=== PATIENT | female | born 1960 | race African-American/Black ===

== ENCOUNTER 2018-06-26 15:43 | Emergency (ER) | payer OTHER ==
--- NOTE | 2018-06-26 15:54 | PDOC ---
Rapid Medical Evaluation Time Seen by Provider: 06/26/18 15:51 Medical Evaluation: 06/26/18 15:51 HPI:Left sided abdominal pain and flan pain with radiation of symptoms PE:No gross deficits. ORDERS: Belly labs and UA Discharge Disposition - Diagnosis Abdominal pain - Referrals - Patient Instructions - Post Discharge Activity
[2018-06-26 15:56] VITALS: BP 146/80; PULSE 91; TEMP 98; BMI 33.3
--- NOTE | 2018-06-26 16:50 | PDOC ---
History of Present Illness - General Chief Complaint: Pain Stated Complaint: SENT BY URGENT CARE / ABD PAIN Time Seen by Provider: 06/26/18 15:51 History Source: Patient Exam Limitations: No Limitations - History of Present Illness Initial Comments: 06/26/18 17:06 58 y/o female with hx/o dm, ckd, htn c/o atrauamtic llq and left lower back pain for 2-3 days, waxing in severity, dull, w/o alleviating or excacerbating factors, partially positional. pt rates it at a 4 in the ED REVIEW OF SYSTEMS CONSTITUTIONAL: No fever, no chills, no fatigue EYES: No visual changes ENT: No ear pain, no sore throat CARDIOVASCULAR: No chest pain, no palpitations RESPIRATORY: No cough, no SOB GI: + abdominal pain, + nausea, no vomiting, no constipation, no diarrhea GENITOURINARY: No dysuria, no frequency, no hematuria MUSKULOSKELETAL: + backpain, no joint pain, no myalgias SKIN: No rash NEURO: No headache EXAMINATION CONSTITUTIONAL: Well-appearing; well-nourished; in no apparent distress HEAD: Normocephalic; atraumatic EYES: PERRL; EOM intact ENMT: External appears normal; normal oropharynx NECK: Supple; non-tender; no cervical lymphadenopathy CARD: Normal S1, S2; no murmurs, rubs, or gallops RESP: Normal chest excursion with respiration; breath sounds clear and equal bilaterally; no wheezes, rhonchi, or rales ABD: Soft, non-distended; + minimal left lower quadrant tender deep; no palpable organomegaly, no palpable hernias; no CVA tenderness bilaterally; EXT: Normal ROM in all four extremities; non-tender to palpation; distal pulses intact; + minimal left air spinal lower back tenderness to palpation with a negative straight leg raise bilaterally. SKIN: Warm, dry, no rash NEURO: No focal neurological deficiencies. Past History - Past Medical History Allergies/Adverse Reactions: Allergies Allergy/AdvReac Type Severity Reaction Status Date / Time No Known Allergies Allergy Verified 06/26/18 15:51 Home Medications: Ambulatory Orders Amlodipine Besylate 10 mg PO DAILY 06/26/18 Benazepril HCl 40 mg PO DAILY 06/26/18 Ferric Citrate [Auryxia] 210 mg PO DAILY 05/08/19 Glimepiride 4 mg PO DAILY 06/26/18 CVA: No COPD: No CHF: No DVT: No Dementia: No Diabetes: Yes (NIDM) HTN: Yes Hypercholesterolemia: Yes - Immunization History Immunization Up to Date: Yes - Suicide/Smoking/Psychosocial Hx Smoking History: Never smoked Information on smoking cessation initiated: No Hx Alcohol Use: No Drug/Substance Use Hx: No *Physical Exam - Vital Signs Last Vital Signs Temp Pulse Resp BP Pulse Ox 98.0 F 91 H 16 146/80 99 06/26/18 15:52 06/26/18 15:52 06/26/18 15:52 06/26/18 15:52 06/26/18 15:52 ED Treatment Course - LABORATORY CBC & Chemistry Diagram: 06/26/18 17:25 06/26/18 19:53 Medical Decision Making - Medical Decision Making 06/26/18 20:02 58-year-old female with history of hypertension diabetes presents with atraumatic left-sided abdominal and low back pain. We'll rule out diverticulitis with CT of abdomen and pelvis with by mouth contrast. We'll administer IV fluids and Tylenol. Will reassess. 06/26/18 22:33 Patient reassessed. Patient is resting comfortably and is currently symptom- free. Repeat abdominal exam reveals no focal tenderness, there is no guarding or rebound, patient tolerates by mouth solids and liquids in the ER. CBC reveals no evidence of significant leukocytosis. CMP reveals elevated BUN to creatinine ratio. CT of abdomen and pelvis shows no evidence of acute intra- abdominal pathology. There is no evidence of acute appendicitis/diverticulitis/ SBO. Is no evidence of hydronephrosis or hydroureter. At this time, I believe patient is safe for outpatient discharge with PMD follow-up. *DC/Admit/Observation/Transfer Diagnosis at time of Disposition: Abdominal pain Qualifiers: Abdominal location: unspecified location Qualified Code(s): R10.9 - Unspecified abdominal pain Low back pain Qualifiers: Chronicity: acute Back pain laterality: left Sciatica presence: without sciatica Qualified Code(s): M54.5 - Low back pain - Discharge Dispostion Disposition: HOME Condition at time of disposition: Stable - Referrals Referrals: Nelda Solis MD [Staff Physician] - - Patient Instructions Printed Discharge Instructions: DI for Abdominal Pain-Adult, DI for Low Back Pain - Post Discharge Activity
[2018-06-26] MEDS ORDERED: SODIUM CHLORIDE 1,000 ML IV STA (17:01)
[2018-06-26] MEDS ORDERED: ACETAMINOPHEN 1000 MG/100 ML VIAL (NON FORMULARY) IVPB ONE (17:01)
[2018-06-26] MEDS ORDERED: ACETAMINOPHEN INJECTION 100 ML IVPB ONE (17:09)
[2018-06-26 17:36] LABS: BASO % 0.3 % (0-2.0); EOS % 1.6 % (0-4.5); HEMATOCRIT 31.1 % (32.4-45.2); HEMOGLOBIN 9.6 GM/dL (10.7-15.3); LYMPH % 16.6 % (8-40); MCH 27.8 pg (25.7-33.7); MEAN CELL VOLUME 89.5 fl (80-96); MEAN PLT VOLUME 9.4 fl (7.5-11.1); MONO % 13.2 % (3.8-10.2); NEUT % 68.3 % (42.8-82.8); PLATELET COUNT 250 K/MM3 (134-434); RBC 3.47 M/mm3 (3.60-5.2); WHITE BLOOD COUNT 8.6 K/mm3 (4.0-10.0)
[2018-06-26 17:59] LABS: URINE APPEARANCE CLEAR; URINE BILIRUBIN NEGATIVE (NEGATIVE); URINE COLOR YELLOW; URINE GLUCOSE (UA) NEGATIVE (NEGATIVE); URINE KETONE NEGATIVE (NEGATIVE); URINE LEUK ESTERASE NEGATIVE (NEGATIVE); URINE NITRITE NEGATIVE (NEGATIVE); URINE PROTEIN NEGATIVE (NEGATIVE); URINE UROBILINOGEN 0.2 mg/dL (0.2-1.0)
[2018-06-26 20:33] LABS: ALBUMIN 3.8 g/dl (3.4-5.0); BILIRUBIN,TOTAL 0.4 mg/dL (0.2-1); CALCIUM 9.2 mg/dL (8.5-10.1); CREATININE 1.7 mg/dL (0.55-1.3); POTASSIUM 4.1 mmol/L (3.5-5.1); TOT PROT 7.6 g/dl (6.4-8.2)
--- NOTE | 2018-06-27 17:17 | EKG ---
Test Reason : Blood Pressure : / mmHG Vent. Rate : 091 BPM Atrial Rate : 091 BPM P-R Int : 158 ms QRS Dur : 074 ms QT Int : 346 ms P-R-T Axes : 054 018 031 degrees QTc Int : 425 ms NORMAL SINUS RHYTHM NORMAL ECG NO PREVIOUS ECGS AVAILABLE Confirmed by PEYTON FREEMAN MD ([id number]) on 06/27/2018 5:17:33 PM Referred By: Confirmed By:PEYTON FREEMAN MD
== END 2018-06-26 23:04 | disposition home or self-care (01) ==
LOC: JER 15:43
PROC: 3E033NZ Introduction of Analgesics, Hypnotics, Sedatives into Peripheral Vein, Percutaneous Approach (ICD-10-PCS; principal; 2018-06-26)
DX: M54.5 Low back pain (principal); R10.9 Unspecified abdominal pain
CPT/HCPCS: 36415; 74176-TC; 80053; 81003; 85025; 87086; 93005; 93010; 99283-25; J0131; J7030

== ENCOUNTER 2019-10-27 00:03 | Inpatient (IN) | payer OTHER ==
[2019-10-27] MEDS ORDERED: SODIUM CHLORIDE 0.9% 500 ML INFUS.BAG IV ONE (01:57)
[2019-10-27] MEDS ORDERED: ACETAMINOPHEN 500 MG TABLET (FP) PO ONE (01:57)
--- NOTE | 2019-10-27 02:01 | PDOC ---
Attending Attestation - Resident Resident Name: Iain Cote - ED Attending Attestation I have performed the following: I have examined & evaluated the patient, The case was reviewed & discussed with the resident, I agree w/resident's findings & plan - HPI HPI: 10/27/19 04:04 Pt comes with fever and cough and feeling crummy at home. States that she thinks she has a UTI and or pneumonia and that due to her infection, she has uncontroll ed blood sugars. She has no abd pain and no N/V/D or constipation or abd pain SHe has no flank pain. - Physicial Exam PE: 10/27/19 04:04 Agree with resident exam 10/27/19 06:38 Pt has normal heart and lungs. Fever in the ER on arrival; now defervesced. Pt is aleert and awake and states that she feels better Pt has abd and flank exam. Pt moving all extremities and she has no pitting [id number] - Medical Decision Making 10/27/19 04:04 Pt treated for community acquired pneumonia 10/27/19 04:05 Pt has anemia and renal insuff Heart Score/ECG Review - ECG Intrepretation Rhythm: Regular Rhythm - [place]: Normal - P and [place] Delta Wave(s) Present: No WPW: No - QRS Poor R Wave Progression: No Q Wave Present: No - ST and T Early Repolarization: No Non Specific ST-T Wave changes: No Flattened T Waves: No Prolonged Q-T Interval: No - ECG Impressions Normal ECG: Yes Non-specific ST Elevation: No Ischemic Changes: No Bradycardia: No Torsades susanna Pointes: No WPW: No Discharge - Discharge Information Problems reviewed: Yes Clinical Impression/Diagnosis: CHARLES (acute kidney injury) Sepsis Qualifiers: Sepsis type: sepsis due to unspecified organism Sepsis acute organ dysfunction status: without acute organ dysfunction Qualified Code(s): A41.9 - Sepsis, unspecified organism Pneumonia Qualifiers: Pneumonia type: due to unspecified organism Laterality: unspecified laterality Lung location: unspecified part of lung Qualified Code(s): J18.9 - Pneumonia, unspecified organism Anemia Qualifiers: Anemia type: unspecified type Qualified Code(s): D64.9 - Anemia, unspecified - Follow up/Referral - Patient Discharge Instructions - Post Discharge Activity
[2019-10-27] MEDS ORDERED: ACETAMINOPHEN 500 MG TABLET (FP) ONE (02:24)
[2019-10-27 02:45] LABS: BASO % 0.2 % (0-2.0); HEMATOCRIT 26.8 % (32.4-45.2); HEMOGLOBIN 8.7 GM/dL (10.7-15.3); LYMPH % 5.6 % (8-40); MCH 29.1 pg (25.7-33.7); MCHC 32.4 g/dl (32.0-36.0); MEAN CELL VOLUME 89.7 fl (80-96); MEAN PLT VOLUME 9.9 fl (7.5-11.1); MONO % 18.3 % (3.8-10.2); NEUT % 75.9 % (42.8-82.8); PLATELET COUNT 243 K/MM3 (134-434); RBC 2.98 M/mm3 (3.60-5.2); RDW 15.7 % (11.6-15.6); WHITE BLOOD COUNT 15.8 K/mm3 (4.0-10.0)
[2019-10-27 02:58] LABS: INR 1.23 (0.83-1.09); PROTHROMBIN TIME (PATIENT) 14.5 SEC (9.7-13.0)
[2019-10-27 03:01] LABS: ACTIVATED PTT 31.5 SECONDS (25.2-36.5)
[2019-10-27 03:09] LABS: ALBUMIN 3.6 g/dl (3.4-5.0); ALK PHOS 79 U/L (45-117); ANION GAP 10 MMOL/L (8-16); BILIRUBIN,TOTAL 1.1 mg/dL (0.2-1); BLOOD UREA NITROGEN 40.7 mg/dL (7-18); CALCIUM 8.6 mg/dL (8.5-10.1); CHLORIDE 100 mmol/L (98-107); CO2 23 mmol/L (21-32); CREATININE 2.5 mg/dL (0.55-1.3); GLUCOSE,RANDOM 209 mg/dL (74-106); POTASSIUM 4.6 mmol/L (3.5-5.1); SGOT/AST 29 U/L (15-37); SGPT/ALT 28 U/L (13-61); SODIUM 133 mmol/L (136-145); TOT PROT 8.2 g/dl (6.4-8.2)
[2019-10-27] MEDS ORDERED: CEFTRIAXONE 1,000 MG in DEXTROSE 5%-WATER - 50 ML IVPB ONE (03:41)
[2019-10-27] MEDS ORDERED: AZITHROMYCIN IVPB 500 MG in DEXTROSE 5%-WATER - 250 ML IVPB ONE (03:42)
--- NOTE | 2019-10-27 03:59 | PDOC ---
History of Present Illness - General Chief Complaint: Blood Sugar Problem Stated Complaint: TEMPERATURE,HIGH BLOOD SUGAR Time Seen by Provider: 10/27/19 01:43 - History of Present Illness Initial Comments: 10/27/19 03:48 59yo F with PMH DM, CKD, HTN, anemia presents with fever for one day. States she has felt febrile and is congested. Also reports pain in right wrist for 2 days. Denies trauma. States her blood sugar was in the 190s at home, which is high for her. ROS otherwise negative. PMH/PSH: as above Home Medications Medication Instructions Recorded Amlodipine Besylate 10 mg PO DAILY 06/26/18 Benazepril HCl 40 mg PO DAILY 06/26/18 Ferric Citrate [Auryxia] 210 mg PO DAILY 06/26/18 Glimepiride 4 mg PO DAILY 06/26/18 Allergies Allergy/AdvReac Type Severity Reaction Status Date / Time No Known Allergies Allergy Verified 10/27/19 00:32 PCP: [facility] GENERAL/CONSTITUTIONAL: fever. No weakness. HEAD, EYES, EARS, NOSE AND THROAT: No change in vision. No ear pain or discharge. No sore throat. CARDIOVASCULAR: No chest pain or shortness of breath RESPIRATORY: No cough, wheezing, or hemoptysis. GASTROINTESTINAL: No nausea, vomiting, diarrhea or constipation. GENITOURINARY: No dysuria, frequency, or change in urination. MUSCULOSKELETAL: right wrist pain No neck or back pain. SKIN: No rash NEUROLOGIC: No headache, vertigo, loss of consciousness, or change in strength/sensation. ENDOCRINE: No increased thirst. No abnormal weight change HEMATOLOGIC/LYMPHATIC: No anemia, easy bleeding, or history of blood clots. ALLERGIC/IMMUNOLOGIC: No hives or skin allergy. PE GENERAL: Awake, alert, and fully oriented, in no acute distress HEAD: No signs of trauma, normocephalic, atraumatic EYES: PERRLA, EOMI, sclera anicteric, conjunctiva clear ENT: Auricles normal inspection, hearing grossly normal, nares patent, oropharynx clear without exudates. Moist mucosa NECK: Normal ROM, supple, no lymphadenopathy, JVD, or masses LUNGS: No distress, speaks full sentences, clear to auscultation bilaterally HEART: Regular rate and rhythm, normal S1 and S2, no murmurs, rubs or gallops, peripheral pulses normal and equal bilaterally. ABDOMEN: Soft, nontender, normoactive bowel sounds. No guarding, no rebound. No masses EXTREMITIES : Normal inspection, Normal range of motion. 1+ b/l pitting LE edema. No clubbing or cyanosis. right wrist minimally swollen and tender. no erythema or fluctuance. full active and passive ROM. Sensation and strength intact. NEUROLOGICAL: Cranial nerves II through XII grossly intact. Normal speech, normal gait, no focal sensorimotor deficits SKIN: Warm, Dry, normal turgor, no rashes or lesions noted Vital Signs - 24 hr 10/27/19 10/27/19 00:30 00:45 Temperature 101.4 F H 100.6 F H Pulse Rate 100 H Pulse Rate [ 102 H Radial] Respiratory 18 20 Rate Blood Pressure 136/64 Blood Pressure 146/70 [Left Arm] O2 Sat by Pulse 100 99 Oximetry (%) MDM: 59yo F with PMH DM, CKD, HTN, anemia presents with fever and congestion for one day. Also reports right wrist pain. Vitals notable for fever and tachycardia -- SIRS. Will do septic workup. Low suspicion for septic arthritis in right wrist. Will get plain films to r/o fracture. -EKG, CXR, R wrist xray, septic labs -tylenol, 1000ml fluids 10/27/19 03:59 EKG: pending CXR: possible right consolidation (my read) Labs: white count without shift, anemia worse from baseline, Cr worse from baseline UA: pos nitrites, 2+ leukocyte esterase, large WBC and bacteria. Was high in the past and does not express UTI symptoms, so could be asymptomatic bacturia. x-ray wrist pending Will treat for presumptive community aquired pneumonia with ceftriaxone and azithromycin Admit for pneumonia, CHARLES, acute on chronic anemia. 10/27/19 04:59 Signed out to admitting team. Past History - Medical History Allergies/Adverse Reactions: Allergies Allergy/AdvReac Type Severity Reaction Status Date / Time No Known Allergies Allergy Verified 10/27/19 00:32 Home Medications: Ambulatory Orders Amlodipine Besylate 10 mg PO DAILY 06/26/18 Benazepril HCl 40 mg PO DAILY 06/26/18 Ferric Citrate [Auryxia] 210 mg PO DAILY 06/26/18 Glimepiride 4 mg PO DAILY 06/26/18 CVA: No COPD: No CHF: No DVT: No Dementia: No Diabetes: Yes (NIDM) HTN: Yes Hypercholesterolemia: Yes - Reproductive History Is Patient Now?: No - Immunization History Immunization Up to Date: Yes - Psycho-Social/Smoking History Smoking History: Never smoked Information on smoking cessation initiated: No - Substance Abuse Hx (Audit-C & DAST Scrn) How often the patient has a drink containing alcohol: Never Score: In Men: 4 or > Positive; In Women: 3 or > Positive: 0 Screen Result (Pos requires Nsg. Audit-10AR): Negative In the last yr the pt used illegal drug/Rx for NonMed reason: No Score: Yes response is considered Positive: 0 Screen Result (Positive result requires Nsg. DAST-10): Negative *Physical Exam - Vital Signs Last Vital Signs Temp Pulse Resp BP Pulse Ox 100.6 F H 102 H 20 146/70 99 10/27/19 00:45 10/27/19 00:45 10/27/19 00:45 10/27/19 00:45 10/27/19 00:45 ED Treatment Course - LABORATORY CBC & Chemistry Diagram: 10/27/19 02:10 10/27/19 02:10 - ADDITIONAL ORDERS Additional order review: Laboratory Results 10/27/19 10/27/19 10/27/19 02:10 02:10 02:10 PT with INR 14.50 H INR 1.23 H PTT (Actin FS) 31.5 Sodium 133 L Potassium 4.6 Chloride 100 Carbon Dioxide 23 Anion Gap 10 BUN 40.7 H Creatinine 2.5 H Est GFR (CKD-EPI)AfAm 23.26 Est GFR (CKD-EPI)NonAf 20.07 POC Glucometer Random Glucose 209 H Lactic Acid 0.8 Calcium 8.6 Total Bilirubin 1.1 H AST 29 ALT 28 Alkaline Phosphatase 79 Troponin I < 0.02 Total Protein 8.2 Albumin 3.6 10/27/19 00:32 PT with INR INR PTT (Actin FS) Sodium Potassium Chloride Carbon Dioxide Anion Gap BUN Creatinine Est GFR (CKD-EPI)AfAm Est GFR (CKD-EPI)NonAf POC Glucometer 205 Random Glucose Lactic Acid Calcium Total Bilirubin AST ALT Alkaline Phosphatase Troponin I Total Protein Albumin 10/27/19 10/27/19 02:10 00:32 RBC 2.98 L MCV 89.7 MCHC 32.4 RDW 15.7 H MPV 9.9 Neutrophils % 75.9 Lymphocytes % 5.6 L D Monocytes % 18.3 H Eosinophils % 0.0 D Basophils % 0.2 POC Glucometer 205 - RADIOLOGY Radiology Studies Ordered: Category Date Time Status CHEST X-RAY PORTABLE* [RAD] Stat Radiology 10/27/19 01:55 Taken WRIST W/HAND-RIGHT* [RAD] Stat Radiology 10/27/19 03:46 Ordered WRIST W/HAND-RIGHT* [RAD] Stat Radiology 10/27/19 03:46 Stop Req - Medications Given in the ED: ED Medications Discontinued Medications Generic Name Dose Route Start Last Admin Trade Name Freq PRN Reason Stop Dose Admin Acetaminophen 1,000 mg 10/27/19 01:57 10/27/19 02:30 Tylenol - PO 10/27/19 01:58 1,000 mg ONCE ONE Administration Sodium Chloride 1,000 ml 10/27/19 01:57 10/27/19 02:41 Normal Saline - IV 10/27/19 01:58 1,000 ml ONCE ONE Administration Discharge - Discharge Information Problems reviewed: Yes Clinical Impression/Diagnosis: CHARLES (acute kidney injury) Sepsis Qualifiers: Sepsis type: sepsis due to unspecified organism Sepsis acute organ dysfunction status: without acute organ dysfunction Qualified Code(s): A41.9 - Sepsis, unspecified organism Pneumonia Qualifiers: Pneumonia type: due to unspecified organism Laterality: unspecified laterality Lung location: unspecified part of lung Qualified Code(s): J18.9 - Pneumonia, unspecified organism Anemia Qualifiers: Anemia type: unspecified type Qualified Code(s): D64.9 - Anemia, unspecified - Admission Yes - Follow up/Referral - Patient Discharge Instructions - Post Discharge Activity
[2019-10-27] MEDS ORDERED: CEFTRIAXONE 1 GM/50 ML BAG ONE (04:22)
[2019-10-27] MEDS ORDERED: AZITHROMYCIN IVPB 500 MG/250 ML BAG IVPB ONE (04:22)
[2019-10-27 04:24] LABS: EPI CELLS >36 /uL (0-25.1); HYALINE CASTS 4 /uL (0-3.1); URINE APPEARANCE CLOUDY; URINE BACTERIA >9,000 /uL (0-1359); URINE BILIRUBIN NEGATIVE (NEGATIVE); URINE COLOR YELLOW; URINE GLUCOSE (UA) NEGATIVE (NEGATIVE); URINE KETONE NEGATIVE (NEGATIVE); URINE LEUK ESTERASE 2+ (NEGATIVE); URINE NITRITE POSITIVE (NEGATIVE); URINE PROTEIN 1+ (NEGATIVE); URINE RBC 15 /uL (0-23.9); URINE WBC 481 /uL (0-25.8)
--- NOTE | 2019-10-27 04:46 | PN ---
Teaching Attending Note Name of Resident: Natalee Gutierrez ATTENDING PHYSICIAN STATEMENT I saw and evaluated the patient. I reviewed the resident's note and discussed the case with the resident. I agree with the resident's findings and plan as documented. SUBJECTIVE: 59yoF with history of HTN, T2DM, CKD, and chronic anemia who presents with 2 days of malaise and 1 day of fever. Patient notes mild cough without significant sputum production, also has malodorous urine but denies dysuria or frequency. No nausea, vomiting, diarrhea, melena, hematochezia, lightheadedness, syncope, chest pain, palpitations. Patient was febrile to 101.4F in the ED, tachycardic to 102. Labs notable for WBC 15.8, Hgb 8.7, creatinine 2.5 from baseline around 1.9. Urinalysis with significant amoutn of epithelial cells but also +leuk esterases, nitrites, WBC. CXR equivocal, possible LLL infiltrate. Patient received ceftriaxone and azithromycin and admitted for further management. OBJECTIVE: Vital Signs - 24 hr 10/27/19 10/27/19 10/27/19 00:30 00:45 05:17 Temperature 101.4 F H 100.6 F H 98.3 F Pulse Rate 100 H Pulse Rate [ 102 H 93 H Radial] Respiratory 18 20 18 Rate Blood Pressure 136/64 Blood Pressure 146/70 133/58 L [Left Arm] O2 Sat by Pulse 100 99 97 Oximetry (%) EXAM Gen: awake, alert, NAD HEENT: NC/AT CV: RRR, no MRG Resp: Diminished right base; otherwise clear Abd: Soft, NT, ND. No CVA tenderness Ext: no edema Neuro: CN II-XII grossly intact Laboratory Results - last 24 hr 10/27/19 10/27/19 10/27/19 00:32 02:10 02:10 WBC 15.8 H RBC 2.98 L Hgb 8.7 L Hct 26.8 L D MCV 89.7 MCH 29.1 MCHC 32.4 RDW 15.7 H Plt Count 243 MPV 9.9 Absolute Neuts (auto) 12.0 H Neutrophils % 75.9 Lymphocytes % 5.6 L D Monocytes % 18.3 H Eosinophils % 0.0 D Basophils % 0.2 Nucleated RBC % 0 PT with INR 14.50 H INR 1.23 H PTT (Actin FS) 31.5 Sodium Potassium Chloride Carbon Dioxide Anion Gap BUN Creatinine Est GFR (CKD-EPI)AfAm Est GFR (CKD-EPI)NonAf POC Glucometer 205 Random Glucose Lactic Acid Calcium Total Bilirubin AST ALT Alkaline Phosphatase Troponin I Total Protein Albumin Urine Color Urine Appearance Urine pH Ur Specific [place] Urine Protein Urine Glucose (UA) Urine Ketones Urine Blood Urine Nitrite Urine Bilirubin Urine Urobilinogen Ur Leukocyte Esterase Urine WBC (Auto) Urine RBC (Auto) Urine Casts (Auto) U Epithel Cells (Auto) Urine Bacteria (Auto) 10/27/19 10/27/19 10/27/19 02:10 02:10 04:00 WBC RBC Hgb Hct MCV MCH MCHC RDW Plt Count MPV Absolute Neuts (auto) Neutrophils % Lymphocytes % Monocytes % Eosinophils % Basophils % Nucleated RBC % PT with INR INR PTT (Actin FS) Sodium 133 L Potassium 4.6 Chloride 100 Carbon Dioxide 23 Anion Gap 10 BUN 40.7 H Creatinine 2.5 H Est GFR (CKD-EPI)AfAm 23.26 Est GFR (CKD-EPI)NonAf 20.07 POC Glucometer Random Glucose 209 H Lactic Acid 0.8 Calcium 8.6 Total Bilirubin 1.1 H AST 29 ALT 28 Alkaline Phosphatase 79 Troponin I < 0.02 Total Protein 8.2 Albumin 3.6 Urine Color Yellow Urine Appearance Cloudy Urine pH 5.0 Ur Specific [place] 1.013 Urine Protein 1+ H Urine Glucose (UA) Negative Urine Ketones Negative Urine Blood Negative Urine Nitrite Positive H Urine Bilirubin Negative Urine Urobilinogen 1.0 Ur Leukocyte Esterase 2+ H Urine WBC (Auto) 481 Urine RBC (Auto) 15 Urine Casts (Auto) 4 U Epithel Cells (Auto) >36 Urine Bacteria (Auto) >9,000 Imaging, EKG reviewed in chart ASSESSMENT AND PLAN: 59yoF with history of HTN, T2DM, CKD, and chronic anemia who presents with 2 days of malaise and 1 day of fever, foudn to have sepiss secondary to UTI vs pneumonia. Sepsis secondary to UTI vs pneumonia No clear focalizing symptoms UA appears grossly positive but may be contaminated given epithelial cells CXR hazy but no pulmonary symptoms - f/u final CXR read - rpt UA, culture - continue ceftriaxone, azithromycin - sputum culture - additional 1L NS bolus given patient still mildly tachycardic CHARLES on CKD Creatinine 2.5 from 1.9 - trend - aviod nephrotoxic meds Acute on chronic anemia Hgb 8.7, appears to have been around 9.5-10 in the past Normocytic Patient states she was on iron supplements but was told to stop a while ago - iron panel, B12, folate HTN: continue home meds DM: ISS DVT ppx: heparin subq
[2019-10-27] MEDS ORDERED: SODIUM CHLORIDE 1,000 ML IV ONE (06:42)
--- NOTE | 2019-10-27 06:53 | HP ---
CHIEF COMPLAINT: my daughter made me come in PCP: HISTORY OF PRESENT ILLNESS: 59yo F with PMHx of HTN, DM, CKD, anemia who presented with a home fever of 102F and fluctuating home glucose measurements. Patient explained that she ate a gyro about 2 days ago and has been feeling "funny" ever since. Last night she felt that she was feeling worse so her daughter measured her temperature at 102F which prompted the daughter to bring in the patient. She had some mild runny nose with clear drainage and was coughing up some phlegm. Patient also explained that her home glucose measurements have been fluctuating from the 50s to the 90s and up to the 200s. With the low glucose she would feel dizzy but she otherwise denied any associated symptoms including no headaches, SOB, palpitations, NVD, constipation, dysuria, polyuria. She did endorse noticing a strong odor of her urine. *patient was unsure of her meds: said she goes to [facility]. ER course was notable for: (1) temp 100.6F, P 102, WBC 15.8, Hgb 8.7, Na 133, BUN 40.7, Cr 2.5, and glucose 209 (2) UA was cloudy with 2+ leukocyte esterase and positive for nitrites (>36 epithelial cells and >9000 bacteria) (3) CXR showed mild bilateral blunting of the costophrenic angles - final read pending Recent Travel: none PAST MEDICAL HISTORY: as per HPI PAST SURGICAL HISTORY: tubal ligation Family History: mother: HTN and "pill-dependent" DM, kidney issues - she ended up on dialysis father: "insulin-dependent" DM - runs in the entire side of father's family Social History: Smoking: denied Alcohol: denied Drugs: denied 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 Home: lives at home with son and niece Allergies No Known Allergies Allergy (Verified 10/27/19 00:32) HOME MEDICATIONS: Home Medications Medication Instructions Recorded Amlodipine Besylate 10 mg PO DAILY 06/26/18 Benazepril HCl 40 mg PO DAILY 06/26/18 Ferric Citrate [Auryxia] 210 mg PO DAILY 06/26/18 Glimepiride 4 mg PO DAILY 06/26/18 REVIEW OF SYSTEMS as per HPI PHYSICAL EXAMINATION Vital Signs - 24 hr 10/27/19 10/27/19 10/27/19 00:30 00:45 05:17 Temperature 101.4 F H 100.6 F H 98.3 F Pulse Rate 100 H Pulse Rate [ 102 H 93 H Radial] Respiratory 18 20 18 Rate Blood Pressure 136/64 Blood Pressure 146/70 133/58 L [Left Arm] O2 Sat by Pulse 100 99 97 Oximetry (%) GENERAL: AAF appears younger than stated age when mask removed, awake and fully oriented, in no acute distress, lying in bed with daughter HEAD: Normal with no signs of trauma EYES: Pupils equal, round and reactive to light, extraocular movements intact LUNGS: mild generalized inspiratory crackles R>L side, expiratory wheezing on RUL HEART: Regular rate and rhythm, normal S1 and S2 without murmur ABDOMEN: Soft, nontender, protuberant, hypoactive bowel sounds, ~2cm scar at umbilicus EXTREMITIES: 2+ dorsalis pedis and radial pulses, warm, no peripheral edema. NEUROLOGICAL: Cranial nerves II-XII grossly intact. Normal speech with symetrical facial movements PSYCHIATRIC: Cooperative. Good eye contact. Appropriate mood and affect. Abnormal Lab Results 10/27/19 10/27/19 10/27/19 02:10 02:10 02:10 WBC 15.8 H RBC 2.98 L Hgb 8.7 L Hct 26.8 L D RDW 15.7 H Absolute Neuts (auto) 12.0 H Lymphocytes % 5.6 L D Monocytes % 18.3 H PT with INR 14.50 H INR 1.23 H Sodium 133 L BUN 40.7 H Creatinine 2.5 H Random Glucose 209 H Total Bilirubin 1.1 H Urine Protein Urine Nitrite Ur Leukocyte Esterase 10/27/19 04:00 WBC RBC Hgb Hct RDW Absolute Neuts (auto) Lymphocytes % Monocytes % PT with INR INR Sodium BUN Creatinine Random Glucose Total Bilirubin Urine Protein 1+ H Urine Nitrite Positive H Ur Leukocyte Esterase 2+ H ASSESSMENT/PLAN: 59yo F with PMHx of HTN, DM, CKD, anemia who presented with a home fever of 102F and fluctuating home glucose measurements. ED workup was remarkable for temp 100.6F, P 102, WBC 15.8, Hgb 8.7, Na 133, BUN 40.7, Cr 2.5, and glucose 209. UA was cloudy with 2+ leukocyte esterase and positive for nitrites (>36 epithelial cells and >9000 bacteria), and CXR showed mild bilateral blunting of the costophrenic angles. Patient was admitted for treatment of sepsis 2/2 due to UTI vs PNA. #Sepsis 2/2 to UTI vs PNA - will continue azithromycin and ceftriaxone - ordered sputum cultures - repeat UA ordered - another 1L NS bolus ordered #Anemia - ordered iron panel, B12, folate #DM - BGM ACHS ISS #FEN - no standing fluids - replete lytes PRN - sodium/diabetic diet #PPX - DVT: heparin #Dispo: medSurg Family Medical History Family History: As Documented Visit type - Emergency Visit Emergency Visit: Yes ED Registration Date: 10/27/19 Care time: The patient presented to the Emergency Department on the above date and was hospitalized for further evaluation of their emergent condition. - New Patient This patient is new to me today: Yes Date on this admission: 10/27/19 - Critical Care Critical Care patient: No ATTENDING PHYSICIAN STATEMENT I saw and evaluated the patient. I reviewed the resident's note and discussed the case with the resident. I agree with the resident's findings and plan as documented. SUBJECTIVE: OBJECTIVE: ASSESSMENT AND PLAN:
[2019-10-27] MEDS ORDERED: PIPERACILLIN/TAZOB 3.375 GM 3.375 GM in DEXTROSE 5%-WATER - 50 ML IVPB ONE (09:13)
--- NOTE | 2019-10-27 09:22 | PN ---
Physical Exam: SUBJECTIVE: Patient seen and examined at bedside no acute events overnight patient states that she is feeling ok; she is just feeling a little bit tired but she wants to go home; she does endorse foul smelling odor from her urine and has had frequent UTIs in the past OBJECTIVE: Vital Signs Period Temp Pulse Resp BP Sys/Chan Pulse Ox Last 24 Hr 98.3 F-101.4 F 93-102 18-20 133-151/58-76 90-100 GENERAL: The patient is awake, alert, and fully oriented, in no acute distress. EYES: PEERLA: EOMI; no scleral icterus. NECK: no JVD; no lymphadenopathy LUNGS: CTA B/L n rales, rhonchi or wheezing HEART: Regular rate and rhythm, S1, S2 without murmur, rub or gallop. ABDOMEN: Soft, NT ND +BS EXTREMITIES: 2+ pulses, warm, well-perfused, no edema. NEUROLOGICAL: Cranial nerves II through XII grossly intact. Normal speech, gait not observed. PSYCH: Normal mood, normal affect. SKIN: Warm, dry, normal turgor, no rashes or lesions noted Laboratory Results - last 24 hr 10/27/19 10/27/19 10/27/19 00:32 02:10 02:10 WBC 15.8 H RBC 2.98 L Hgb 8.7 L Hct 26.8 L D MCV 89.7 MCH 29.1 MCHC 32.4 RDW 15.7 H Plt Count 243 MPV 9.9 Absolute Neuts (auto) 12.0 H Neutrophils % 75.9 Lymphocytes % 5.6 L D Monocytes % 18.3 H Eosinophils % 0.0 D Basophils % 0.2 Nucleated RBC % 0 PT with INR 14.50 H INR 1.23 H PTT (Actin FS) 31.5 Sodium Potassium Chloride Carbon Dioxide Anion Gap BUN Creatinine Est GFR (CKD-EPI)AfAm Est GFR (CKD-EPI)NonAf POC Glucometer 205 Random Glucose Lactic Acid Calcium Total Bilirubin AST ALT Alkaline Phosphatase Troponin I Total Protein Albumin Urine Color Urine Appearance Urine pH Ur Specific [place] Urine Protein Urine Glucose (UA) Urine Ketones Urine Blood Urine Nitrite Urine Bilirubin Urine Urobilinogen Ur Leukocyte Esterase Urine WBC (Auto) Urine RBC (Auto) Urine Casts (Auto) U Epithel Cells (Auto) Urine Bacteria (Auto) 10/27/19 10/27/1920 02:10 02:10 04:00 WBC RBC Hgb Hct MCV MCH MCHC RDW Plt Count MPV Absolute Neuts (auto) Neutrophils % Lymphocytes % Monocytes % Eosinophils % Basophils % Nucleated RBC % PT with INR INR PTT (Actin FS) Sodium 133 L Potassium 4.6 Chloride 100 Carbon Dioxide 23 Anion Gap 10 BUN 40.7 H Creatinine 2.5 H Est GFR (CKD-EPI)AfAm 23.26 Est GFR (CKD-EPI)NonAf 20.07 POC Glucometer Random Glucose 209 H Lactic Acid 0.8 Calcium 8.6 Total Bilirubin 1.1 H AST 29 ALT 28 Alkaline Phosphatase 79 Troponin I < 0.02 Total Protein 8.2 Albumin 3.6 Urine Color Yellow Urine Appearance Cloudy Urine pH 5.0 Ur Specific [place] 1.013 Urine Protein 1+ H Urine Glucose (UA) Negative Urine Ketones Negative Urine Blood Negative Urine Nitrite Positive H Urine Bilirubin Negative Urine Urobilinogen 1.0 Ur Leukocyte Esterase 2+ H Urine WBC (Auto) 481 Urine RBC (Auto) 15 Urine Casts (Auto) 4 U Epithel Cells (Auto) >36 Urine Bacteria (Auto) >9,000 Active Medications Generic Name Dose Route Start Last Admin Trade Name Freq PRN Reason Stop Dose Admin Heparin Sodium (Porcine) 5,000 unit 10/27/19 08:30 Heparin - SQ TID [facility] Azithromycin 250 mg/ Dextrose 250 mls @ 250 mls/hr 10/28/19 10:00 IVPB DAILY [facility] Ceftriaxone Sodium 1 gm/ 50 mls @ 100 mls/hr 10/28/19 10:00 Dextrose IVPB DAILY [facility] Piperacillin Sod/Tazobactam 50 mls @ 100 mls/hr 10/27/19 09:13 Sod 3.375 gm/ Dextrose IVPB 10/27/19 09:42 ONCE ONE Protocol Insulin Aspart 1 vial 10/27/19 07:00 Novolog Vial Sliding Scale - SQ ACHS [facility] Protocol ASSESSMENT/PLAN: 59yo F with PMHx of HTN, DM, CKD, anemia who presented with a home fever of 102F and fluctuating home glucose measurements. #Sepsis 2/2 UTI v PNA UA positive; CXR shows no signs of inflitrate and patient is not endorsing any pulmonary symptoms currently -will dc azithro -c/w ceftriaxone -f/u blood and urine CX -monitor hemodynamics -maintain MAP >65 -tylenol PRN for fever #Anemia - ordered iron panel, B12, folate -likely anemia of chronic disease 2/2 to CKD #CHARLES on CKD patients Cr on arrival was 2.5 (baseline around 1.8) -IVF -renal US -urine lytes -monitor fluid status -monitor electrolytes #DM - BGM ACHS ISS -holding home meds #HTN -will need to reconcile home meds tomorrow as pharmacy is closed today due to the holiday #FEN - no standing fluids - replete lytes PRN - sodium/diabetic diet #PPX - DVT: heparin #Dispo: medSurg Problem List - Problems (1) CHARLES (acute kidney injury) Code(s): N17.9 - ACUTE KIDNEY FAILURE, UNSPECIFIED (2) Anemia Code(s): D64.9 - ANEMIA, UNSPECIFIED Qualifiers: Anemia type: unspecified type Qualified Code(s): D64.9 - Anemia, unspecified (3) Sepsis Code(s): A41.9 - SEPSIS, UNSPECIFIED ORGANISM Qualifiers: Sepsis type: sepsis due to unspecified organism Sepsis acute organ dysfunction status: without acute organ dysfunction Qualified Code(s): A41.9 - Sepsis, unspecified organism Visit type - Emergency Visit Emergency Visit: Yes ED Registration Date: 10/27/19 Care time: The patient presented to the Emergency Department on the above date and was hospitalized for further evaluation of their emergent condition. - New Patient This patient is new to me today: Yes Date on this admission: 10/27/19 - Critical Care Critical Care patient: No ATTENDING PHYSICIAN STATEMENT I saw and evaluated the patient. I reviewed the resident's note and discussed the case with the resident. I agree with the resident's findings and plan as documented. SUBJECTIVE: OBJECTIVE: ASSESSMENT AND PLAN:
[2019-10-27] MEDS: INSULIN SLIDING SCALE (NOVOLOG) 1 VIAL SQ SCH ×4 (09:40→22:18)
[2019-10-27] MEDS ORDERED: HEPARIN NA (PORCINE) 5,000 UNITS/ML 1ML VIAL ONE ×3 (09:58→22:09)
[2019-10-27] MEDS: HEPARIN NA (PORCINE) 5,000 UNITS/ML 1ML VIAL SQ SCH ×3 (10:04→22:19)
[2019-10-27 12:28] LABS: BASO % 0.2 % (0-2.0); EOS % 0.1 % (0-4.5); HEMOGLOBIN 8.5 GM/dL (10.7-15.3); LYMPH % 2.9 % (8-40); MCHC 32.6 g/dl (32.0-36.0); MEAN PLT VOLUME 9.5 fl (7.5-11.1); MONO % 15.3 % (3.8-10.2); NEUT % 81.5 % (42.8-82.8); PLATELET COUNT 207 K/MM3 (134-434); RBC 2.92 M/mm3 (3.60-5.2); RDW 15.1 % (11.6-15.6); WHITE BLOOD COUNT 16.8 K/mm3 (4.0-10.0)
[2019-10-27 12:54] LABS: IRON SERUM 11 ug/dL (50-175); TOTAL IRON BINDING CAPACITY 232 ug/dL (250-450)
[2019-10-27 12:59] LABS: ALBUMIN 3.2 g/dl (3.4-5.0); BILIRUBIN,TOTAL 0.7 mg/dL (0.2-1); BLOOD UREA NITROGEN 40.2 mg/dL (7-18); CALCIUM 8.5 mg/dL (8.5-10.1); CREATININE 2.3 mg/dL (0.55-1.3); MAGNESIUM 1.5 mg/dL (1.8-2.4); PHOSPHOROUS 2.8 mg/dL (2.5-4.9); TOT PROT 7.5 g/dl (6.4-8.2)
[2019-10-27] MEDS ORDERED: SODIUM CHLORIDE 500 ML IV STA (13:21)
[2019-10-27] MEDS ORDERED: ACETAMINOPHEN 325 MG TABLET (FP) ONE (16:08)
[2019-10-27] MEDS ORDERED: amLODIPine BESYLATE 10 MG TABLET (FP) PO SCH (16:27)
[2019-10-27] MEDS: amLODIPine BESYLATE 10 MG TABLET (FP) PO SCH (18:07)
[2019-10-27] MEDS ORDERED: amLODIPine BESYLATE 5 MG TABLET (FP) ONE (18:10)
--- NOTE | 2019-10-27 21:23 | EKG ---
Test Reason : Blood Pressure : / mmHG Vent. Rate : 091 BPM Atrial Rate : 091 BPM P-R Int : 148 ms QRS Dur : 066 ms QT Int : 346 ms P-R-T Axes : 071 053 042 degrees QTc Int : 425 ms NORMAL SINUS RHYTHM NORMAL ECG WHEN COMPARED WITH ECG OF 26-JUN-2018 16:38, NO SIGNIFICANT CHANGE WAS FOUND Confirmed by ITZEL BISHOP MD ([id number]) on 10/27/2019 9:23:06 PM Referred By: Confirmed By:ITZEL BISHOP MD
[2019-10-27 22:02] LABS: EPI CELLS >36 /uL (0-25.1); HYALINE CASTS 6 /uL (0-3.1); URINE APPEARANCE CLOUDY; URINE BACTERIA 63 /uL (0-1359); URINE BILIRUBIN NEGATIVE (NEGATIVE); URINE COLOR YELLOW; URINE GLUCOSE (UA) NEGATIVE (NEGATIVE); URINE KETONE NEGATIVE (NEGATIVE); URINE LEUK ESTERASE TRACE (NEGATIVE); URINE NITRITE NEGATIVE (NEGATIVE); URINE PROTEIN 1+ (NEGATIVE); URINE WBC 59 /uL (0-25.8)
[2019-10-27] MEDS ORDERED: INSULIN SLIDING SCALE (NOVOLOG) 1 VIAL SQ ONE (22:15)
[2019-10-27 22:39] LABS: URINE RBC 20.5 /uL (0-23.9)
[2019-10-28] MEDS ORDERED: ENOXAPARIN NA (PORCINE) 80 MG/0.8 ML DISP.SYRIN SQ ONE ×2 (04:03→04:19)
[2019-10-28 07:23] LABS: BASO % 0.1 % (0-2.0); EOS % 0.2 % (0-4.5); HEMATOCRIT 25.4 % (32.4-45.2); HEMOGLOBIN 8.1 GM/dL (10.7-15.3); LYMPH % 7.1 % (8-40); MCH 28.5 pg (25.7-33.7); MCHC 32.1 g/dl (32.0-36.0); MEAN CELL VOLUME 88.9 fl (80-96); MEAN PLT VOLUME 9.5 fl (7.5-11.1); MONO % 19.3 % (3.8-10.2); NEUT % 73.3 % (42.8-82.8); PLATELET COUNT 225 K/MM3 (134-434); RBC 2.86 M/mm3 (3.60-5.2); RDW 15.3 % (11.6-15.6); WHITE BLOOD COUNT 13.7 K/mm3 (4.0-10.0)
[2019-10-28] MEDS ORDERED: ACETAMINOPHEN 325 MG TABLET (FP) ONE ×2 (07:41→16:12)
[2019-10-28] MEDS: ACETAMINOPHEN 325 MG TABLET (FP) PO PRN ×2 (07:43→16:13)
[2019-10-28 08:00] LABS: ALBUMIN 3.1 g/dl (3.4-5.0); BILIRUBIN,TOTAL 0.6 mg/dL (0.2-1); BLOOD UREA NITROGEN 40.7 mg/dL (7-18); CALCIUM 7.9 mg/dL (8.5-10.1); CREATININE 2.3 mg/dL (0.55-1.3); MAGNESIUM 1.7 mg/dL (1.8-2.4); PHOSPHOROUS 2.7 mg/dL (2.5-4.9); POTASSIUM 4.2 mmol/L (3.5-5.1); TOT PROT 7.3 g/dl (6.4-8.2)
[2019-10-28] MEDS: INSULIN SLIDING SCALE (NOVOLOG) 1 VIAL SQ SCH ×4 (08:00→22:46)
--- NOTE | 2019-10-28 08:05 | PN ---
Teaching Attending Note Name of Resident: Rafael Grady ATTENDING PHYSICIAN STATEMENT I saw and evaluated the patient. I reviewed the resident's note and discussed the case with the resident. I agree with the resident's findings and plan as documented. SUBJECTIVE: Patient is comfortable with NAD OBJECTIVE: Vital Signs Temperature 98.4 F 10/28/19 06:24 Pulse Rate 102 H 10/28/19 06:24 Respiratory Rate 19 10/28/19 06:24 Blood Pressure 141/71 10/28/19 06:24 O2 Sat by Pulse Oximetry (%) 97 10/28/19 06:24 PE: per resident's note CBCD WBC 13.7 K/mm3 (4.0-10.0) H 10/28/19 06:00 RBC 2.86 M/mm3 (3.60-5.2) L 10/28/19 06:00 Hgb 8.1 GM/dL (10.7-15.3) L 10/28/19 06:00 Hct 25.4 % (32.4-45.2) L 10/28/19 06:00 MCV 88.9 fl (80-96) 10/28/19 06:00 MCHC 32.1 g/dl (32.0-36.0) 10/28/19 06:00 RDW 15.3 % (11.6-15.6) 10/28/19 06:00 Plt Count 225 K/MM3 (134-434) 10/28/19 06:00 MPV 9.5 fl (7.5-11.1) 10/28/19 06:00 CMP Sodium 137 mmol/L (136-145) 10/28/19 06:00 Potassium 4.2 mmol/L (3.5-5.1) 10/28/19 06:00 Chloride 105 mmol/L (98-107) 10/28/19 06:00 Carbon Dioxide 24 mmol/L (21-32) 10/28/19 06:00 Anion Gap 7 MMOL/L (8-16) L 10/28/19 06:00 BUN 40.7 mg/dL (7-18) H 10/28/19 06:00 Creatinine 2.3 mg/dL (0.55-1.3) H 10/28/19 06:00 Random Glucose 137 mg/dL (74-106) H 10/28/19 06:00 Calcium 7.9 mg/dL (8.5-10.1) L 10/28/19 06:00 Total Bilirubin 0.6 mg/dL (0.2-1) 10/28/19 06:00 AST 24 U/L (15-37) 10/28/19 06:00 ALT 26 U/L (13-61) 10/28/19 06:00 Alkaline Phosphatase 75 U/L (45-117) 10/28/19 06:00 Total Protein 7.3 g/dl (6.4-8.2) 10/28/19 06:00 Albumin 3.1 g/dl (3.4-5.0) L 10/28/19 06:00 CARDIAC ENZYMES Troponin I < 0.02 ng/ml (0.00-0.05) 10/27/19 02:10 Current Medications Generic Name Dose Route Start Last Admin Trade Name Freq PRN Reason Stop Dose Admin Acetaminophen 650 mg 10/27/19 15:38 10/28/19 07:43 Tylenol - PO 650 mg Q6H PRN Administration Fever Or Pain Amlodipine Besylate 10 mg 10/27/19 17:00 10/27/19 18:07 Norvasc - PO 10 mg DAILY ROSETTA Administration Ceftriaxone Sodium 1 gm/ 50 mls @ 100 mls/hr 10/28/19 10:00 Dextrose IVPB DAILY ROSETTA Azithromycin 250 mg/ Dextrose 250 mls @ 250 mls/hr 10/28/19 10:00 IVPB DAILY [facility] Insulin Aspart 1 vial 10/27/19 07:00 10/27/19 22:18 Novolog Vial Sliding Scale - SQ 4 units ACHS ROSETTA Administration Protocol Home Medications Medication Instructions Recorded Amlodipine Besylate 10 mg PO DAILY 06/26/18 Benazepril HCl 40 mg PO DAILY 06/26/18 Ferric Citrate [Auryxia] 210 mg PO DAILY 06/26/18 Furosemide [Lasix] 40 mg PO DAILY 10/27/19 Glipizide 5 mg PO DAILY 10/27/19 CXR: large heart, elevated right hemidiaphragm, otherwise no acute pathology Xray of the wrist/hand right side: no acute pathology Renal US: chronic scarring of both kidneys, few renal cysts unchanged from prior. Microbiology 10/27/19 02:10 Blood - Peripheral Venous Blood Culture - Preliminary NO GROWTH OBTAINED AFTER 24 HOURS, INCUBATION TO CONTINUE FOR 4 DAYS. 10/27/19 02:10 Blood - Peripheral Venous Blood Culture - Preliminary NO GROWTH OBTAINED AFTER 24 HOURS, INCUBATION TO CONTINUE FOR 4 DAYS. Laboratory Tests 10/27/19 10/27/19 10/27/19 06:13 12:09 12:09 D-Dimer Magnesium 1.5 L Iron 11 L TIBC 232 L Ferritin LD Total C-Reactive Protein COVID-19 (RODRIGUE) Pending 10/27/19 10/27/19 12:09 21:05 D-Dimer 2609 H Magnesium Iron TIBC Ferritin 374.4 LD Total 287 H C-Reactive Protein 18.6 H COVID-19 (RODRIGUE) ASSESSMENT AND PLAN: This patient is a 59yof with Pmhx of HTN, DM, CKD, anemia who presented with shortness of breath, fever of 102F at home with fluctuating blood sugar at home. #Sepsis due to UTI/ PNA cannot r/o covid: on ceftriaxone/zithromax , covid is pending, CT is not read yet , will call radiology follow dAILY MARKERS for covid, will start the patient on steroid and Ac, will monitor hemoglobin #Anemia: possible due to her CKd , folic acid and B12 normal #CHARLES on CKD: patients Cr on arrival was 2.5 (baseline around 1.8), adjust meds according to creatinine clearance which is around 25 #T2DM: continue with BGMs ACHS ISS #HTN: continue Amlodipine home meds #Hypomag: replete #Covid is pending: high suspecious for covid , follow markers DVT Px: eliquis Dispo: medSurg
[2019-10-28] MEDS ORDERED: methylPREDNISolone NA SUCC 40 MG/1 ML VIAL IVPUSH SCH (10:00)
[2019-10-28] MEDS ORDERED: AZITHROMYCIN IVPB 250 MG in DEXTROSE 5%-WATER - 250 ML IVPB SCH (10:00)
[2019-10-28] MEDS ORDERED: amLODIPine BESYLATE 10 MG TABLET (FP) PO SCH (10:00)
[2019-10-28] MEDS ORDERED: CEFTRIAXONE 1 GM in DEXTROSE 5%-WATER - 50 ML IVPB SCH (10:00)
[2019-10-28] MEDS ORDERED: methylPREDNISolone NA SUCC 40 MG/1 ML VIAL ONE (10:32)
[2019-10-28] MEDS ORDERED: CEFTRIAXONE 1 GM/50 ML BAG ONE (10:32)
[2019-10-28] MEDS: amLODIPine BESYLATE 10 MG TABLET (FP) PO SCH (10:40)
[2019-10-28] MEDS: APIXABAN 2.5 MG TABLET PO SCH ×2 (10:40→22:45)
[2019-10-28] MEDS ORDERED: CHOLECALCIFEROL (VIT D3) 1,000 UNIT (25 MCG) TABLET PO SCH (11:00)
[2019-10-28] MEDS ORDERED: ASCORBIC ACID 500 MG TABLET (FP) ONE (11:09)
[2019-10-28] MEDS ORDERED: ZINC SULFATE 220 MG CAPSULE (FP) ONE (11:09)
[2019-10-28] MEDS: ZINC SULFATE 220 MG CAPSULE (FP) PO SCH ×2 (11:14→22:45)
[2019-10-28] MEDS: ASCORBIC ACID 250 MG TABLET (FP) PO SCH ×2 (11:14→22:46)
--- NOTE | 2019-10-28 11:45 | CON.PULM ---
Consult Consult Specialty:: PULMONARY Referred by:: Dr Coe Reason for Consultation:: pneumonia - History of Present Illness Chief Complaint: abnormal glucose levels History of Present Illness: 59yo female with h/o HTN, DM, CKD, anemia who was admitted after she noted to have fluctuating blood sugars at home. She reports a mostly nonproductive cough and wheezing. Fevers at home. No shortness of breath, nausea, vomiting, d iarrhea. Reports malodorous urine. She denies history of asthma/COPD. She is a nonsmoker. - History Source History Provided By: Patient, Medical Record Limitations to Obtaining History: No Limitations - Past Medical History Cardio/Vascular: Yes: HTN ...: No Endocrine: Yes: Diabetes Mellitus - Alcohol/Substance Use Hx Alcohol Use: No - Smoking History Smoking history: Never smoked Home Medications - Allergies Allergies/Adverse Reactions: Allergies Allergy/AdvReac Type Severity Reaction Status Date / Time No Known Allergies Allergy Verified 10/27/19 00:32 - Home Medications Home Medications: Ambulatory Orders Amlodipine Besylate 10 mg PO DAILY 06/26/18 Benazepril HCl 40 mg PO DAILY 06/26/18 Ferric Citrate [Auryxia] 210 mg PO DAILY 06/26/18 Furosemide [Lasix] 40 mg PO DAILY 10/27/19 Glipizide 5 mg PO DAILY 10/27/19 Review of Systems - Review of Systems Constitutional: reports: Fever, Weakness Eyes: denies: Recent Change in Vision HENT: denies: Nasal Congestion, Throat Pain Neck: denies: Stiffness, Tenderness Cardiovascular: denies: Chest Pain, Shortness of Breath Respiratory: reports: Cough, Wheezing. denies: SOB Gastrointestinal: denies: Abdominal Pain, Nausea, Vomiting Genitourinary: denies: Dysuria Neurological: denies: Dizziness, Headache Endocrine: denies: Unexplained Weight Loss Physical Exam Vital Sings: Vital Signs Temperature 98.1 F 10/28/19 10:45 Pulse Rate 92 H 10/28/19 10:45 Respiratory Rate 20 10/28/19 10:45 Blood Pressure 126/58 L 10/28/19 10:45 O2 Sat by Pulse Oximetry (%) 95 10/28/19 10:45 Constitutional: Yes: Calm Eyes: Yes: Conjunctiva Clear, EOM Intact HENT: Yes: Atraumatic, Normocephalic Neck: Yes: Supple, Trachea Midline Cardiovascular: Yes: Regular Rate and Rhythm Respiratory: Yes: Rales (right base), Wheezes ...Clubbing: No Gastrointestinal: Yes: Normal Bowel Sounds, Soft. No: Tenderness Edema: No Neurological: Yes: Alert, Oriented Labs: CBC, BMP 10/28/19 06:00 10/28/19 06:00 Imaging - Results Cat Scan: Report Reviewed, Image Reviewed (RLL infiltrate) Assessment/Plan RLL Pneumonia UTI HTN DM Acute on CKD - IV antibiotics - f/u cultures - IVF - monitor urine output, creatinine - O2 to keep SpO2 >90% - inhaled bronchodilators - can defer systemic steroids, anticoagulation - DVT prophylaxis Thank you for this consult Don Mcmullen MD
--- NOTE | 2019-10-28 13:19 | PN ---
Physical Exam: SUBJECTIVE: Patient seen and examined this morning in the ED. Ptn was laying comfortably, in no acute distress, denied any CP, SoB or painful urination. Denied any sick contacts or recent travel. OBJECTIVE: Vital Signs Period Temp Pulse Resp BP Sys/Chan Pulse Ox Last 24 Hr 98.1 F-100.3 F 92-109 18-20 110-164/58-73 94-97 GENERAL: The patient is awake, alert, and fully oriented, in no acute distress. HEAD: Normal with no signs of trauma. EYES: PERRL, extraocular movements intact, sclera anicteric, conjunctiva clear. No ptosis. ENT: Ears normal, nares patent, oropharynx clear without exudates, moist mucous membranes. NECK: Trachea midline, full range of motion, supple. LUNGS: Breath sounds equal, clear to auscultation bilaterally, no wheezes, no crackles, no accessory muscle use. HEART: Regular rate and rhythm, S1, S2 without murmur, rub or gallop. ABDOMEN: Soft, nontender, nondistended, normoactive bowel sounds EXTREMITIES: 2+ pulses, warm, well-perfused, no edema. NEUROLOGICAL: Normal speech, gait not observed. PSYCH: Normal mood, normal affect. SKIN: Warm, dry, normal turgor, no rashes or lesions noted Laboratory Results - last 24 hr CBC, BMP 10/28/19 06:00 10/28/19 06:00 Active Medications Active Medications Generic Name Dose Route Start Last Admin Trade Name Freq PRN Reason Stop Dose Admin Acetaminophen 650 mg 10/27/19 15:38 10/28/19 07:43 Tylenol - PO 650 mg Q6H PRN Administration Fever Or Pain Albuterol/Ipratropium 1 amp 10/28/19 14:00 10/28/19 14:17 Duoneb - NEB 1 amp RTID ROSETTA Administration Amlodipine Besylate 10 mg 10/27/19 17:00 10/28/19 10:40 Norvasc - PO 10 mg DAILY ROSETTA Administration Apixaban 2.5 mg 10/28/19 10:00 Eliquis - PO BID ROSETTA Apixaban 2.5 mg 10/28/19 10:00 10/28/19 10:40 Eliquis - PO 10/28/19 22:01 2.5 mg BID ROSETTA Administration Ascorbic Acid 250 mg 10/28/19 11:00 10/28/19 11:14 Vitamin C - PO 250 mg BID ROSETTA Administration Cholecalciferol 1,000 unit 10/28/19 11:00 10/28/19 12:47 Vitamin D3 - PO 1,000 unit DAILY ROSETTA Administration Piperacillin Sod/Tazobactam 50 mls @ 100 mls/hr 10/28/19 18:00 Sod 2.25 gm/ Dextrose IVPB Q8H-IV ROSETTA Protocol Insulin Aspart 1 vial 10/27/19 07:00 10/28/19 12:00 Novolog Vial Sliding Scale - SQ 4 units ACHS ROSETTA Administration Protocol Zinc Sulfate 220 mg 10/28/19 10:45 10/28/19 11:14 Orazinc - PO 220 mg BID ROSETTA Administration ASSESSMENT/PLAN: 59yo F with PMHx of HTN, DM, CKD, Anemia likely 2/2 CKD presented from home following home thermometer reading of 102F and fluctuating home glucose measurements. Denied any CP, SoB, difficulty urinating, sick contacts or recent travel. Covid Rule Out -CT Chest: Extensive bilateral lower lobe consolidation, right greater than left, concerning for acute pneu monia. Covid-19 pneumonitis cannot be excluded -Not currently exhibiting pulmonary symptoms -Per ID: Start Zosyn -Vit C, D, Zinc -FU: D-Dimer, Ferritin, Transferin, LDH -Covid NEGATIVE Sepsis 2/2 UTI v PNA -Tmax 101.4: Now resolved -WBC: 13.7 -UA positive -CT: See above -Per ID: Start Zosyn -FU blood and urine Cx -Tylenol PRN for fever Anemia -Total Iron: Low; TIBC: Low; B12/Folate WNL. -Likely anemia of chronic disease 2/2 to CKD CHARLES on CKD -Patients Cr on arrival was 2.5 (baseline around 1.7 (06/2019 admission) -Renal US: Chronic scarring w/o evidence of hydronephrosis -Monitor fluid status -Monitor electrolytes DM - BGM ACHS ISS - Holding home meds HTN -Continue Amlodipine 10mg -Hold Lasix and ACEi 2/2 CHARLES FEN - No standing fluids - Monitor BMP - Sodium/diabetic diet PPX - DVT: Eliquis Dispo: Continue following on medical floors Visit type - Emergency Visit Emergency Visit: Yes ED Registration Date: 10/27/19 Care time: The patient presented to the Emergency Department on the above date and was hospitalized for further evaluation of their emergent condition. - New Patient This patient is new to me today: Yes Date on this admission: 10/28/19 - Critical Care Critical Care patient: No - Discharge Referral Referred to [facility] Med P.C[facility] No ATTENDING PHYSICIAN STATEMENT I saw and evaluated the patient. I reviewed the resident's note and discussed the case with the resident. I agree with the resident's findings and plan as documented. SUBJECTIVE: OBJECTIVE: ASSESSMENT AND PLAN:
[2019-10-28] MEDS ORDERED: ALBUTEROL SO4 2.5/IPRATROPIUM 0.5 INH SOL 3 ML VIAL.NEB. NEB ONE (14:16)
[2019-10-28] MEDS: ALBUTEROL SO4 2.5/IPRATROPIUM 0.5 INH SOL 3 ML VIAL.NEB. NEB SCH ×2 (14:17→21:19)
--- NOTE | 2019-10-28 15:15 | CON.ID ---
Consult Consult Specialty:: infectous diseases Referred by:: hospitalist Reason for Consultation:: fever,weakness,abn blood sugars - History of Present Illness Chief Complaint: fever,weakness History of Present Illness: 59yo F with PMHx of HTN, DM, CKD, anemia who presented with a home fever of 102F and fluctuating home glucose measurements. Patient explained that she ate a gyro about 2 days ago and has been feeling "funny" ever since. Last night she felt that she was feeling worse so her daughter measured her temperature at 102F which prompted the daughter to bring in the patient. She had some mild runny nose with clear drainage and was coughing up some phlegm. Patient also explained that her home glucose measurements have been fluctuating from the 50s to the 90s and up to the 200s. With the low glucose she would feel dizzy but she otherwise denied any associated symptoms including no headaches, SOB, palpitations, NVD, constipation, dysuria, polyuria. She did endorse noticing a strong odor of her urine. currently patient still feels weak but better than yesterday - History Source History Provided By: Patient Limitations to Obtaining History: No Limitations - Past Medical History Cardio/Vascular: Yes: HTN ...: No Endocrine: Yes: Diabetes Mellitus - Alcohol/Substance Use Hx Alcohol Use: No - Smoking History Smoking history: Never smoked Home Medications - Allergies Allergies/Adverse Reactions: Allergies Allergy/AdvReac Type Severity Reaction Status Date / Time No Known Allergies Allergy Verified 10/27/19 00:32 - Home Medications Home Medications: Ambulatory Orders Amlodipine Besylate 10 mg PO DAILY 06/26/18 Benazepril HCl 40 mg PO DAILY 06/26/18 Ferric Citrate [Auryxia] 210 mg PO DAILY 06/26/18 Furosemide [Lasix] 40 mg PO DAILY 10/27/19 Glipizide 5 mg PO DAILY 10/27/19 Review of Systems - Review of Systems Constitutional: reports: Fever, Weakness Eyes: reports: No Symptoms HENT: reports: No Symptoms Neck: reports: No Symptoms Cardiovascular: reports: No Symptoms Respiratory: reports: Cough, SOB Gastrointestinal: reports: No Symptoms Musculoskeletal: reports: No Symptoms Integumentary: reports: No Symptoms Neurological: reports: No Symptoms Endocrine: reports: No Symptoms Hematology/Lymphatic: reports: No Symptoms Psychiatric: reports: No Symptoms Physical Exam Vital Signs: Vital Signs Temperature 98.1 F 10/28/19 10:45 Pulse Rate 92 H 10/28/19 10:45 Respiratory Rate 20 10/28/19 10:45 Blood Pressure 126/58 L 10/28/19 10:45 O2 Sat by Pulse Oximetry (%) 95 10/28/19 11:48 Constitutional: Yes: Calm, Mild Distress, Obese Eyes: Yes: Conjunctiva Clear HENT: Yes: Atraumatic, Normocephalic Neck: Yes: Supple, Trachea Midline Cardiovascular: Yes: Regular Rate and Rhythm Respiratory: Yes: On Nasal O2, Poor Air Entry, Other Gastrointestinal: Yes: Normal Bowel Sounds, Soft Musculoskeletal: Yes: WNL Extremities: Yes: WNL Neurological: Yes: Alert, Oriented Psychiatric: Yes: Alert, Oriented Labs: CBC, BMP 10/28/19 06:00 10/28/19 06:00 Imaging - Results Chest X-ray: Report Reviewed, Image Reviewed Cat Scan: Report Reviewed, Image Reviewed Ultrasound: Report Reviewed, Image Reviewed Assessment/Plan this patient with multiple issues coming wth fever and sepsis i think both her urine and lungs contributed to her becomign sick i am going to change abx to zosyn also she has suffered i think ac kidney injury continue current mgmt hydration rest as per the team monitor blood sugars
[2019-10-28] MEDS ORDERED: PIPERACILLIN/TAZOB 2.25 GM 2.25 GM/50 ML BAG IVPB ONE (18:52)
[2019-10-28] MEDS ORDERED: INSULIN (NOVOLOG) ASPART 100 UNITS/ML 10ML VIAL ONE (22:30)
[2019-10-28] MEDS ORDERED: PIPERACILLIN/TAZOBACTAM 2.25 GM VIAL IVPB ONE (22:36)
[2019-10-28] MEDS ORDERED: DEXTROSE 5%-WATER - 50 ML IVPB ONE (22:36)
[2019-10-28] MEDS: PIPERACILLIN/TAZOB 2.25 GM 2.25 GM in DEXTROSE 5%-WATER - 50 ML IVPB SCH (22:45)
[2019-10-29] MEDS ORDERED: PIPERACILLIN/TAZOBACTAM 2.25 GM VIAL IVPB ONE ×2 (00:52→10:23)
[2019-10-29] MEDS ORDERED: DEXTROSE 5%-WATER - 50 ML IVPB ONE ×2 (00:52→10:23)
[2019-10-29] MEDS: PIPERACILLIN/TAZOB 2.25 GM 2.25 GM in DEXTROSE 5%-WATER - 50 ML IVPB SCH ×2 (02:14→10:26)
[2019-10-29 05:04] VITALS: BMI 34.2
[2019-10-29] MEDS: INSULIN SLIDING SCALE (NOVOLOG) 1 VIAL SQ SCH ×4 (06:32→21:15)
[2019-10-29] MEDS ORDERED: PT OWN MED DRAWER 7, Y5N ONE (06:36)
[2019-10-29] MEDS: ALBUTEROL SO4 2.5/IPRATROPIUM 0.5 INH SOL 3 ML VIAL.NEB. NEB SCH ×3 (07:42→20:28)
--- NOTE | 2019-10-29 07:47 | PN ---
Progress Note, Physician History of Present Illness: PULMONARY ALERT,FEELING BETTER ,SOB IMPROVING,LESS COUGH - Current Medication List Current Medications: Active Medications Acetaminophen (Tylenol -) 650 mg PO Q6H PRN PRN Reason: Fever Or Pain Last Admin: 10/28/19 16:13 Dose: 650 mg Documented by: Albuterol/Ipratropium (Duoneb -) 1 amp NEB RTID [facility] Last Admin: 10/29/19 07:42 Dose: 1 amp Documented by: Amlodipine Besylate (Norvasc -) 10 mg PO DAILY [facility] Last Admin: 10/28/19 10:40 Dose: 10 mg Documented by: Apixaban (Eliquis -) 2.5 mg PO BID [facility] Piperacillin Sod/Tazobactam (Sod 2.25 gm/ Dextrose) 50 mls @ 100 mls/hr IVPB Q8H-IV [facility]; Protocol Last Admin: 10/29/19 02:14 Dose: 100 mls/hr Documented by: Insulin Aspart (Novolog Vial Sliding Scale -) 1 vial SQ ACHS [facility]; Protocol Last Admin: 10/29/19 06:32 Dose: 8 units Documented by: - Objective Vital Signs: Vital Signs Temperature 98.1 F 10/29/19 01:00 Pulse Rate 89 10/29/19 01:00 Respiratory Rate 20 10/29/19 01:00 Blood Pressure 132/64 10/29/19 01:00 O2 Sat by Pulse Oximetry (%) 98 10/29/19 01:00 Constitutional: Yes: Well Nourished, Calm Eyes: Yes: WNL HENT: Yes: WNL Neck: Yes: WNL Cardiovascular: Yes: Regular Rate and Rhythm, S1, S2 Respiratory: Yes: Rales (crackless r base) Gastrointestinal: Yes: Normal Bowel Sounds, Soft Extremities: Yes: WNL Edema: No Labs: Laboratory Tests 10/29/19 10/29/19 07:31 07:31 WBC 15.9 H Hgb 7.8 L Hct 24.6 L BUN 56.8 H Creatinine 2.7 H Problem List - Problems (1) CHARLES (acute kidney injury) Code(s): N17.9 - ACUTE KIDNEY FAILURE, UNSPECIFIED (2) Pneumonia Code(s): J18.9 - PNEUMONIA, UNSPECIFIED ORGANISM Qualifiers: Pneumonia type: due to unspecified organism Laterality: unspecified laterality Lung location: unspecified part of lung Qualified Code(s): J18.9 - Pneumonia, unspecified organism Assessment/Plan Assessment/Plan RLL Pneumonia UTI HTN DM Acute on CKD worsening - IV antibiotics - IVF - monitor urine output, creatinine - O2 to keep SpO2 >90% - inhaled bronchodilators - DVT prophylaxis DR PAPPAS
[2019-10-29 08:41] LABS: BASO % 0.1 % (0-2.0); HEMATOCRIT 24.6 % (32.4-45.2); HEMOGLOBIN 7.8 GM/dL (10.7-15.3); LYMPH % 3.2 % (8-40); MCH 28.3 pg (25.7-33.7); MCHC 31.8 g/dl (32.0-36.0); MEAN CELL VOLUME 88.9 fl (80-96); MEAN PLT VOLUME 9.5 fl (7.5-11.1); MONO % 10.2 % (3.8-10.2); NEUT % 86.5 % (42.8-82.8); PLATELET COUNT 255 K/MM3 (134-434); RBC 2.77 M/mm3 (3.60-5.2); RDW 15.5 % (11.6-15.6); WHITE BLOOD COUNT 15.9 K/mm3 (4.0-10.0)
[2019-10-29 09:09] LABS: BILIRUBIN,TOTAL 0.4 mg/dL (0.2-1); BLOOD UREA NITROGEN 56.8 mg/dL (7-18); CALCIUM 8.7 mg/dL (8.5-10.1); CREATININE 2.7 mg/dL (0.55-1.3); POTASSIUM 4.2 mmol/L (3.5-5.1); TOT PROT 7.2 g/dl (6.4-8.2)
[2019-10-29 10:18] LABS: ANISOCYTOSIS 1+; MACROCYTOSIS 0; PLATELET ESTIMATE NORMAL
[2019-10-29] MEDS: amLODIPine BESYLATE 10 MG TABLET (FP) PO SCH (10:26)
[2019-10-29] MEDS: APIXABAN 2.5 MG TABLET PO SCH ×4 (10:26→21:15)
[2019-10-29] MEDS ORDERED: INSULIN (NOVOLOG) ASPART 100 UNITS/ML 10ML VIAL ONE (11:12)
--- NOTE | 2019-10-29 13:01 | PN ---
Progress Note, Physician History of Present Illness: stable better - Current Medication List Current Medications: Active Medications Acetaminophen (Tylenol -) 650 mg PO Q6H PRN PRN Reason: Fever Or Pain Last Admin: 10/28/19 16:13 Dose: 650 mg Documented by: Albuterol/Ipratropium (Duoneb -) 1 amp NEB RTID [facility] Last Admin: 10/29/19 07:42 Dose: 1 amp Documented by: Amlodipine Besylate (Norvasc -) 10 mg PO DAILY [facility] Last Admin: 10/29/19 10:26 Dose: 10 mg Documented by: Apixaban (Eliquis -) 2.5 mg PO BID [facility] Last Admin: 10/29/19 10:26 Dose: 2.5 mg Documented by: Insulin Aspart (Novolog Vial Sliding Scale -) 1 vial SQ [facility]; Protocol Last Admin: 10/29/19 11:13 Dose: 8 units Documented by: Insulin Detemir (Levemir Vial) 12 units SQ [facility] - Objective Vital Signs: Vital Signs Temperature 98.1 F 10/29/19 10:00 Pulse Rate 96 H 10/29/19 10:00 Respiratory Rate 18 10/29/19 10:00 Blood Pressure 118/56 L 10/29/19 10:00 O2 Sat by Pulse Oximetry (%) 96 10/29/19 10:00 Constitutional: Yes: No Distress, Calm Cardiovascular: Yes: S1, S2 Respiratory: Yes: Regular, On Nasal O2 Gastrointestinal: Yes: Normal Bowel Sounds, Soft Musculoskeletal: Yes: WNL Extremities: Yes: WNL Neurological: Yes: Alert, Oriented Psychiatric: Yes: Alert, Oriented Labs: CBC, BMP 10/29/19 07:31 10/29/19 07:31 INR, PTT INR 1.23 (0.83-1.09) H 10/27/19 02:10 Assessment/Plan Problem List - Problems (1) CHARLES (acute kidney injury) Code(s): N17.9 - ACUTE KIDNEY FAILURE, UNSPECIFIED (2) Pneumonia Code(s): J18.9 - PNEUMONIA, UNSPECIFIED ORGANISM Qualifiers: Pneumonia type: due to unspecified organism Laterality: unspecified laterality Lung location: unspecified part of lung Qualified Code(s): J18.9 - Pneumonia, unspecified organism Assessment/Plan Assessment/Plan RLL Pneumonia UTI HTN DM Acute on CKD worsening plan will switch from zosyn to meropenam rest as per the team
--- NOTE | 2019-10-29 13:44 | PN ---
Physical Exam: SUBJECTIVE: Patient seen and examined this morning, in no acute distress, talking in full sentences. Observed clearing mucous OBJECTIVE: Vital Signs Period Temp Pulse Resp BP Sys/Chan Pulse Ox Last 24 Hr 97.9 F-100.3 F 88-99 18-20 118-134/49-90 92-98 GENERAL: The patient is awake, alert, and fully oriented, in no acute distress. HEAD: Normal with no signs of trauma. EYES: PERRL, extraocular movements intact, sclera anicteric, conjunctiva clear. No ptosis. ENT: Ears normal, nares patent, oropharynx clear without exudates, moist mucous membranes. NECK: Trachea midline, full range of motion, supple. LUNGS: Crackles heard in RLL base HEART: Regular rate and rhythm, S1, S2 without murmur, rub or gallop. ABDOMEN: Soft, nontender, nondistended, normoactive bowel sounds EXTREMITIES: 2+ pulses, warm, well-perfused, no edema. NEUROLOGICAL: Normal speech, gait not observed. PSYCH: Normal mood, normal affect. SKIN: Warm, dry, normal turgor, no rashes or lesions noted Laboratory Results - last 24 hr CBC, BMP 10/29/19 07:31 10/29/19 07:31 Active Medications Generic Name Dose Route Start Last Admin Trade Name Freq PRN Reason Stop Dose Admin Acetaminophen 650 mg 10/27/19 15:38 10/28/19 16:13 Tylenol - PO 650 mg Q6H PRN Administration Fever Or Pain Albuterol/Ipratropium 1 amp 10/28/19 14:00 10/29/19 07:42 Duoneb - NEB 1 amp RTID [facility] Administration Amlodipine Besylate 10 mg 10/27/19 17:00 10/29/19 10:26 Norvasc - PO 10 mg DAILY [facility] Administration Apixaban 2.5 mg 10/28/19 10:00 10/29/19 10:26 Eliquis - PO 2.5 mg BID [facility] Administration Meropenem 1 gm/ Dextrose 100 mls @ 0 mls/hr 10/29/19 13:00 IVPB Q12H [facility] As Directed Insulin Aspart 1 vial 10/29/19 09:51 10/29/19 11:13 Novolog Vial Sliding Scale - SQ 8 units ACHS [facility] Administration Protocol Insulin Detemir 12 units 10/29/19 22:00 Levemir Vial SQ HS [facility] ASSESSMENT/PLAN: 59yo F with PMHx of HTN, DM, CKD, Anemia likely 2/2 CKD presented from home following home thermometer reading of 102F and fluctuating home glucose measurements. Denied any CP, SoB, difficulty urinating, sick contacts or recent travel. Covid Rule Out -CT Chest: Extensive bilateral lower lobe consolidation, right greater than left, concerning for acute pneumonia. Covid-19 pneumonitis cannot be excluded -Not currently exhibiting pulmonary symptoms -Per ID: Switch to Meropenem -FU: D-Dimer, Ferritin, Transferin, LDH -DD: 2600 --> 2300 -Ferritin: 300 -->600 -LDH: Stable -Duonebs TID -Covid NEGATIVE --> Repeat COVID Test Sepsis 2/2 UTI v PNA -Tmax 101.4: Now resolved -WBC: 13.7 -UA positive -CT: See above -Per ID: Switch to Meropenem -FU blood and urine Cx -Legionella: Negative -Strep: Negative -UCx: ESBL EColi -Tylenol PRN for fever Anemia -Total Iron: Low; TIBC: Low; B12/Folate WNL. -Likely anemia of chronic disease 2/2 to CKD CHARLES on CKD -Patients Cr on arrival was 2.5 (baseline around 1.7 (06/2019 admission) -Renal US: Chronic scarring w/o evidence of hydronephrosis -Monitor fluid status -Monitor electrolytes DM - BGM ACHS ISS - ISS used past 24 hours (22 units) --> Start Levamir 12 units HTN -Continue Amlodipine 10mg -Hold Lasix and ACEi 2/2 CHARLES FEN - No standing fluids - Monitor BMP - Sodium/diabetic diet PPX - DVT: Eliquis 2.5 Dispo: Continue following on medical floors Visit type - Emergency Visit Emergency Visit: No - New Patient This patient is new to me today: No - Critical Care Critical Care patient: No - Discharge Referral Referred to [facility] Med P.C.: No ATTENDING PHYSICIAN STATEMENT I saw and evaluated the patient. I reviewed the resident's note and discussed the case with the resident. I agree with the resident's findings and plan as documented. SUBJECTIVE: OBJECTIVE: ASSESSMENT AND PLAN:
[2019-10-29] MEDS ORDERED: MEROPENEM 1 GM VIAL (RESTRICTED TO ID) IVPB ONE (16:10)
[2019-10-29] MEDS ORDERED: DEXTROSE 5%-WATER 100 ML IVPB ONE (16:11)
[2019-10-29] MEDS: MEROPENEM 1 GM in DEXTROSE 5%-WATER 100 ML IVPB SCH (16:41)
--- NOTE | 2019-10-29 18:25 | PN ---
Teaching Attending Note Name of Resident: Rafael Grady ATTENDING PHYSICIAN STATEMENT I saw and evaluated the patient. I reviewed the resident's note and discussed the case with the resident. I agree with the resident's findings and plan as documented. SUBJECTIVE: Patient is feeling better with NAD. OBJECTIVE: Vital Signs Temperature 98.2 F 10/29/19 15:00 Pulse Rate 89 10/29/19 15:00 Respiratory Rate 18 10/29/19 15:00 Blood Pressure 111/64 10/29/19 15:00 O2 Sat by Pulse Oximetry (%) 98 10/29/19 15:00 PE:per resident's note CBCD WBC 15.9 K/mm3 (4.0-10.0) H 10/29/19 07:31 RBC 2.77 M/mm3 (3.60-5.2) L 10/29/19 07:31 Hgb 7.8 GM/dL (10.7-15.3) L 10/29/19 07:31 Hct 24.6 % (32.4-45.2) L 10/29/19 07:31 MCV 88.9 fl (80-96) 10/29/19 07:31 MCHC 31.8 g/dl (32.0-36.0) L 10/29/19 07:31 RDW 15.5 % (11.6-15.6) 10/29/19 07:31 Plt Count 255 K/MM3 (134-434) 10/29/19 07:31 MPV 9.5 fl (7.5-11.1) 10/29/19 07:31 CMP Sodium 133 mmol/L (136-145) L 10/29/19 07:31 Potassium 4.2 mmol/L (3.5-5.1) 10/29/19 07:31 Chloride 101 mmol/L (98-107) 10/29/19 07:31 Carbon Dioxide 24 mmol/L (21-32) 10/29/19 07:31 Anion Gap 9 MMOL/L (8-16) 10/29/19 07:31 BUN 56.8 mg/dL (7-18) H 10/29/19 07:31 Creatinine 2.7 mg/dL (0.55-1.3) H 10/29/19 07:31 Random Glucose 327 mg/dL (74-106) H 10/29/19 07:31 Calcium 8.7 mg/dL (8.5-10.1) 10/29/19 07:31 Total Bilirubin 0.4 mg/dL (0.2-1) 10/29/19 07:31 AST 23 U/L (15-37) 10/29/19 07:31 ALT 27 U/L (13-61) 10/29/19 07:31 Alkaline Phosphatase 72 U/L (45-117) 10/29/19 07:31 Total Protein 7.2 g/dl (6.4-8.2) 10/29/19 07:31 Albumin 3.0 g/dl (3.4-5.0) L 10/29/19 07:31 CARDIAC ENZYMES Troponin I < 0.02 ng/ml (0.00-0.05) 10/27/19 02:10 Current Medications Generic Name Dose Route Start Last Admin Trade Name Freq PRN Reason Stop Dose Admin Acetaminophen 650 mg 10/27/19 15:38 10/28/19 16:13 Tylenol - PO 650 mg Q6H PRN Administration Fever Or Pain Albuterol/Ipratropium 1 amp 10/28/19 14:00 10/29/19 13:55 Duoneb - NEB 1 amp RTID [facility] Administration Amlodipine Besylate 10 mg 10/27/19 17:00 10/29/19 10:26 Norvasc - PO 10 mg DAILY [facility] Administration Apixaban 2.5 mg 10/28/19 10:00 10/29/19 10:26 Eliquis - PO 2.5 mg BID [facility] Administration Meropenem 1 gm/ Dextrose 100 mls @ 0 mls/hr 10/29/19 13:00 10/29/19 16:41 IVPB 100 mls/hr Q12H [facility] Administration As Directed Insulin Aspart 1 vial 10/29/19 09:51 10/29/19 17:00 Novolog Vial Sliding Scale - SQ 10 units ACHS [facility] Administration Protocol Insulin Detemir 12 units 10/29/19 22:00 Levemir Vial SQ HS [facility] Home Medications Medication Instructions Recorded Amlodipine Besylate 10 mg PO DAILY 06/26/18 Benazepril HCl 40 mg PO DAILY 06/26/18 Ferric Citrate [Auryxia] 210 mg PO DAILY 06/26/18 Furosemide [Lasix] 40 mg PO DAILY 10/27/19 Glipizide 5 mg PO DAILY 10/27/19 Microbiology 10/27/19 04:00 Urine - Urine Clean Catch Urine Culture - Final Escherichia Coli Esbl Education Spec 10/27/19 02:10 Blood - Peripheral Venous Blood Culture - Preliminary NO GROWTH OBTAINED AFTER 48 HOURS, INCUBATION TO CONTINUE FOR 3 DAYS. 10/27/19 02:10 Blood - Peripheral Venous Blood Culture - Preliminary NO GROWTH OBTAINED AFTER 48 HOURS, INCUBATION TO CONTINUE FOR 3 DAYS. 10/27/19 20:00 Urine For Antigen Detection Legionella Antigen - Final 10/27/19 20:00 Urine For Antigen Detection Streptococcus pneumoniae Antigen (M - Final ASSESSMENT AND PLAN: This patient is a 59yof with Pmhx of HTN, DM, CKD, anemia who presented with shortness of breath, fever of 102F at home with fluctuating blood sugar at home. 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 covid 19 cannot be excluded, continue to monitor dAILY MARKERS for covid, will continue Ac, will monitor hemoglobin #Anemia: possible due to her CKd , folic acid and B12 normal #CHARLES on CKD: patients Cr on arrival was 2.5 (baseline around 1.8), adjust meds according to creatinine clearance which is around 25 #T2DM: continue with BGMs ACHS ISS, will start on levemir 12 units in am , will continue to monitor #HTN: continue Amlodipine home meds #Hypomag: replete #Covid is negative but is high suspecious for covid , follow markers DVT Px: eliquis Dispo: medSurg
[2019-10-29] MEDS ORDERED: INSULIN (LEVEMIR) 100 UNITS/ML UNITS SQ SCH (22:00)
[2019-10-30] MEDS ORDERED: DEXTROSE 5%-WATER 100 ML IVPB ONE ×2 (01:04→12:04)
[2019-10-30] MEDS ORDERED: MEROPENEM 1 GM VIAL (RESTRICTED TO ID) IVPB ONE ×2 (01:04→12:04)
[2019-10-30] MEDS: MEROPENEM 1 GM in DEXTROSE 5%-WATER 100 ML IVPB SCH ×2 (01:19→12:11)
[2019-10-30] MEDS: INSULIN SLIDING SCALE (NOVOLOG) 1 VIAL SQ SCH ×4 (06:29→21:23)
[2019-10-30] MEDS ORDERED: glipiZIDE-XL 5 MG TAB.ER.24 PO SCH (07:00)
[2019-10-30] MEDS: ALBUTEROL SO4 2.5/IPRATROPIUM 0.5 INH SOL 3 ML VIAL.NEB. NEB SCH ×3 (07:50→20:14)
[2019-10-30 08:26] LABS: BASO % 0.3 % (0-2.0); EOS % 1.1 % (0-4.5); HEMATOCRIT 23.6 % (32.4-45.2); HEMOGLOBIN 7.8 GM/dL (10.7-15.3); LYMPH % 7.2 % (8-40); MCH 28.9 pg (25.7-33.7); MEAN CELL VOLUME 87.6 fl (80-96); MEAN PLT VOLUME 9.2 fl (7.5-11.1); MONO % 15.8 % (3.8-10.2); NEUT % 75.6 % (42.8-82.8); PLATELET COUNT 274 K/MM3 (134-434); RBC 2.69 M/mm3 (3.60-5.2); RDW 15.1 % (11.6-15.6); WHITE BLOOD COUNT 10.4 K/mm3 (4.0-10.0)
[2019-10-30 08:45] LABS: ALBUMIN 2.9 g/dl (3.4-5.0); BILIRUBIN,TOTAL 0.5 mg/dL (0.2-1); BLOOD UREA NITROGEN 60.6 mg/dL (7-18); CALCIUM 8.6 mg/dL (8.5-10.1); CREATININE 2.6 mg/dL (0.55-1.3); TOT PROT 6.9 g/dl (6.4-8.2)
--- NOTE | 2019-10-30 09:17 | PN ---
Progress Note, Physician History of Present Illness: stable no new issues - Current Medication List Current Medications: Active Medications Acetaminophen (Tylenol -) 650 mg PO Q6H PRN PRN Reason: Fever Or Pain Last Admin: 10/28/19 16:13 Dose: 650 mg Documented by: Albuterol/Ipratropium (Duoneb -) 1 amp NEB RTID [facility] Last Admin: 10/30/19 07:50 Dose: 1 amp Documented by: Amlodipine Besylate (Norvasc -) 10 mg PO DAILY [facility] Last Admin: 10/29/19 10:26 Dose: 10 mg Documented by: Apixaban (Eliquis -) 2.5 mg PO BID [facility] Last Admin: 10/29/19 21:15 Dose: 2.5 mg Documented by: Meropenem 1 gm/ Dextrose 100 mls @ 0 mls/hr IVPB Q12H [facility] Last Admin: 10/30/19 01:19 Dose: 100 mls/hr Documented by: Insulin Aspart (Novolog Vial Sliding Scale -) 1 vial SQ [facility]; Protocol Last Admin: 10/30/19 06:29 Dose: Not Given Documented by: Insulin Detemir (Levemir Vial) 12 units SQ HS [facility] Last Admin: 10/29/19 21:15 Dose: 12 units Documented by: - Objective Vital Signs: Vital Signs Temperature 98.7 F 10/30/19 06:00 Pulse Rate 87 10/30/19 06:00 Respiratory Rate 18 10/30/19 06:00 Blood Pressure 134/66 10/30/19 06:00 O2 Sat by Pulse Oximetry (%) 97 10/30/19 06:00 Constitutional: Yes: No Distress, Calm Cardiovascular: Yes: S1, S2 Respiratory: Yes: Regular, CTA Bilaterally Gastrointestinal: Yes: Normal Bowel Sounds, Soft Musculoskeletal: Yes: WNL Extremities: Yes: WNL Neurological: Yes: Alert, Oriented Psychiatric: Yes: Alert, Oriented Labs: CBC, BMP 10/30/19 07:57 10/30/19 07:57 INR, PTT INR 1.23 (0.83-1.09) H 10/27/19 02:10 Assessment/Plan Problem List - Problems (1) CHARLES (acute kidney injury) Code(s): N17.9 - ACUTE KIDNEY FAILURE, UNSPECIFIED (2) Pneumonia Code(s): J18.9 - PNEUMONIA, UNSPECIFIED ORGANISM Qualifiers: Pneumonia type: due to unspecified organism Laterality: unspecified laterality Lung location: unspecified part of lung Qualified Code(s): J18.9 - Pneumonia, unspecified organism Assessment/Plan Assessment/Plan RLL Pneumonia UTI HTN DM Acute on CKD worsening plan meropenam rest as per the team
[2019-10-30 10:20] LABS: ANISOCYTOSIS 1+; MACROCYTOSIS 0; PLATELET ESTIMATE NORMAL
--- NOTE | 2019-10-30 11:01 | PN ---
Progress Note (short form) - Note Progress Note: PULMONARY Feels overall improved. No fevers recorded. Vital Signs Period Temp Pulse Resp BP Sys/Chan Pulse Ox Last 24 Hr 98.2 F-99.1 F 87-99 18-20 111-136/53-75 93-98 Gen: NAD at rest Heart: RRR Lung: right base rales Abd: soft, nontender Ext: no edema CBC, BMP 10/30/19 07:57 10/30/19 07:57 Active Medications Acetaminophen (Tylenol -) 650 mg PO Q6H PRN PRN Reason: Fever Or Pain Last Admin: 10/28/19 16:13 Dose: 650 mg Documented by: Albuterol/Ipratropium (Duoneb -) 1 amp NEB RTID [facility] Last Admin: 10/30/19 07:50 Dose: 1 amp Documented by: Amlodipine Besylate (Norvasc -) 10 mg PO DAILY [facility] Last Admin: 10/29/19 10:26 Dose: 10 mg Documented by: Apixaban (Eliquis -) 2.5 mg PO BID [facility] Last Admin: 10/29/19 21:15 Dose: 2.5 mg Documented by: Meropenem 1 gm/ Dextrose 100 mls @ 0 mls/hr IVPB Q12H [facility] Last Admin: 10/30/19 01:19 Dose: 100 mls/hr Documented by: Insulin Aspart (Novolog Vial Sliding Scale -) 1 vial SQ [facility]; Protocol Last Admin: 10/30/19 06:29 Dose: Not Given Documented by: Insulin Detemir (Levemir Vial) 12 units SQ HS [facility] Last Admin: 10/29/19 21:15 Dose: 12 units Documented by: A/P RLL Pneumonia UTI HTN DM Acute on CKD - continue antibiotics - IVF - monitor urine output, creatinine - O2 to keep SpO2 >90% - inhaled bronchodilators - can d/c anticoagulation, low suspicion for COVID19 - DVT prophylaxis
[2019-10-30] MEDS: APIXABAN 2.5 MG TABLET PO SCH ×2 (12:11→21:25)
[2019-10-30] MEDS: amLODIPine BESYLATE 10 MG TABLET (FP) PO SCH (12:11)
--- NOTE | 2019-10-30 15:27 | PN ---
Physical Exam: SUBJECTIVE: Patient seen and examined this morning, while eating. No acute distress, no difficulty breathing, no chest pain. patient endorses sadness at being put on isolation again 2/2 growing ESBL. OBJECTIVE: Vital Signs Period Temp Pulse Resp BP Sys/Chan Pulse Ox Last 24 Hr 98.3 F-99.1 F 87-100 18-20 124-136/53-75 90-97 GENERAL: The patient is awake, alert, and fully oriented, in no acute distress. HEAD: Normal with no signs of trauma. EYES: PERRL, extraocular movements intact, sclera anicteric, conjunctiva clear. No ptosis. ENT: Ears normal, nares patent, oropharynx clear without exudates, moist mucous membranes. NECK: Trachea midline, full range of motion, supple. LUNGS: CTABL HEART: Regular rate and rhythm, S1, S2 without murmur, rub or gallop. ABDOMEN: Soft, nontender, nondistended, normoactive bowel sounds EXTREMITIES: 2+ pulses, warm, well-perfused, no edema. NEUROLOGICAL: Normal speech, gait not observed. PSYCH: Normal mood, normal affect. SKIN: Warm, dry, normal turgor, no rashes or lesions noted Laboratory Results - last 24 hr CBC, BMP 10/30/19 07:57 10/30/19 07:57 Active Medications Generic Name Dose Route Start Last Admin Trade Name Freq PRN Reason Stop Dose Admin Acetaminophen 650 mg 10/27/19 15:38 10/28/19 16:13 Tylenol - PO 650 mg Q6H PRN Administration Fever Or Pain Albuterol/Ipratropium 1 amp 10/28/19 14:00 10/30/19 14:19 Duoneb - NEB 1 amp RTID [facility] Administration Amlodipine Besylate 10 mg 10/27/19 17:00 10/30/19 12:11 Norvasc - PO 10 mg DAILY [facility] Administration Apixaban 2.5 mg 10/28/19 10:00 10/30/19 12:11 Eliquis - PO 2.5 mg BID [facility] Administration Meropenem 1 gm/ Dextrose 100 mls @ 0 mls/hr 10/29/19 13:00 10/30/19 12:11 IVPB 100 mls/hr Q12H [facility] Administration As Directed Insulin Aspart 1 vial 10/29/19 09:51 10/30/19 12:39 Novolog Vial Sliding Scale - SQ 4 units ACHS [facility] Administration Protocol Insulin Detemir 12 units 10/29/19 22:00 10/29/19 21:15 Levemir Vial SQ 12 units HS [facility] Administration ASSESSMENT/PLAN: 59yo F with PMHx of HTN, DM, CKD, Anemia likely 2/2 CKD presented from home following home thermometer reading of 102F and fluctuating home glucose measurements. Denied any CP, SoB, difficulty urinating, sick contacts or recent travel. Covid Rule Out: LOW LIKELYHOOD OF COVID -CT Chest: Extensive bilateral lower lobe consolidation, right greater than left, concerning for acute pneumonia. Covid-19 pneumonitis cannot be excluded -Per Pulm: Low likelyhood of covid, can dc AC -Per ID: Switch to Meropenem -FU: D-Dimer, Ferritin, Transferin, LDH -DD: 2600 --> 2300 -->5600 -Ferritin: 300 -->600 -->522 -LDH: Stable -Duonebs TID -Covid NEGATIVE --> Repeat COVID Test Sepsis 2/2 UTI v PNA -Tmax 101.4: Now resolved -WBC: 13.7 -UA positive -CT: See above -Per ID: Switch to Meropenem -FU blood and urine Cx -Legionella: Negative -Strep: Negative -UCx: ESBL EColi -Sputum Cx: Negative -Tylenol PRN for fever Anemia -Total Iron: Low; TIBC: Low; B12/Folate WNL. -Likely anemia of chronic disease 2/2 to CKD CHARLES on CKD -Patients Cr on arrival was 2.5 (baseline around 1.7 (06/2019 admission) -Renal US: Chronic scarring w/o evidence of hydronephrosis -Monitor fluid status -Monitor electrolytes DM - BGM ACHS ISS - Continue Levamir 12 units HTN -Continue Amlodipine 10mg -Hold Lasix and ACEi 2/2 CHARLES FEN - No standing fluids - Monitor BMP - Sodium/diabetic diet PPX - DVT: Eliquis 2.5 Dispo: Continue following on medical floors Visit type - Emergency Visit Emergency Visit: No - New Patient This patient is new to me today: No - Critical Care Critical Care patient: No - Discharge Referral Referred to [facility] Med P.C.: No ATTENDING PHYSICIAN STATEMENT I saw and evaluated the patient. I reviewed the resident's note and discussed the case with the resident. I agree with the resident's findings and plan as documented. SUBJECTIVE: OBJECTIVE: ASSESSMENT AND PLAN:
--- NOTE | 2019-10-30 17:03 | PN ---
Teaching Attending Note Name of Resident: Rafael Grady ATTENDING PHYSICIAN STATEMENT I saw and evaluated the patient. I reviewed the resident's note and discussed the case with the resident. I agree with the resident's findings and plan as documented. SUBJECTIVE: Patient is feeling better with NAD OBJECTIVE: Vital Signs Temperature 98.6 F 10/30/19 15:26 Pulse Rate 101 H 10/30/19 15:26 Respiratory Rate 20 10/30/19 15:26 Blood Pressure 134/74 10/30/19 15:26 O2 Sat by Pulse Oximetry (%) 99 10/30/19 15:26 PE:per resident's note CBCD WBC 10.4 K/mm3 (4.0-10.0) H 10/30/19 07:57 RBC 2.69 M/mm3 (3.60-5.2) L 10/30/19 07:57 Hgb 7.8 GM/dL (10.7-15.3) L 10/30/19 07:57 Hct 23.6 % (32.4-45.2) L 10/30/19 07:57 MCV 87.6 fl (80-96) 10/30/19 07:57 MCHC 33.0 g/dl (32.0-36.0) 10/30/19 07:57 RDW 15.1 % (11.6-15.6) 10/30/19 07:57 Plt Count 274 K/MM3 (134-434) 10/30/19 07:57 MPV 9.2 fl (7.5-11.1) 10/30/19 07:57 CMP Sodium 138 mmol/L (136-145) 10/30/19 07:57 Potassium 4.0 mmol/L (3.5-5.1) 10/30/19 07:57 Chloride 105 mmol/L (98-107) 10/30/19 07:57 Carbon Dioxide 25 mmol/L (21-32) 10/30/19 07:57 Anion Gap 8 MMOL/L (8-16) 10/30/19 07:57 BUN 60.6 mg/dL (7-18) H 10/30/19 07:57 Creatinine 2.6 mg/dL (0.55-1.3) H 10/30/19 07:57 Random Glucose 89 mg/dL (74-106) 10/30/19 07:57 Calcium 8.6 mg/dL (8.5-10.1) 10/30/19 07:57 Total Bilirubin 0.5 mg/dL (0.2-1) 10/30/19 07:57 AST 23 U/L (15-37) 10/30/19 07:57 ALT 28 U/L (13-61) 10/30/19 07:57 Alkaline Phosphatase 64 U/L (45-117) 10/30/19 07:57 Total Protein 6.9 g/dl (6.4-8.2) 10/30/19 07:57 Albumin 2.9 g/dl (3.4-5.0) L 10/30/19 07:57 CARDIAC ENZYMES Troponin I < 0.02 ng/ml (0.00-0.05) 10/27/19 02:10 Current Medications Generic Name Dose Route Start Last Admin Trade Name Freq PRN Reason Stop Dose Admin Acetaminophen 650 mg 10/27/19 15:38 10/28/19 16:13 Tylenol - PO 650 mg Q6H PRN Administration Fever Or Pain Albuterol/Ipratropium 1 amp 10/28/19 14:00 10/30/19 14:19 Duoneb - NEB 1 amp RTID ROSETTA Administration Amlodipine Besylate 10 mg 10/27/19 17:00 10/30/19 12:11 Norvasc - PO 10 mg DAILY ROS[facility] Administration Apixaban 2.5 mg 10/28/19 10:00 10/30/19 12:11 Eliquis - PO 2.5 mg BID ROSETTA Administration Meropenem 1 gm/ Dextrose 100 mls @ 0 mls/hr 10/29/19 13:00 10/30/19 12:11 IVPB 100 mls/hr Q12H ROSETTA Administration As Directed Insulin Aspart 1 vial 10/29/19 09:51 10/30/19 12:39 Novolog Vial Sliding Scale - SQ 4 units ACHS ROSETTA Administration Protocol Insulin Detemir 12 units 10/29/19 22:00 10/29/19 21:15 Levemir Vial SQ 12 units HS ROSETTA Administration Microbiology 10/28/19 12:40 Sputum - Expectorated Gram Stain - Final 10/28/19 12:40 Sputum - Expectorated Sputum Culture - Preliminary NORMAL RESPIRATORY SHANE 10/27/19 02:10 Blood - Peripheral Venous Blood Culture - Preliminary NO GROWTH OBTAINED AFTER 72 HOURS, INCUBATION TO CONTINUE FOR 2 DAYS. 10/27/19 02:10 Blood - Peripheral Venous Blood Culture - Preliminary NO GROWTH OBTAINED AFTER 72 HOURS, INCUBATION TO CONTINUE FOR 2 DAYS. 10/27/19 04:00 Urine - Urine Clean Catch Urine Culture - Final Escherichia Coli Esbl Viscosity Inspector 10/27/19 20:00 Urine For Antigen Detection Legionella Antigen - Final 10/27/19 20:00 Urine For Antigen Detection Streptococcus pneumoniae Antigen (M - Final ASSESSMENT AND PLAN: This patient is a 59yof with Pmhx of HTN, DM, CKD, anemia who presented with shortness of breath, fever of 102F at home with fluctuating blood sugar at home. 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 covid 19 cannot be excluded, continue to monitor dAILY MARKERS for covid, will continue Ac, will monitor hemoglobin #Anemia: possible due to her CKd , folic acid and B12 normal #CHARLES on CKD: patients Cr on arrival was 2.5 (baseline around 1.8), adjust meds according to creatinine clearance which is around 25 #T2DM: continue with BGMs ACHS ISS, levemir 8units bid , will continue to monitor #HTN: continue Amlodipine home meds #Hypomag: replete #Covid is negative but is high suspecious for covid , continue to follow markers DVT Px: eliquis Dispo: medSurg
[2019-10-30] MEDS ORDERED: INSULIN (LEVEMIR) 100 UNITS/ML UNITS SQ SCH (17:05)
[2019-10-30] MEDS: INSULIN (LEVEMIR) 100 UNITS/ML UNITS SQ SCH (21:24)
[2019-10-31] MEDS ORDERED: MEROPENEM 1 GM VIAL (RESTRICTED TO ID) IVPB ONE ×3 (02:16→23:43)
[2019-10-31] MEDS ORDERED: DEXTROSE 5%-WATER 100 ML IVPB ONE ×3 (02:16→23:43)
[2019-10-31] MEDS: MEROPENEM 1 GM in DEXTROSE 5%-WATER 100 ML IVPB SCH ×2 (02:20→17:08)
[2019-10-31] MEDS: INSULIN (LEVEMIR) 100 UNITS/ML UNITS SQ SCH ×2 (05:59→22:16)
[2019-10-31] MEDS: INSULIN SLIDING SCALE (NOVOLOG) 1 VIAL SQ SCH ×4 (06:19→22:18)
[2019-10-31] MEDS: ALBUTEROL SO4 2.5/IPRATROPIUM 0.5 INH SOL 3 ML VIAL.NEB. NEB SCH ×3 (08:05→20:40)
[2019-10-31 08:15] LABS: BASO % 0.5 % (0-2.0); EOS % 2.2 % (0-4.5); HEMATOCRIT 22.3 % (32.4-45.2); HEMOGLOBIN 7.4 GM/dL (10.7-15.3); LYMPH % 13.7 % (8-40); MCH 29.3 pg (25.7-33.7); MCHC 33.1 g/dl (32.0-36.0); MEAN CELL VOLUME 88.6 fl (80-96); MEAN PLT VOLUME 9.3 fl (7.5-11.1); MONO % 18.9 % (3.8-10.2); NEUT % 64.7 % (42.8-82.8); PLATELET COUNT 279 K/MM3 (134-434); RBC 2.52 M/mm3 (3.60-5.2); RDW 15.6 % (11.6-15.6); WHITE BLOOD COUNT 8.2 K/mm3 (4.0-10.0)
[2019-10-31 08:28] LABS: ALBUMIN 2.8 g/dl (3.4-5.0); BILIRUBIN,TOTAL 0.5 mg/dL (0.2-1); BLOOD UREA NITROGEN 63.9 mg/dL (7-18); CALCIUM 8.6 mg/dL (8.5-10.1); CREATININE 2.6 mg/dL (0.55-1.3); POTASSIUM 4.5 mmol/L (3.5-5.1); TOT PROT 6.5 g/dl (6.4-8.2)
[2019-10-31 10:25] LABS: ANISOCYTOSIS 2+; MACROCYTOSIS 0; PLATELET ESTIMATE NORMAL
[2019-10-31] MEDS: amLODIPine BESYLATE 10 MG TABLET (FP) PO SCH (11:38)
[2019-10-31] MEDS: APIXABAN 2.5 MG TABLET PO SCH ×2 (11:39→22:12)
--- NOTE | 2019-10-31 11:58 | PN ---
Progress Note, Physician History of Present Illness: patient stable no new issues - Current Medication List Current Medications: Active Medications Acetaminophen (Tylenol -) 650 mg PO Q6H PRN PRN Reason: Fever Or Pain Last Admin: 10/28/19 16:13 Dose: 650 mg Documented by: Albuterol/Ipratropium (Duoneb -) 1 amp NEB RTID [facility] Last Admin: 10/31/19 08:05 Dose: 1 amp Documented by: Amlodipine Besylate (Norvasc -) 10 mg PO DAILY [facility] Last Admin: 10/31/19 11:38 Dose: 10 mg Documented by: Apixaban (Eliquis -) 2.5 mg PO BID [facility] Last Admin: 10/31/19 11:39 Dose: 2.5 mg Documented by: Meropenem 1 gm/ Dextrose 100 mls @ 0 mls/hr IVPB Q12H [facility] Last Admin: 10/31/19 02:20 Dose: 100 mls/hr Documented by: Insulin Aspart (Novolog Vial Sliding Scale -) 1 vial SQ ACHS [facility]; Protocol Last Admin: 10/31/19 11:39 Dose: 2 units Documented by: Insulin Detemir (Levemir Vial) 8 units SQ BID@0700,2200 [facility] Last Admin: 10/31/19 05:59 Dose: 8 units Documented by: - Objective Vital Signs: Vital Signs Temperature 98.7 F 10/31/19 11:43 Pulse Rate 97 H 10/31/19 11:43 Respiratory Rate 20 10/31/19 11:43 Blood Pressure 133/65 10/31/19 11:43 O2 Sat by Pulse Oximetry (%) 98 10/31/19 11:43 Constitutional: Yes: No Distress, Calm Cardiovascular: Yes: S1, S2 Respiratory: Yes: Regular, CTA Bilaterally Gastrointestinal: Yes: Normal Bowel Sounds, Soft Musculoskeletal: Yes: WNL Extremities: Yes: WNL Neurological: Yes: Alert, Oriented Psychiatric: Yes: Alert, Oriented Labs: CBC, BMP 10/31/19 06:40 10/31/19 06:40 INR, PTT INR 1.23 (0.83-1.09) H 10/27/19 02:10 Assessment/Plan Problem List - Problems (1) CHARLES (acute kidney injury) Code(s): N17.9 - ACUTE KIDNEY FAILURE, UNSPECIFIED (2) Pneumonia Code(s): J18.9 - PNEUMONIA, UNSPECIFIED ORGANISM Qualifiers: Pneumonia type: due to unspecified organism Laterality: unspecified laterality Lung location: unspecified part of lung Qualified Code(s): J18.9 - Pneumonia, unspecified organism Assessment/Plan Assessment/Plan RLL Pneumonia UTI HTN DM Acute on CKD worsening plan patient can get a picc line can be changed to ertapenam once a day on discharge
--- NOTE | 2019-10-31 12:06 | PN ---
Progress Note (short form) - Note Progress Note: PULMONARY Feels overall improved. No fevers recorded. VSS/AFEBRILE Gen: NAD at rest Heart: RRR Lung: right base rales Abd: soft, nontender Ext: no edema LABS/MEDS/NOTES/IMAGES REVIEWED A/P RLL Pneumonia UTI HTN DM Acute on CKD - continue antibiotics - IVF - monitor urine output, creatinine - O2 to keep SpO2 >90% - inhaled bronchodilators - can d/c anticoagulation, low suspicion for COVID19 - DVT prophylaxis Woody REARDON MD
--- NOTE | 2019-10-31 14:14 | PN ---
Physical Exam: SUBJECTIVE: Patient seen and examined OBJECTIVE: Vital Signs Period Temp Pulse Resp BP Sys/Chan Pulse Ox Last 24 Hr 98.3 F-98.8 F 90-101 20-20 121-134/54-74 98-100 GENERAL: The patient is awake, alert, and fully oriented, in no acute distress. HEAD: Normal with no signs of trauma. EYES: PERRL, extraocular movements intact, sclera anicteric, conjunctiva clear. No ptosis. ENT: Ears normal, nares patent, oropharynx clear without exudates, moist mucous membranes. NECK: Trachea midline, full range of motion, supple. LUNGS: CTABL HEART: Regular rate and rhythm, S1, S2 without murmur, rub or gallop. ABDOMEN: Soft, nontender, nondistended, normoactive bowel sounds EXTREMITIES: 2+ pulses, warm, well-perfused, no edema. NEUROLOGICAL: Normal speech, gait not observed. PSYCH: Normal mood, normal affect. SKIN: Warm, dry, normal turgor, no rashes or lesions noted Laboratory Results - last 24 hr CBC, BMP 10/31/19 06:40 10/31/19 06:40 Active Medications Generic Name Dose Route Start Last Admin Trade Name Freq PRN Reason Stop Dose Admin Acetaminophen 650 mg 10/27/19 15:38 10/28/19 16:13 Tylenol - PO 650 mg Q6H PRN Administration Fever Or Pain Albuterol/Ipratropium 1 amp 10/28/19 14:00 10/31/19 08:05 Duoneb - NEB 1 amp RTID ROSETTA Administration Amlodipine Besylate 10 mg 10/27/19 17:00 10/31/19 11:38 Norvasc - PO 10 mg DAILY [facility] Administration Apixaban 2.5 mg 10/28/19 10:00 10/31/19 11:39 Eliquis - PO 2.5 mg BID ROSETTA Administration Meropenem 1 gm/ Dextrose 100 mls @ 0 mls/hr 10/29/19 13:00 10/31/19 02:20 IVPB 100 mls/hr Q12H ROSETTA Administration As Directed Insulin Aspart 1 vial 10/29/19 09:51 10/31/19 11:39 Novolog Vial Sliding Scale - SQ 2 units ACHS [facility]ET[facility] Administration Protocol Insulin Detemir 8 units 10/30/19 22:00 10/31/19 05:59 Levemir Vial SQ 8 units BID@0700,2200 [facility] Administration ASSESSMENT/PLAN: 59yo F with PMHx of HTN, DM, CKD, Anemia likely 2/2 CKD presented from home following home thermometer reading of 102F and fluctuating home glucose measurements. Denied any CP, SoB, difficulty urinating, sick contacts or recent travel. Sepsis 2/2 UTI v PNA -Tmax 101.4: Now resolved; Currently Afebrile -WBC: 13.7 -->8.2 -Per ID: Switch to Meropenem -Blood and urine Cx -Legionella: Negative -Strep: Negative -UCx: ESBL EColi -Sputum Cx: Negative -Tylenol PRN for fever -PICC Line: Planned for 10/31/2019 per ID recs w/ Ertapenem. Hypoxia on Exertion -Pre and Post per Respiratory: Desatted to 85 -Respiratory recommends home oxygen -Will repeat pre/post tomorrow Covid Rule Out: LOW LIKELYHOOD OF COVID -CT Chest: Extensive bilateral lower lobe consolidation, right greater than left, concerning for acute pneumonia. Covid-19 pneumonitis cannot be excluded -Per Pulm: Low likelyhood of covid, can dc AC -Per ID: Switch to Meropenem -FU: D-Dimer, Ferritin, Transferin, LDH -DD: 2600 --> 2300 -->5600 -Ferritin: 300 -->600 -->522 -LDH: Stable -Duonebs TID -Covid NEGATIVE --> Repeat COVID Test Denied by patient. Anemia -Total Iron: Low; TIBC: Low; B12/Folate WNL. -Likely anemia of chronic disease 2/2 to CKD -Started Ferous Sulfate 325 BID, will monitor Hbg -Started Colace 2/2 Iron effects. CHARLES on CKD -Patients Cr on arrival was 2.5 (baseline around 1.7 (06/2019 admission) -Renal US: Chronic scarring w/o evidence of hydronephrosis -Monitor fluid status -Monitor electrolytes DM - BGM ACHS ISS - Insulin Detemir 8 & 8 morning and night. HTN -Continue Amlodipine 10mg -Hold Lasix and ACEi 2/2 CHARLES FEN - No standing fluids - Monitor BMP - Sodium/diabetic diet PPX - DVT: Eliquis 2.5 Dispo: Continue following on medical floors Visit type - Emergency Visit Emergency Visit: No - New Patient This patient is new to me today: No - Critical Care Critical Care patient: No - Discharge Referral Referred to [facility] Med P.C.: No ATTENDING PHYSICIAN STATEMENT I saw and evaluated the patient. I reviewed the resident's note and discussed the case with the resident. I agree with the resident's findings and plan as documented. SUBJECTIVE: OBJECTIVE: ASSESSMENT AND PLAN:
--- NOTE | 2019-10-31 17:10 | PN ---
Teaching Attending Note Name of Resident: Rafael Grady ATTENDING PHYSICIAN STATEMENT I saw and evaluated the patient. I reviewed the resident's note and discussed the case with the resident. I agree with the resident's findings and plan as documented. SUBJECTIVE: Patient is comfortable with NAD OBJECTIVE: Vital Signs Temperature 98.7 F 10/31/19 15:20 Pulse Rate 108 H 10/31/19 15:20 Respiratory Rate 20 10/31/19 15:20 Blood Pressure 137/73 10/31/19 15:20 O2 Sat by Pulse Oximetry (%) 97 10/31/19 15:20 PE:per resident's note CBCD WBC 8.2 K/mm3 (4.0-10.0) 10/31/19 06:40 RBC 2.52 M/mm3 (3.60-5.2) L 10/31/19 06:40 Hgb 7.4 GM/dL (10.7-15.3) L 10/31/19 06:40 Hct 22.3 % (32.4-45.2) L 10/31/19 06:40 MCV 88.6 fl (80-96) 10/31/19 06:40 MCHC 33.1 g/dl (32.0-36.0) 10/31/19 06:40 RDW 15.6 % (11.6-15.6) 10/31/19 06:40 Plt Count 279 K/MM3 (134-434) 10/31/19 06:40 MPV 9.3 fl (7.5-11.1) 10/31/19 06:40 CMP Sodium 137 mmol/L (136-145) 10/31/19 06:40 Potassium 4.5 mmol/L (3.5-5.1) 10/31/19 06:40 Chloride 103 mmol/L (98-107) 10/31/19 06:40 Carbon Dioxide 24 mmol/L (21-32) 10/31/19 06:40 Anion Gap 11 MMOL/L (8-16) 10/31/19 06:40 BUN 63.9 mg/dL (7-18) H 10/31/19 06:40 Creatinine 2.6 mg/dL (0.55-1.3) H 10/31/19 06:40 Random Glucose 86 mg/dL (74-106) 10/31/19 06:40 Calcium 8.6 mg/dL (8.5-10.1) 10/31/19 06:40 Total Bilirubin 0.5 mg/dL (0.2-1) 10/31/19 06:40 AST 21 U/L (15-37) 10/31/19 06:40 ALT 26 U/L (13-61) 10/31/19 06:40 Alkaline Phosphatase 60 U/L (45-117) 10/31/19 06:40 Total Protein 6.5 g/dl (6.4-8.2) 10/31/19 06:40 Albumin 2.8 g/dl (3.4-5.0) L 10/31/19 06:40 CARDIAC ENZYMES Troponin I < 0.02 ng/ml (0.00-0.05) 10/27/19 02:10 Current Medications Generic Name Dose Route Start Last Admin Trade Name Freq PRN Reason Stop Dose Admin Acetaminophen 650 mg 10/27/19 15:38 10/28/19 16:13 Tylenol - PO 650 mg Q6H PRN Administration Fever Or Pain Albuterol/Ipratropium 1 amp 10/28/19 14:00 10/31/19 13:53 Duoneb - NEB 1 amp RTID ROSETTA Administration Amlodipine Besylate 10 mg 10/27/19 17:00 10/31/19 11:38 Norvasc - PO 10 mg DAILY [facility] Administration Apixaban 2.5 mg 10/28/19 10:00 10/31/19 11:39 Eliquis - PO 2.5 mg BID ROSETTA Administration Docusate Sodium 100 mg 10/31/19 22:00 Colace - PO BID ROSETTA Ferrous Sulfate 325 mg 10/31/19 17:30 Feosol - PO BIDWM ROSETTA Meropenem 1 gm/ Dextrose 100 mls @ 0 mls/hr 10/29/19 13:00 10/31/19 02:20 IVPB 100 mls/hr Q12H ROSETTA Administration As Directed Insulin Aspart 1 vial 10/29/19 09:51 10/31/19 11:39 Novolog Vial Sliding Scale - SQ 2 units ACHS ROSETTA Administration Protocol Insulin Detemir 8 units 10/30/19 22:00 10/31/19 05:59 Levemir Vial SQ 8 units BID@0700,2200 [facility] Administration Home Medications Medication Instructions Recorded Amlodipine Besylate 10 mg PO DAILY 06/26/18 Ferric Citrate [Auryxia] 210 mg PO DAILY 06/26/18 Glipizide 5 mg PO DAILY 10/27/19 Ertapenem Sodium [Ertapenem] 1 gm IVPB DAILY 11 Days #11 vial 10/31/19 Microbiology 10/28/19 12:40 Sputum - Expectorated Gram Stain - Final 10/28/19 12:40 Sputum - Expectorated Sputum Culture - Final NORMAL RESPIRATORY SHANE 10/27/19 02:10 Blood - Peripheral Venous Blood Culture - Preliminary NO GROWTH OBTAINED AFTER 96 HOURS, INCUBATION TO CONTINUE FOR 1 DAYS. 10/27/19 02:10 Blood - Peripheral Venous Blood Culture - Preliminary NO GROWTH OBTAINED AFTER 96 HOURS, INCUBATION TO CONTINUE FOR 1 DAYS. 10/27/19 04:00 Urine - Urine Clean Catch Urine Culture - Final Escherichia Coli Esbl Ultrasound Tech 10/27/19 20:00 Urine For Antigen Detection Legionella Antigen - Final 10/27/19 20:00 Urine For Antigen Detection Streptococcus pneumoniae Antigen (M - Final ASSESSMENT AND PLAN: This patient is a 59yof with Pmhx of HTN, DM, CKD, anemia who presented with shortness of breath, fever of 102F at home with fluctuating blood sugar at home. #Sepsis due to UTI growing E.coli ESBL media producer sensitive to everything continue Meropenem, Picc line with ertapenem as per Dr Baig for 14 days total #PNA cannot r/o covid: even though covid id negative , continue Meropenem , ertapenem on dc as per ID , covid is negative, CT is read; extensive BL Lower lobe consolidation, R>L, concerning for acute pneumonia. covid 19 cannot be exc luded, continue to monitor dAILY MARKERS for covid, will continue Ac, will monitor hemoglobin #Anemia: possible due to her CKd , folic acid and B12 normal #CHARLES on CKD: patients Cr on arrival was 2.5 (baseline around 1.8), adjust meds according to creatinine clearance which is around 25 #T2DM: continue with BGMs ACHS ISS, levemir 8units bid , will continue to monitor #HTN: continue Amlodipine home meds #Hypomag: replete #Covid is negative but is high suspecious for covid , continue to follow markers DVT Px: eliquis Dispo: medSurg
[2019-10-31] MEDS ORDERED: FERROUS SO4 325 MG TABLET (FP) PO SCH ×2 (17:15→17:30)
[2019-10-31] MEDS: FERROUS SO4 325 MG TABLET (FP) PO SCH (18:34)
[2019-10-31] MEDS ORDERED: SENNOSIDES 8.6MG TABLET (FP) PO SCH (22:00)
[2019-10-31] MEDS ORDERED: INSULIN (LEVEMIR) 100 UNITS/ML UNITS SQ ONE (22:05)
[2019-10-31] MEDS ORDERED: INSULIN (NOVOLOG) ASPART 100 UNITS/ML 10ML VIAL ONE (22:05)
[2019-10-31] MEDS: DOCUSATE SODIUM 100 MG CAPSULE (FP) PO SCH (22:12)
[2019-11-01] MEDS: MEROPENEM 1 GM in DEXTROSE 5%-WATER 100 ML IVPB SCH ×2 (00:37→15:06)
[2019-11-01] MEDS: INSULIN (LEVEMIR) 100 UNITS/ML UNITS SQ SCH ×2 (06:19→21:38)
[2019-11-01] MEDS: INSULIN SLIDING SCALE (NOVOLOG) 1 VIAL SQ SCH ×5 (06:24→21:38)
[2019-11-01] MEDS: ALBUTEROL SO4 2.5/IPRATROPIUM 0.5 INH SOL 3 ML VIAL.NEB. NEB SCH ×3 (07:54→20:15)
[2019-11-01] MEDS: amLODIPine BESYLATE 10 MG TABLET (FP) PO SCH (09:08)
[2019-11-01] MEDS: DOCUSATE SODIUM 100 MG CAPSULE (FP) PO SCH ×2 (09:08→21:38)
[2019-11-01] MEDS: FERROUS SO4 325 MG TABLET (FP) PO SCH ×2 (09:08→17:57)
[2019-11-01] MEDS: APIXABAN 2.5 MG TABLET PO SCH ×2 (09:08→21:38)
--- NOTE | 2019-11-01 09:13 | PN ---
Progress Note, Physician Chief Complaint: Remained afebrile hemodynamically stable History of Present Illness: 59yof with Pmhx of HTN, DM, CKD, anemia who presented with shortness of breath, fever of 102F at home with fluctuating blood sugar at home. She was gram- negative sepsis secondary to UTI improved with IV antibiotic. - Current Medication List Current Medications: Active Medications Acetaminophen (Tylenol -) 650 mg PO Q6H PRN PRN Reason: Fever Or Pain Last Admin: 10/28/19 16:13 Dose: 650 mg Documented by: Albuterol/Ipratropium (Duoneb -) 1 amp NEB RTID [facility] Last Admin: 11/01/19 07:54 Dose: 1 amp Documented by: Amlodipine Besylate (Norvasc -) 10 mg PO DAILY [facility] Last Admin: 10/31/19 11:38 Dose: 10 mg Documented by: Apixaban (Eliquis -) 2.5 mg PO BID [facility] Last Admin: 10/31/19 22:12 Dose: 2.5 mg Documented by: Docusate Sodium (Colace -) 100 mg PO BID [facility] Last Admin: 10/31/19 22:12 Dose: 100 mg Documented by: Ferrous Sulfate (Feosol -) 325 mg PO BIDWM [facility] Last Admin: 10/31/19 18:34 Dose: 325 mg Documented by: Meropenem 1 gm/ Dextrose 100 mls @ 0 mls/hr IVPB Q12H [facility] Last Admin: 11/01/19 00:37 Dose: 100 mls/hr Documented by: Insulin Aspart (Novolog Vial Sliding Scale -) 1 vial SQ ACHS [facility]; Protocol Last Admin: 11/01/19 06:24 Dose: 2 units Documented by: Insulin Detemir (Levemir Vial) 8 units SQ BID@0700,2200 [facility] Last Admin: 11/01/19 06:19 Dose: 8 units Documented by: - Objective Vital Signs: Vital Signs Temperature 98.8 F 11/01/19 05:47 Pulse Rate 89 11/01/19 05:47 Respiratory Rate 20 11/01/19 05:47 Blood Pressure 137/65 11/01/19 05:47 O2 Sat by Pulse Oximetry (%) 96 11/01/19 05:47 General: Middle-aged woman, comfortable, not in distress HEENT mucous membranes moist, no anemia, no jaundice, PERRLA, no nystagmus Neck: No JVD, supple, no bruit, thyroid palpably normal, normal carotid pulsations. Chest: Nontender, bilateral basal rales. CVS: S1-S2 regular no murmur/gallop/rub Abdomen: Nondistended, soft, bowel sounds present. Extremities: No edema., No Calf tenderness, pulses present FITTINGS FINISHER: AO X3 , no gross motor sensory deficit Labs: CBC, BMP 10/31/19 06:40 10/31/19 06:40 INR, PTT INR 1.23 (0.83-1.09) H 10/27/19 02:10 Problem List - Problems (1) Sepsis secondary to UTI Assessment/Plan: Patient present with fever, CHARLES on CKD urine culture grew ESBL E. coli on meropenem day fifth follow-up ID recommendation Problems reviewed: Yes Code(s): A41.9 - SEPSIS, UNSPECIFIED ORGANISM; N39.0 - URINARY TRACT INFECTION, SITE NOT SPECIFIED (2) CHARLES (acute kidney injury) Assessment/Plan: Renal function stable continue current management follow-up BMP Problems reviewed: Yes Code(s): N17.9 - ACUTE KIDNEY FAILURE, UNSPECIFIED (3) Hypertension Assessment/Plan: Well-controlled continue current medication Problems reviewed: Yes Code(s): I10 - ESSENTIAL (PRIMARY) HYPERTENSION (4) Type 2 diabetes mellitus Assessment/Plan: Fingersticks are well controlled resume home medication on discharge Problems reviewed: Yes Code(s): E11.9 - TYPE 2 DIABETES MELLITUS WITHOUT COMPLICATIONS (5) CKD (chronic kidney disease) stage 4, GFR 15-29 ml/min Assessment/Plan: Renal functions are Problems reviewed: Yes Code(s): N18.4 - CHRONIC KIDNEY DISEASE, STAGE 4 (SEVERE) (6) Anemia in chronic kidney disease Assessment/Plan: H&h are stable Problems reviewed: Yes Code(s): N18.9 - CHRONIC KIDNEY DISEASE, UNSPECIFIED; D63.1 - ANEMIA IN CHRONIC KIDNEY DISEASE
[2019-11-01 09:24] LABS: BASO % 0.4 % (0-2.0); HEMATOCRIT 23.2 % (32.4-45.2); HEMOGLOBIN 7.6 GM/dL (10.7-15.3); LYMPH % 11.2 % (8-40); MCH 29.1 pg (25.7-33.7); MCHC 32.8 g/dl (32.0-36.0); MONO % 17.2 % (3.8-10.2); NEUT % 69.2 % (42.8-82.8); PLATELET COUNT 312 K/MM3 (134-434); RBC 2.61 M/mm3 (3.60-5.2); RDW 15.3 % (11.6-15.6); WHITE BLOOD COUNT 8.8 K/mm3 (4.0-10.0)
[2019-11-01 10:18] LABS: POTASSIUM 4.7 mmol/L (3.5-5.1)
[2019-11-01 10:25] LABS: BLOOD UREA NITROGEN 70.2 mg/dL (7-18); CREATININE 2.1 mg/dL (0.55-1.3)
[2019-11-01 11:18] LABS: ANISOCYTOSIS 0; MACROCYTOSIS 0; PLATELET ESTIMATE NORMAL
[2019-11-01] MEDS ORDERED: PT OWN MED DRAWER 7, Y5N ONE (13:39)
--- NOTE | 2019-11-01 14:20 | PN ---
Progress Note, Physician History of Present Illness: Pt is alert, doing well. Afebrile, without any distress on RA currently. No specific complaints. - Current Medication List Current Medications: Active Medications Acetaminophen (Tylenol -) 650 mg PO Q6H PRN PRN Reason: Fever Or Pain Last Admin: 10/28/19 16:13 Dose: 650 mg Documented by: Albuterol/Ipratropium (Duoneb -) 1 amp NEB RTID [facility] Last Admin: 11/01/19 07:54 Dose: 1 amp Documented by: Amlodipine Besylate (Norvasc -) 10 mg PO DAILY [facility] Last Admin: 11/01/19 09:08 Dose: 10 mg Documented by: Apixaban (Eliquis -) 2.5 mg PO BID [facility] Last Admin: 11/01/19 09:08 Dose: 2.5 mg Documented by: Docusate Sodium (Colace -) 100 mg PO BID [facility] Last Admin: 11/01/19 09:08 Dose: 100 mg Documented by: Ferrous Sulfate (Feosol -) 325 mg PO BIDWM [facility] Last Admin: 11/01/19 09:08 Dose: 325 mg Documented by: Meropenem 1 gm/ Dextrose 100 mls @ 0 mls/hr IVPB Q12H [facility] Last Admin: 11/01/19 00:37 Dose: 100 mls/hr Documented by: Insulin Aspart (Novolog Vial Sliding Scale -) 1 vial SQ ACHS [facility]; Protocol Last Admin: 11/01/19 12:04 Dose: 2 units Documented by: Insulin Detemir (Levemir Vial) 8 units SQ BID@0700,2200 [facility] Last Admin: 11/01/19 06:19 Dose: 8 units Documented by: - Objective Vital Signs: Vital Signs Temperature 98.8 F 11/01/19 05:47 Pulse Rate 100 H 11/01/19 09:51 Respiratory Rate 22 H 11/01/19 09:51 Blood Pressure 160/80 11/01/19 09:51 O2 Sat by Pulse Oximetry (%) 97 11/01/19 09:51 Constitutional: Yes: No Distress, Calm Neck: Yes: Supple Cardiovascular: Yes: Regular Rate and Rhythm Respiratory: Yes: Regular Gastrointestinal: Yes: Normal Bowel Sounds, Soft, Abdomen, Obese Genitourinary: Yes: WNL Extremities: Yes: WNL Integumentary: Yes: WNL Neurological: Yes: Alert, Oriented Labs: CBC, BMP 11/01/19 08:02 11/01/19 08:02 INR, PTT INR 1.23 (0.83-1.09) H 10/27/19 02:10 Microbiology 10/27/19 02:10 Blood - Peripheral Venous Blood Culture - Final NO GROWTH AFTER 5 DAYS INCUBATION 10/27/19 02:10 Blood - Peripheral Venous Blood Culture - Final NO GROWTH AFTER 5 DAYS INCUBATION 10/28/19 12:40 Sputum - Expectorated Gram Stain - Final 10/28/19 12:40 Sputum - Expectorated Sputum Culture - Final NORMAL RESPIRATORY SHANE 10/27/19 04:00 Urine - Urine Clean Catch Urine Culture - Final Escherichia Coli Esbl Taper Operator 10/27/19 20:00 Urine For Antigen Detection Legionella Antigen - Final 10/27/19 20:00 Urine For Antigen Detection Streptococcus pneumoniae Antigen (M - Final - ....Imaging Cat Scan: Report Reviewed Problem List - Problems (1) Anemia in chronic kidney disease Code(s): N18.9 - CHRONIC KIDNEY DISEASE, UNSPECIFIED; D63.1 - ANEMIA IN CHRONIC KIDNEY DISEASE (2) CKD (chronic kidney disease) stage 4, GFR 15-29 ml/min Code(s): N18.4 - CHRONIC KIDNEY DISEASE, STAGE 4 (SEVERE) (3) Hypertension Code(s): I10 - ESSENTIAL (PRIMARY) HYPERTENSION (4) Sepsis secondary to UTI Code(s): A41.9 - SEPSIS, UNSPECIFIED ORGANISM; N39.0 - URINARY TRACT INFECTION, SITE NOT SPECIFIED (5) Type 2 diabetes mellitus Code(s): E11.9 - TYPE 2 DIABETES MELLITUS WITHOUT COMPLICATIONS (6) CHARLES (acute kidney injury) Code(s): N17.9 - ACUTE KIDNEY FAILURE, UNSPECIFIED (7) Pneumonia Code(s): J18.9 - PNEUMONIA, UNSPECIFIED ORGANISM Qualifiers: Pneumonia type: due to unspecified organism Laterality: unspecified laterality Lung location: unspecified part of lung Qualified Code(s): J18.9 - Pneumonia, unspecified organism Assessment/Plan RLL PNA UTI - ESBL+ CHARLES on CKD DM HTN -- doing well, wbc now normal, afebrile -- continue Meropenem, may switch to Ertapenem on d/c and complete total of 14 days of antibiotic -- continue monitor -- renal function improving
--- NOTE | 2019-11-01 14:39 | PN ---
Progress Note (short form) - Note Progress Note: Feels overall improved. No fevers recorded. No acute events overnight. Intake & Output 10/29/19 10/30/19 10/31/19 11/01/19 23:59 23:59 23:59 23:59 Intake Total 500 1020 1030 400 Balance 500 1020 1030 400 Weight 218 lb 9 oz 221 lb 1.6 oz 221 lb 2 oz 223 lb 3.2 oz Last Vital Signs Temp Pulse Resp BP Pulse Ox 98.8 F 100 H 22 H 160/80 97 11/01/19 05:47 11/01/19 09:51 11/01/19 09:51 11/01/19 09:51 11/01/19 09:51 Active Medications Acetaminophen (Tylenol -) 650 mg PO Q6H PRN PRN Reason: Fever Or Pain Last Admin: 10/28/19 16:13 Dose: 650 mg Documented by: Albuterol/Ipratropium (Duoneb -) 1 amp NEB RTID [facility] Last Admin: 11/01/19 07:54 Dose: 1 amp Documented by: Amlodipine Besylate (Norvasc -) 10 mg PO DAILY [facility] Last Admin: 11/01/19 09:08 Dose: 10 mg Documented by: Apixaban (Eliquis -) 2.5 mg PO BID [facility] Last Admin: 11/01/19 09:08 Dose: 2.5 mg Documented by: Docusate Sodium (Colace -) 100 mg PO BID [facility] Last Admin: 11/01/19 09:08 Dose: 100 mg Documented by: Ferrous Sulfate (Feosol -) 325 mg PO BIDWM [facility] Last Admin: 11/01/19 09:08 Dose: 325 mg Documented by: Meropenem 1 gm/ Dextrose 100 mls @ 0 mls/hr IVPB Q12H [facility] Last Admin: 11/01/19 00:37 Dose: 100 mls/hr Documented by: Insulin Aspart (Novolog Vial Sliding Scale -) 1 vial SQ ACHS [facility]; Protocol Last Admin: 11/01/19 12:04 Dose: 2 units Documented by: Insulin Detemir (Levemir Vial) 8 units SQ BID@0700,2200 [facility] Last Admin: 11/01/19 06:19 Dose: 8 units Documented by: Gen: NAD at rest Heart: RRR Lung: right base rhonchi Abd: soft, nontender Ext: no edema Laboratory Results - last 24 hr 10/31/19 10/31/19 11/01/19 17:03 22:11 06:22 WBC RBC Hgb Hct MCV MCH MCHC RDW Plt Count MPV Absolute Neuts (auto) Neutrophils % Neutrophils % (Manual) Band Neutrophils % Lymphocytes % Lymphocytes % (Manual) Monocytes % Monocytes % (Manual) Eosinophils % Eosinophils % (Manual) Basophils % Basophils % (Manual) Myelocytes % (Man) Promyelocytes % (Man) Blast Cells % (Manual) Nucleated RBC % Metamyelocytes Hypochromia Platelet Estimate Polychromasia Anisocytosis Microcytosis Macrocytosis Sodium Potassium Chloride Carbon Dioxide Anion Gap BUN Creatinine Est GFR (CKD-EPI)AfAm Est GFR (CKD-EPI)NonAf POC Glucometer 149 83 125 Random Glucose Calcium 11/01/19 11/01/19 11/01/19 08:02 08:02 11:50 WBC 8.8 RBC 2.61 L Hgb 7.6 L Hct 23.2 L MCV 89.0 MCH 29.1 MCHC 32.8 RDW 15.3 Plt Count 312 MPV 9.0 Absolute Neuts (auto) 6.1 Neutrophils % 69.2 Neutrophils % (Manual) 69.1 Band Neutrophils % 0.9 Lymphocytes % 11.2 Lymphocytes % (Manual) 12.7 Monocytes % 17.2 H Monocytes % (Manual) 15 H Eosinophils % 2.0 Eosinophils % (Manual) 2.7 Basophils % 0.4 Basophils % (Manual) 0.0 Myelocytes % (Man) 0 Promyelocytes % (Man) 0 Blast Cells % (Manual) 0 Nucleated RBC % 0 Metamyelocytes 0 Hypochromia 0 Platelet Estimate Normal Polychromasia 0 Anisocytosis 0 Microcytosis 0 Macrocytosis 0 Sodium 138 Potassium 4.7 Chloride 106 Carbon Dioxide 27 Anion Gap 5 L BUN 70.2 H Creatinine 2.1 H Est GFR (CKD-EPI)AfAm 28.72 Est GFR (CKD-EPI)NonAf 24.78 POC Glucometer 112 Random Glucose 112 H Calcium 9.0 A/P RLL Pneumonia UTI HTN DM Acute on CKD - ABX Per ID - inhaled bronchodilators - DVT prophylaxis Dr Gambino
[2019-11-02] MEDS ORDERED: MEROPENEM 1 GM VIAL (RESTRICTED TO ID) IVPB ONE ×2 (01:42→13:53)
[2019-11-02] MEDS ORDERED: DEXTROSE 5%-WATER 100 ML IVPB ONE ×2 (01:43→13:53)
[2019-11-02] MEDS: MEROPENEM 1 GM in DEXTROSE 5%-WATER 100 ML IVPB SCH ×2 (01:51→14:22)
[2019-11-02] MEDS: INSULIN (LEVEMIR) 100 UNITS/ML UNITS SQ SCH ×2 (06:38→21:38)
[2019-11-02] MEDS: INSULIN SLIDING SCALE (NOVOLOG) 1 VIAL SQ SCH ×4 (06:39→21:38)
[2019-11-02] MEDS: ALBUTEROL SO4 2.5/IPRATROPIUM 0.5 INH SOL 3 ML VIAL.NEB. NEB SCH (08:05)
--- NOTE | 2019-11-02 09:04 | PN ---
Teaching Attending Note Name of Resident: Patti Bansal ATTENDING PHYSICIAN STATEMENT I saw and evaluated the patient. I reviewed the resident's note and discussed the case with the resident. I agree with the resident's findings and plan as documented. SUBJECTIVE: OBJECTIVE: Vital Signs Temperature 98.3 F 11/02/19 06:00 Pulse Rate 95 H 11/02/19 06:00 Respiratory Rate 18 11/02/19 06:00 Blood Pressure 143/65 11/02/19 06:00 O2 Sat by Pulse Oximetry (%) 93 L 11/02/19 06:00 General: Middle-aged woman, comfortable, not in distress HEENT mucous membranes moist, no anemia, no jaundice, PERRLA, no nystagmus Neck: No JVD, supple, no bruit, thyroid palpably normal, normal carotid pulsations. Chest: Nontender, bilateral basal rales. CVS: S1-S2 regular no murmur/gallop/rub Abdomen: Nondistended, soft, bowel sounds present. Extremities: No edema., No Calf tenderness, pulses present DIRECTOR OF ROOMS: AO X3 , no gross motor sensory deficit CBC, BMP 11/01/19 08:02 11/01/19 08:02 - Current Medication List Current Medications: Active Medications Acetaminophen (Tylenol -) 650 mg PO Q6H PRN PRN Reason: Fever Or Pain Last Admin: 10/28/19 16:13 Dose: 650 mg Documented by: Albuterol/Ipratropium (Duoneb -) 1 amp NEB RTID [facility] Last Admin: 11/01/19 07:54 Dose: 1 amp Documented by: Amlodipine Besylate (Norvasc -) 10 mg PO DAILY [facility] Last Admin: 10/31/19 11:38 Dose: 10 mg Documented by: Apixaban (Eliquis -) 2.5 mg PO BID [facility] Last Admin: 10/31/19 22:12 Dose: 2.5 mg Documented by: Docusate Sodium (Colace -) 100 mg PO BID [facility] Last Admin: 10/31/19 22:12 Dose: 100 mg Documented by: Ferrous Sulfate (Feosol -) 325 mg PO BIDWM [facility] Last Admin: 10/31/19 18:34 Dose: 325 mg Documented by: Meropenem 1 gm/ Dextrose 100 mls @ 0 mls/hr IVPB Q12H [facility] Last Admin: 11/01/19 00:37 Dose: 100 mls/hr Documented by: Insulin Aspart (Novolog Vial Sliding Scale -) 1 vial SQ ACHS [facility]; Protocol Last Admin: 11/01/19 06:24 Dose: 2 units Documented by: Insulin Detemir (Levemir Vial) 8 units SQ BID@0700,2200 [facility] Last Admin: 11/01/19 06:19 Dose: 8 units Documented by: COVID-19 PCR: Negative Code 19 antibody: Negative ASSESSMENT AND PLAN:59yof with Pmhx of HTN, DM, CKD, anemia who presented with shortness of breath, fever of 102F at home with fluctuating blood sugar at home. She was gram-negative sepsis secondary to UTI improved with IV antibiotic. Impression: CT chest shows infiltrate COVID-19 PCR and cold 19 antibodies are negative continue observation UTI with sepsis: The recommended duration of antibiotic for total 2 weeks completed 7day PICC line placement for home IV antibiotic Hypoxia on exertion: Reevaluate to decide: Home need for oxygen therapy Uncontrolled diabetes mellitus: Follow-up hemoglobin A1c Case discussed with the team and resident Problem List - Problems (1) Sepsis secondary to UTI Assessment/Plan: Patient present with fever, CHARLES on CKD urine culture grew ESBL E. coli on meropenem day fifth follow-up ID recommendation Code(s): A41.9 - SEPSIS, UNSPECIFIED ORGANISM; N39.0 - URINARY TRACT INFECTION, SITE NOT SPECIFIED (2) CHARLES (acute kidney injury) Assessment/Plan: Renal function stable continue current management follow-up BMP Code(s): N17.9 - ACUTE KIDNEY FAILURE, UNSPECIFIED (3) Hypertension Assessment/Plan: Well-controlled continue current medication Code(s): I10 - ESSENTIAL (PRIMARY) HYPERTENSION (4) Type 2 diabetes mellitus Assessment/Plan: Fingersticks are well controlled resume home medication on discharge Code(s): E11.9 - TYPE 2 DIABETES MELLITUS WITHOUT COMPLICATIONS (5) CKD (chronic kidney disease) stage 4, GFR 15-29 ml/min Assessment/Plan: Renal functions are improved to baseline follow-up as an outpatient Code(s): N18.4 - CHRONIC KIDNEY DISEASE, STAGE 4 (SEVERE) (6) Anemia in chronic kidney disease Assessment/Plan: H&h are stable Code(s): N18.9 - CHRONIC KIDNEY DISEASE, UNSPECIFIED; D63.1 - ANEMIA IN CHRONIC KIDNEY DISEASE
[2019-11-02] MEDS: APIXABAN 2.5 MG TABLET PO SCH ×2 (10:45→21:38)
[2019-11-02] MEDS: DOCUSATE SODIUM 100 MG CAPSULE (FP) PO SCH ×2 (10:45→21:38)
[2019-11-02] MEDS: FERROUS SO4 325 MG TABLET (FP) PO SCH ×2 (10:45→17:55)
[2019-11-02] MEDS: amLODIPine BESYLATE 10 MG TABLET (FP) PO SCH (10:45)
--- NOTE | 2019-11-02 12:44 | PN ---
Physical Exam: SUBJECTIVE: Patient seen and examined. No acute overnight events OBJECTIVE: Vital Signs Period Temp Pulse Resp BP Sys/Chan Pulse Ox Last 24 Hr 97.9 F-99.4 F 93-103 18-20 121-149/55-76 93-96 GENERAL: The patient is awake, alert, and fully oriented, in no acute distress. LUNGS: decr breath sounds @ b/l bases HEART: Regular rate and rhythm, S1, S2 without murmur, rub or gallop. ABDOMEN: Soft, nontender, nondistended, + bowel sounds EXTREMITIES: 2+ pulses, warm, well-perfused, no edema. SKIN: no rashes or lesions noted Laboratory Results - last 24 hr 11/01/19 11/01/19 11/02/19 17:56 21:29 06:37 POC Glucometer 173 138 123 11/02/19 12:16 POC Glucometer 221 Active Medications Generic Name Dose Route Start Last Admin Trade Name Freq PRN Reason Stop Dose Admin Acetaminophen 650 mg 10/27/19 15:38 10/28/19 16:13 Tylenol - PO 650 mg Q6H PRN Administration Fever Or Pain Albuterol/Ipratropium 1 amp 10/28/19 14:00 11/02/19 08:05 Duoneb - NEB 1 amp RTID [facility] Administration Amlodipine Besylate 10 mg 10/27/19 17:00 11/02/19 10:45 Norvasc - PO 10 mg DAILY [facility] Administration Apixaban 2.5 mg 10/28/19 10:00 11/02/19 10:45 Eliquis - PO 2.5 mg BID [facility] Administration Docusate Sodium 100 mg 10/31/19 22:00 11/02/19 10:45 Colace - PO 100 mg BID [facility] Administration Ferrous Sulfate 325 mg 10/31/19 17:30 11/02/19 10:45 Feosol - PO 325 mg BIDWM [facility] Administration Meropenem 1 gm/ Dextrose 100 mls @ 0 mls/hr 10/29/19 13:00 11/02/19 01:51 IVPB 200 mls/hr Q12H [facility] Administration As Directed Insulin Aspart 1 vial 10/29/19 09:51 11/02/19 12:17 Novolog Vial Sliding Scale - SQ 6 units ACHS [facility] Administration Protocol Insulin Detemir 8 units 10/30/19 22:00 11/02/19 06:38 Levemir Vial SQ 8 units BID@0700,2200 [facility] Administration ASSESSMENT/PLAN: 59 y.o. F PMH HTN, DM, CKD, Anemia likely 2/2 CKD presented from home for 102F home fever and fluctuating home glucose measurements. #Sepsis 2/2 ESBL UTI -continue abx; now on meropenem (today day #6 total abx, #5 bear) -will need 2 weeks IV infusions, may switch to ertapenem on d/c for a total of 14 days abx -plan for tunneled catheter -social work planning for outpatient infusions #Hypoxia 2/2 RLL PNA -CT chest with GGO indicative of COVID-19 pneuonitis, however COVID-19 PCR negative -will obtain SARS-CoV-2 ab's -patient currently off supplemental O2 but still requiring with ambulation -repeat pre & post, assess off O2 for now -continue inhaled bronchodilators -s/p rocephin/zosyn, now on meropenem -c/w therapeutic AC; eliquis 2.5mg BID -trend inflamm markers; D-dimer now downtrending #Normocytic Anemia -Likely anemia of chronic disease 2/2 to CKD -c/w Ferous Sulfate 325 BID -monitor h&h, transfusion threshold <7 -bowel regimen #CHARLES on CKD -resolving -trend renal labs -Renal US: Chronic scarring w/o evidence of hydronephrosis #DM -BGM, ISS ACHS -Insulin Detemir 8U BID -holding home glipizide #HTN -Continue Amlodipine 10mg daily -Hold Lasix and ACEi 2/2 CHARLES #FEN -No standing fluids -Monitor BMP -Sodium/diabetic diet #PPX -on eliquis Dispo: Continue following on medsurg Visit type - Emergency Visit Emergency Visit: No - New Patient This patient is new to me today: No - Critical Care Critical Care patient: No ATTENDING PHYSICIAN STATEMENT I saw and evaluated the patient. I reviewed the resident's note and discussed the case with the resident. I agree with the resident's findings and plan as documented. SUBJECTIVE: OBJECTIVE: ASSESSMENT AND PLAN:
--- NOTE | 2019-11-02 13:15 | PN ---
Progress Note (short form) - Note Progress Note: Feels overall improved. No fevers recorded. No acute events overnight. Intake & Output 10/30/19 10/31/19 11/01/19 11/02/19 23:59 23:59 23:59 23:59 Intake Total 1020 1030 800 350 Balance 1020 1030 800 350 Weight 221 lb 1.6 oz 221 lb 2 oz 223 lb 3.2 oz 223 lb 8 oz Last Vital Signs Temp Pulse Resp BP Pulse Ox 98.3 F 102 H 20 135/62 93 L 11/02/19 10:49 11/02/19 10:49 11/02/19 10:49 11/02/19 10:49 11/02/19 10:49 Active Medications Acetaminophen (Tylenol -) 650 mg PO Q6H PRN PRN Reason: Fever Or Pain Last Admin: 10/28/19 16:13 Dose: 650 mg Documented by: Albuterol/Ipratropium (Duoneb -) 1 amp NEB RTID [facility] Last Admin: 11/02/19 08:05 Dose: 1 amp Documented by: Amlodipine Besylate (Norvasc -) 10 mg PO DAILY [facility] Last Admin: 11/02/19 10:45 Dose: 10 mg Documented by: Apixaban (Eliquis -) 2.5 mg PO BID [facility] Last Admin: 11/02/19 10:45 Dose: 2.5 mg Documented by: Docusate Sodium (Colace -) 100 mg PO BID [facility] Last Admin: 11/02/19 10:45 Dose: 100 mg Documented by: Ferrous Sulfate (Feosol -) 325 mg PO BIDWM [facility] Last Admin: 11/02/19 10:45 Dose: 325 mg Documented by: Meropenem 1 gm/ Dextrose 100 mls @ 0 mls/hr IVPB Q12H [facility] Last Admin: 11/02/19 01:51 Dose: 200 mls/hr Documented by: Insulin Aspart (Novolog Vial Sliding Scale -) 1 vial SQ ACHS [facility]; Protocol Last Admin: 11/02/19 12:17 Dose: 6 units Documented by: Insulin Detemir (Levemir Vial) 8 units SQ BID@0700,2200 [facility] Last Admin: 11/02/19 06:38 Dose: 8 units Documented by: Gen: NAD at rest Heart: RRR Lung: basilar rhonchi Abd: soft, nontender Ext: no edema Laboratory Results - last 24 hr 11/01/19 11/01/19 11/02/19 17:56 21:29 06:37 POC Glucometer 173 138 123 11/02/19 12:16 POC Glucometer 221 A/P RLL Pneumonia UTI HTN DM Acute on CKD - Check COVID19 Antibodies - ABX Per ID - inhaled bronchodilators - DVT prophylaxis Dr Gambino
--- NOTE | 2019-11-02 14:31 | PN ---
Progress Note, Physician History of Present Illness: Pt alert, feeling better. No distress noted on RA. - Current Medication List Current Medications: Active Medications Acetaminophen (Tylenol -) 650 mg PO Q6H PRN PRN Reason: Fever Or Pain Last Admin: 10/28/19 16:13 Dose: 650 mg Documented by: Amlodipine Besylate (Norvasc -) 10 mg PO DAILY [facility] Last Admin: 11/02/19 10:45 Dose: 10 mg Documented by: Apixaban (Eliquis -) 2.5 mg PO BID [facility] Last Admin: 11/02/19 10:45 Dose: 2.5 mg Documented by: Docusate Sodium (Colace -) 100 mg PO BID [facility] Last Admin: 11/02/19 10:45 Dose: 100 mg Documented by: Ferrous Sulfate (Feosol -) 325 mg PO BIDWM [facility] Last Admin: 11/02/19 10:45 Dose: 325 mg Documented by: Meropenem 1 gm/ Dextrose 100 mls @ 0 mls/hr IVPB Q12H [facility] Last Admin: 11/02/19 14:22 Dose: 100 mls/hr Documented by: Insulin Aspart (Novolog Vial Sliding Scale -) 1 vial SQ ACHS [facility]; Protocol Last Admin: 11/02/19 12:17 Dose: 6 units Documented by: Insulin Detemir (Levemir Vial) 8 units SQ BID@0700,2200 [facility] Last Admin: 11/02/19 06:38 Dose: 8 units Documented by: - Objective Vital Signs: Vital Signs Temperature 98.3 F 11/02/19 10:49 Pulse Rate 102 H 11/02/19 10:49 Respiratory Rate 11/02/19 10:49 Blood Pressure 135/62 11/02/19 10:49 O2 Sat by Pulse Oximetry (%) 93 L 11/02/19 10:49 Constitutional: Yes: No Distress, Calm Cardiovascular: Yes: Regular Rate and Rhythm Respiratory: Yes: Regular Gastrointestinal: Yes: Normal Bowel Sounds, Soft, Abdomen, Obese Genitourinary: Yes: WNL Extremities: Yes: WNL Integumentary: Yes: WNL Neurological: Yes: Alert, Oriented Labs: CBC, BMP 11/01/19 08:02 11/01/19 08:02 INR, PTT INR 1.23 (0.83-1.09) H 10/27/19 02:10 Problem List - Problems (1) Anemia in chronic kidney disease Code(s): N18.9 - CHRONIC KIDNEY DISEASE, UNSPECIFIED; D63.1 - ANEMIA IN CHRONIC KIDNEY DISEASE (2) CKD (chronic kidney disease) stage 4, GFR 15-29 ml/min Code(s): N18.4 - CHRONIC KIDNEY DISEASE, STAGE 4 (SEVERE) (3) Hypertension Code(s): I10 - ESSENTIAL (PRIMARY) HYPERTENSION (4) Sepsis secondary to UTI Code(s): A41.9 - SEPSIS, UNSPECIFIED ORGANISM; N39.0 - URINARY TRACT INFECTION, SITE NOT SPECIFIED (5) Type 2 diabetes mellitus Code(s): E11.9 - TYPE 2 DIABETES MELLITUS WITHOUT COMPLICATIONS (6) CHARLES (acute kidney injury) Code(s): N17.9 - ACUTE KIDNEY FAILURE, UNSPECIFIED (7) Pneumonia Code(s): J18.9 - PNEUMONIA, UNSPECIFIED ORGANISM Qualifiers: Pneumonia type: due to unspecified organism Laterality: unspecified laterality Lung location: unspecified part of lung Qualified Code(s): J18.9 - Pneumonia, unspecified organism Assessment/Plan RLL PNA UTI - ESBL+ CHARLES on CKD DM HTN -- continues to do well -- continue Meropenem, may switch to Ertapenem on d/c and complete total of 14 days of antibiotic -- continue monitor
[2019-11-02] MEDS: POLYETHYLENE GLYCOL 3350 119 GM BTL PO SCH (17:55)
[2019-11-03] MEDS: MEROPENEM 1 GM in DEXTROSE 5%-WATER 100 ML IVPB SCH ×2 (01:57→13:04)
[2019-11-03] MEDS ORDERED: MEROPENEM 1 GM VIAL (RESTRICTED TO ID) IVPB ONE ×2 (02:13→12:47)
[2019-11-03] MEDS ORDERED: DEXTROSE 5%-WATER 100 ML IVPB ONE ×2 (02:14→12:47)
[2019-11-03] MEDS: INSULIN (LEVEMIR) 100 UNITS/ML UNITS SQ SCH (06:46)
[2019-11-03] MEDS: INSULIN SLIDING SCALE (NOVOLOG) 1 VIAL SQ SCH ×2 (06:47→13:02)
[2019-11-03] MEDS ORDERED: PT OWN MED DRAWER 7, Y5N ONE (06:59)
[2019-11-03 08:30] LABS: HEMATOCRIT 25.5 % (32.4-45.2); HEMOGLOBIN 8.2 GM/dL (10.7-15.3); MCH 28.5 pg (25.7-33.7); MCHC 32.3 g/dl (32.0-36.0); MEAN CELL VOLUME 88.4 fl (80-96); MEAN PLT VOLUME 8.2 fl (7.5-11.1); PLATELET COUNT 445 K/MM3 (134-434); RBC 2.89 M/mm3 (3.60-5.2); RDW 15.7 % (11.6-15.6); WHITE BLOOD COUNT 9.3 K/mm3 (4.0-10.0)
[2019-11-03 08:55] LABS: CALCIUM 9.4 mg/dL (8.5-10.1); CREATININE 1.7 mg/dL (0.55-1.3); POTASSIUM 5.1 mmol/L (3.5-5.1)
[2019-11-03 09:02] LABS: BLOOD UREA NITROGEN 43.3 mg/dL (7-18)
[2019-11-03] MEDS: FERROUS SO4 325 MG TABLET (FP) PO SCH (10:32)
[2019-11-03] MEDS: DOCUSATE SODIUM 100 MG CAPSULE (FP) PO SCH (10:32)
[2019-11-03] MEDS: amLODIPine BESYLATE 10 MG TABLET (FP) PO SCH (10:32)
[2019-11-03] MEDS: POLYETHYLENE GLYCOL 3350 119 GM BTL PO SCH (13:00)
[2019-11-03] MEDS: APIXABAN 2.5 MG TABLET PO SCH (13:02)
--- NOTE | 2019-11-03 13:03 | PN ---
Progress Note, Physician History of Present Illness: stable no new issues - Current Medication List Current Medications: Active Medications Acetaminophen (Tylenol -) 650 mg PO Q6H PRN PRN Reason: Fever Or Pain Last Admin: 10/28/19 16:13 Dose: 650 mg Documented by: Amlodipine Besylate (Norvasc -) 10 mg PO DAILY [facility] Last Admin: 11/03/19 10:32 Dose: 10 mg Documented by: Apixaban (Eliquis -) 2.5 mg PO BID [facility] Last Admin: 11/02/19 21:38 Dose: 2.5 mg Documented by: Docusate Sodium (Colace -) 100 mg PO BID [facility] Last Admin: 11/03/19 10:32 Dose: 100 mg Documented by: Ferrous Sulfate (Feosol -) 325 mg PO BIDWM [facility] Last Admin: 11/03/19 10:32 Dose: 325 mg Documented by: Meropenem 1 gm/ Dextrose 100 mls @ 0 mls/hr IVPB Q12H [facility] Last Admin: 11/03/19 01:57 Dose: 200 mls/hr Documented by: Insulin Aspart (Novolog Vial Sliding Scale -) 1 vial SQ ACHS [facility]; Protocol Last Admin: 11/03/19 06:47 Dose: 2 units Documented by: Insulin Detemir (Levemir Vial) 8 units SQ BID@0700,2200 [facility] Last Admin: 11/03/19 06:46 Dose: 8 units Documented by: Polyethylene Glycol (Miralax (For Daily Use) -) 17 gm PO DAILY [facility] Last Admin: 11/02/19 17:55 Dose: 17 grams Documented by: - Objective Vital Signs: Vital Signs Temperature 98.2 F 11/03/19 06:50 Pulse Rate 92 H 11/03/19 06:50 Respiratory Rate 16 11/03/19 06:50 Blood Pressure 143/81 11/03/19 06:50 O2 Sat by Pulse Oximetry (%) 99 11/03/19 06:50 Constitutional: Yes: No Distress, Calm Cardiovascular: Yes: S1, S2 Respiratory: Yes: Regular, CTA Bilaterally Gastrointestinal: Yes: Normal Bowel Sounds, Soft Musculoskeletal: Yes: WNL Extremities: Yes: WNL Neurological: Yes: Alert, Oriented Psychiatric: Yes: Alert, Oriented Labs: CBC, BMP 11/03/19 07:24 11/03/19 07:24 INR, PTT INR 1.23 (0.83-1.09) H 10/27/19 02:10 Assessment/Plan Problem List - Problems (1) CHARLES (acute kidney injury) Code(s): N17.9 - ACUTE KIDNEY FAILURE, UNSPECIFIED (2) Pneumonia Code(s): J18.9 - PNEUMONIA, UNSPECIFIED ORGANISM Qualifiers: Pneumonia type: due to unspecified organism Laterality: unspecified laterality Lung location: unspecified part of lung Qualified Code(s): J18.9 - Pneumonia, unspecified organism Assessment/Plan Assessment/Plan RLL Pneumonia UTI HTN DM Acute on CKD worsening plan ertapneam to complete the course rest as per the team
--- NOTE | 2019-11-03 13:46 | PN ---
Progress Note (short form) - Note Progress Note: Feels overall improved. No fevers recorded. No acute events overnight. Intake & Output 10/31/19 11/01/19 11/02/19 11/03/19 23:59 23:59 23:59 23:59 Intake Total 1030 800 350 300 Balance 1030 800 350 300 Weight 221 lb 2 oz 223 lb 3.2 oz 223 lb 8 oz 221 lb Last Vital Signs Temp Pulse Resp BP Pulse Ox 98.2 F 92 H 16 143/81 99 11/03/19 06:50 11/03/19 06:50 11/03/19 06:50 11/03/19 06:50 11/03/19 06:50 Active Medications Acetaminophen (Tylenol -) 650 mg PO Q6H PRN PRN Reason: Fever Or Pain Last Admin: 10/28/19 16:13 Dose: 650 mg Documented by: Amlodipine Besylate (Norvasc -) 10 mg PO DAILY [facility] Last Admin: 11/03/19 10:32 Dose: 10 mg Documented by: Apixaban (Eliquis -) 2.5 mg PO BID [facility] Last Admin: 11/03/19 13:02 Dose: 2.5 mg Documented by: Docusate Sodium (Colace -) 100 mg PO BID [facility] Last Admin: 11/03/19 10:32 Dose: 100 mg Documented by: Ferrous Sulfate (Feosol -) 325 mg PO BIDWM [facility] Last Admin: 11/03/19 10:32 Dose: 325 mg Documented by: Meropenem 1 gm/ Dextrose 100 mls @ 0 mls/hr IVPB Q12H [facility] Last Admin: 11/03/19 13:04 Dose: 200 mls/hr Documented by: Insulin Aspart (Novolog Vial Sliding Scale -) 1 vial SQ ACHS [facility]; Protocol Last Admin: 11/03/19 13:02 Dose: 2 units Documented by: Insulin Detemir (Levemir Vial) 8 units SQ BID@0700,2200 [facility] Last Admin: 11/03/19 06:46 Dose: 8 units Documented by: Polyethylene Glycol (Miralax (For Daily Use) -) 17 gm PO DAILY [facility] Last Admin: 11/03/19 13:00 Dose: Not Given Documented by: Gen: NAD at rest Heart: RRR Lung: basilar rhonchi Abd: soft, nontender Ext: no edema Laboratory Results - last 24 hr 11/02/19 11/02/19 11/02/19 08:02 17:48 21:37 WBC RBC Hgb Hct MCV MCH MCHC RDW Plt Count MPV D-Dimer Sodium Potassium Chloride Carbon Dioxide Anion Gap BUN Creatinine Est GFR (CKD-EPI)AfAm Est GFR (CKD-EPI)NonAf POC Glucometer 90 139 Random Glucose Calcium Ferritin LD Total SARS-CoV-2 Ab Interp Non-reactive 11/03/19 11/03/19 11/03/19 06:45 07:24 07:24 WBC RBC Hgb Hct MCV MCH MCHC RDW Plt Count MPV D-Dimer 2245 H Sodium 139 Potassium 5.1 Chloride 107 Carbon Dioxide 27 Anion Gap 5 L BUN 43.3 H Creatinine 1.7 H Est GFR (CKD-EPI)AfAm 37.07 Est GFR (CKD-EPI)NonAf 31.99 POC Glucometer 105 Random Glucose 91 Calcium 9.4 Ferritin LD Total 295 H SARS-CoV-2 Ab Interp 11/03/19 11/03/19 11/03/19 07:24 07:24 12:57 WBC 9.3 RBC 2.89 L Hgb 8.2 L Hct 25.5 L MCV 88.4 MCH 28.5 MCHC 32.3 RDW 15.7 H Plt Count 445 H D MPV 8.2 D-Dimer Sodium Potassium Chloride Carbon Dioxide Anion Gap BUN Creatinine Est GFR (CKD-EPI)AfAm Est GFR (CKD-EPI)NonAf POC Glucometer 114 Random Glucose Calcium Ferritin 320.2 LD Total SARS-CoV-2 Ab Interp A/P RLL Pneumonia UTI HTN DM Acute on CKD - Check COVID19 Antibodies - ABX Per ID - inhaled bronchodilators - DVT prophylaxis Dr Gambion
[2019-11-03 15:30] VITALS: BP 141/78; PULSE 104; TEMP 98.5
--- NOTE | 2019-11-03 15:50 | DS ---
Physical Exam: SUBJECTIVE: Patient seen and examined today, in no acute distress, endorsing no complaints. OBJECTIVE: Vital Signs Period Temp Pulse Resp BP Sys/Chan Pulse Ox Last 24 Hr 98.2 F-98.8 F 92-104 16-18 141-147/73-81 92-100 PHYSICAL EXAM GENERAL: The patient is awake, alert, and fully oriented, in no acute distress. HEAD: Normal with no signs of trauma. EYES: PERRL, extraocular movements intact, sclera anicteric, conjunctiva clear. No ptosis. ENT: Ears normal, nares patent, oropharynx clear without exudates, moist mucous membranes. NECK: Trachea midline, full range of motion, supple. LUNGS: CTABL HEART: Regular rate and rhythm, S1, S2 without murmur, rub or gallop. ABDOMEN: Soft, nontender, nondistended, normoactive bowel sounds EXTREMITIES: 2+ pulses, warm, well-perfused, no edema. NEUROLOGICAL: Normal speech, gait not observed. PSYCH: Normal mood, normal affect. SKIN: Warm, dry, normal turgor, no rashes or lesions noted LABS Laboratory Results - last 24 hr 11/02/19 11/02/19 11/03/19 17:48 21:37 06:45 WBC RBC Hgb Hct MCV MCH MCHC RDW Plt Count MPV D-Dimer Sodium Potassium Chloride Carbon Dioxide Anion Gap BUN Creatinine Est GFR (CKD-EPI)AfAm Est GFR (CKD-EPI)NonAf POC Glucometer 90 139 105 Random Glucose Calcium Ferritin LD Total 11/03/19 11/03/19 11/03/19 07:24 07:24 07:24 WBC RBC Hgb Hct MCV MCH MCHC RDW Plt Count MPV D-Dimer 2245 H Sodium 139 Potassium 5.1 Chloride 107 Carbon Dioxide 27 Anion Gap 5 L BUN 43.3 H Creatinine 1.7 H Est GFR (CKD-EPI)AfAm 37.07 Est GFR (CKD-EPI)NonAf 31.99 POC Glucometer Random Glucose 91 Calcium 9.4 Ferritin 320.2 LD Total 295 H 11/03/19 11/03/19 07:24 12:57 WBC 9.3 RBC 2.89 L Hgb 8.2 L Hct 25.5 L MCV 88.4 MCH 28.5 MCHC 32.3 RDW 15.7 H Plt Count 445 H D MPV 8.2 D-Dimer Sodium Potassium Chloride Carbon Dioxide Anion Gap BUN Creatinine Est GFR (CKD-EPI)AfAm Est GFR (CKD-EPI)NonAf POC Glucometer 114 Random Glucose Calcium Ferritin LD Total HOSPITAL COURSE: Date of Admission:10/27/19 CT Chest: Extensive bilateral lower lobe consolidation, right greater than left, concerning for acute pneu monia. Covid-19 pneumonitis cannot be excluded. CXR: Elevated right hemidiaphragm with large heart, normal aorta, prominent lupis and some minimal status of the central vascular markings. Soft tissues are intact. There are degenerative changes. Renal US: Chronic scarring. No evidence of hydronephrosis EKG: NSR Date of Discharge: 11/03/19 59yo F with PMHx of HTN, DM, CKD, anemia who presented with a home fever of 102F and fluctuating home glucose measurements. Night prior to admission had Tmax of 102F which prompted the daughter to bring in the patient. She had some mild runny nose with clear drainage and was coughing up some phlegm. Patient also explained that her home glucose measurements have been fluctuating from the 50s to the 90s and up to the 200s. Denied headaches, SOB, palpitations, NVD, constipation, dysuria, polyuria. The ED course was notable for: (1) temp 100.6F, P 102, WBC 15.8, Hgb 8.7, Na 133, BUN 40.7, Cr 2.5, and glucose 209 (2) UA was cloudy with 2+ leukocyte esterase and positive for nitrites (>36 epithelial cells and >9000 bacteria) During the ptn's stay her UCx grew ESBL Ecoli, and she was started on Meropenem. Following the placement of a tunneled catheter for outpatient medication, she was started on Ertapenem for a total of 2 weeks, with 8 days remaining on treatment. Ptn tested negative for Covid. At the time of discharge, she was medically stable Minutes to complete discharge: 36 Discharge Summary Problems reviewed: Yes Reason For Visit: ACUTE KIDNEY INJURT,ANEMIA,SEPSIS,PNEUMONIA Condition: Stable - Instructions Diet, Activity, Other Instructions: Your visit: You were admitted to the hospital for a urinary tract infection and lung infection as well as management of your fever. You were found to have a resistant bacteria growing in your urine. You were treated with antibiotics with improvement of your symptoms. You are being discharged with a Tunneled Catheter line, which will allow you to continue taking your medication at home. Of note, imaging during your stay showed: CAT Scan: Evidence of lung infection which we referred you to a yard switch operator for Kidney Ultrasound: Chronic kidney damage, which we have referred you to a kidney doctor for. Medications changes: -Please continue to take Ertapenem once a day for two weeks total (8 more days). You will be required to come to the Hospital every day for Outpatient Infusions. You will stop needing these infusions on 11/11/2019. After, return for removal of your Tunneled Catheter line. 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 -Continue to take all other home medications as prescribed. Follow up: - Please follow-up with Dr. Baig (Infectious Disease) in 1 week for management of your infections - Please follow-up with Dr. Mcmullen (Pulmonology) in 1 week for management of your lung infection - Please follow-up with Dr. Hart (Nephrology) in 1 week for management of your Kidney disease - Please follow-up with Dr. Madison (Endocrinology) in 2 weeks for management of your diabetic regiment - Visit with your Primary Care Provider in 2 weeks. If you do not have a primary care provider you may make an appointment with Dr. Grady at [facility] at the [facility] clinic located at [address] [place] [address] ([phone]). Additional Instructions: -You are being discharged to your home. You will need to return to the hospital for daily antibiotic infusions. -Please return to the Emergency Department if you experience worsening pain, fevers, chills, shortness of breath, or chest pain, or if you experience any worsening, new or concerning symptoms. Referrals: Vaughn Avitia MD [Staff Physician] - 2 Weeks Leyla Baig MD [Staff Physician] - 1 Week Karli Hart MD [Staff Physician] - 1 Week Madhavi Madison MD [Staff Physician] - 2 Weeks Don Mcmullen MD, MD [Staff Physician] - 1 Week Disposition: HOME - Home Medications Comprehensive Discharge Medication List: Ambulatory Orders Amlodipine Besylate 10 mg PO DAILY 06/26/18 Ferric Citrate [Auryxia] 210 mg PO DAILY 06/26/18 Glipizide 5 mg PO DAILY 10/27/19 Ertapenem Sodium [Ertapenem] 1 gm CATH DAILY 8 Days #8 vial MDD 1 11/03/19 This patient is new to me today: No Emergency Visit: No Critical Care patient: No - Discharge Referral Referred to [facility] Med [facility] No ATTENDING PHYSICIAN STATEMENT I saw and evaluated the patient. I reviewed the resident's note and discussed the case with the resident. I agree with the resident's findings and plan as documented. SUBJECTIVE: OBJECTIVE: ASSESSMENT AND PLAN:
--- NOTE | 2019-11-03 16:28 | PN ---
Teaching Attending Note Name of Resident: Rafael Grady ATTENDING PHYSICIAN STATEMENT I saw and evaluated the patient. I reviewed the resident's note and discussed the case with the resident. I agree with the resident's findings and plan as documented. SUBJECTIVE: Patient is comfortable with NAD. Wants to go home OBJECTIVE: Vital Signs Temperature 98.5 F 11/03/19 15:27 Pulse Rate 104 H 11/03/19 15:27 Respiratory Rate 18 11/03/19 15:27 Blood Pressure 141/78 11/03/19 15:27 O2 Sat by Pulse Oximetry (%) 100 11/03/19 15:27 PE: per resident's note CBCD WBC 9.3 K/mm3 (4.0-10.0) 11/03/19 07:24 RBC 2.89 M/mm3 (3.60-5.2) L 11/03/19 07:24 Hgb 8.2 GM/dL (10.7-15.3) L 11/03/19 07:24 Hct 25.5 % (32.4-45.2) L 11/03/19 07:24 MCV 88.4 fl (80-96) 11/03/19 07:24 MCHC 32.3 g/dl (32.0-36.0) 11/03/19 07:24 RDW 15.7 % (11.6-15.6) H 11/03/19 07:24 Plt Count 445 K/MM3 (134-434) H D 11/03/19 07:24 MPV 8.2 fl (7.5-11.1) 11/03/19 07:24 CMP Sodium 139 mmol/L (136-145) 11/03/19 07:24 Potassium 5.1 mmol/L (3.5-5.1) 11/03/19 07:24 Chloride 107 mmol/L (98-107) 11/03/19 07:24 Carbon Dioxide 27 mmol/L (21-32) 11/03/19 07:24 Anion Gap 5 MMOL/L (8-16) L 11/03/19 07:24 BUN 43.3 mg/dL (7-18) H 11/03/19 07:24 Creatinine 1.7 mg/dL (0.55-1.3) H 11/03/19 07:24 Random Glucose 91 mg/dL (74-106) 11/03/19 07:24 Calcium 9.4 mg/dL (8.5-10.1) 11/03/19 07:24 Total Bilirubin 0.5 mg/dL (0.2-1) 10/31/19 06:40 AST 21 U/L (15-37) 10/31/19 06:40 ALT 26 U/L (13-61) 10/31/19 06:40 Alkaline Phosphatase 60 U/L (45-117) 10/31/19 06:40 Total Protein 6.5 g/dl (6.4-8.2) 10/31/19 06:40 Albumin 2.8 g/dl (3.4-5.0) L 10/31/19 06:40 CARDIAC ENZYMES Troponin I < 0.02 ng/ml (0.00-0.05) 10/27/19 02:10 Home Medications Medication Instructions Recorded Amlodipine Besylate 10 mg PO DAILY 06/26/18 Ferric Citrate [Auryxia] 210 mg PO DAILY 06/26/18 Glipizide 5 mg PO DAILY 10/27/19 Ertapenem Sodium [Ertapenem] 1 gm CATH DAILY 8 Days #8 vial MDD 11/03/19 1 Microbiology 10/27/19 02:10 Blood - Peripheral Venous Blood Culture - Final NO GROWTH AFTER 5 DAYS INCUBATION 10/27/19 02:10 Blood - Peripheral Venous Blood Culture - Final NO GROWTH AFTER 5 DAYS INCUBATION 10/28/19 12:40 Sputum - Expectorated Gram Stain - Final 10/28/19 12:40 Sputum - Expectorated Sputum Culture - Final NORMAL RESPIRATORY SHANE 10/27/19 04:00 Urine - Urine Clean Catch Urine Culture - Final Escherichia Coli Esbl Business Continuity Planning Director 10/27/19 20:00 Urine For Antigen Detection Legionella Antigen - Final 10/27/19 20:00 Urine For Antigen Detection Streptococcus pneumoniae Antigen (M - Final ASSESSMENT AND PLAN: This patient is a 59yof with Pmhx of HTN, DM, CKD, anemia who presented with shortness of breath, fever of 102F at home with fluctuating blood sugar at home. 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 As per Dr Baig for 14 days total. #PNA cannot r/o covid: even though covid id negative , s/p Meropenem , will continue with ertapenem 1gm x 8more days, on dc as per ID , covid is negative, CT is read; extensive BL Lower lobe consolidation, R>L. S/p steroid and Eliquis #Anemia: possible due to her CKd , folic acid and B12 normal #CHARLES on CKD: patients Cr on arrival was 2.5 (baseline around 1.8), adjust meds according to creatinine clearance which is around 25 #T2DM: continue with BGMs ACHS ISS, levemir 8units bid , being dc'd with home medication s #HTN: continue Amlodipine home meds #Hypomag: repleted #Covid is negative DVT Px: eliquis
== END 2019-11-03 15:48 | disposition home or self-care (01) | DRG 871 ==
LOC: JER 00:03 → JERBED 03:43 → J5S 10-28 18:55
PROVIDERS: ADMIT Hospitalist; ATTEND Internal Medicine
PROC: 02HV33Z Insertion of Infusion Device into Superior Vena Cava, Percutaneous Approach (ICD-10-PCS; principal; 2019-11-03)
PROC: B548ZZA Ultrasonography of Superior Vena Cava, Guidance (ICD-10-PCS; 2019-11-03)
DX: A41.9 Sepsis, unspecified organism (principal); J18.9 Pneumonia, unspecified organism; N17.9 Acute kidney failure, unspecified; N39.0 Urinary tract infection, site not specified; N18.4 Chronic kidney disease, stage 4 (severe); E11.22 Type 2 diabetes mellitus with diabetic chronic kidney disease; I12.9 Hypertensive chronic kidney disease with stage 1 through stage 4 chronic kidney disease, or unspecified chronic kidney disease; N18.9 Chronic kidney disease, unspecified; Z79.84 Long term (current) use of oral hypoglycemic drugs; E83.42 Hypomagnesemia; Z20.828 Contact with and (suspected) exposure to other viral communicable diseases; D63.1 Anemia in chronic kidney disease; B96.20 Unspecified Escherichia coli [E. coli] as the cause of diseases classified elsewhere
CPT/HCPCS: 36415; 36558; 71045-TC-FY; 71250-TC; 73110-TC-RT-FY; 73130-TC-RT-FY; 76775-TC; 77001-TC-FY; 80048; 80053; 81003; 82565; 82607; 82728; 82746; 82962; 83540; 83550; 83605; 83615; 83735; 84100; 84300; 84466; 84484; 85025; 85027; 85379; 85610; 85730; 86140; 86769; 87040; 87070; 87086; 87186; 87205; 87899; 93005; 93010; 94010; 94640; 94761; 99285-25; C1751; J1644; U0003

== ENCOUNTER 2019-11-04 05:31 | Day surgery (SDC) | payer OTHER ==
[2019-11-04] MEDS ORDERED: ERTAPENEM SODIUM 1 GM in SODIUM CHLORIDE 50 ML IVPB ONE ×2 (10:00→13:00)
[2019-11-04 13:28] VITALS: TEMP 98.3
[2019-11-04 13:29] VITALS: BP 159/81; PULSE 101
== END 2019-11-04 13:41 | disposition home or self-care (01) ==
LOC: JINFUSION 05:31
PROVIDERS: ATTEND Internal Medicine Infectious Disease
DX: A41.9 Sepsis, unspecified organism (principal); B96.20 Unspecified Escherichia coli [E. coli] as the cause of diseases classified elsewhere; E11.22 Type 2 diabetes mellitus with diabetic chronic kidney disease; I12.9 Hypertensive chronic kidney disease with stage 1 through stage 4 chronic kidney disease, or unspecified chronic kidney disease; N18.9 Chronic kidney disease, unspecified
CPT/HCPCS: 96365

== ENCOUNTER 2019-11-05 04:59 | Day surgery (SDC) | payer OTHER ==
[2019-11-05] MEDS ORDERED: ERTAPENEM SODIUM 1 GM VIAL ONE (12:16)
[2019-11-05] MEDS ORDERED: ERTAPENEM SODIUM 1 GM in SODIUM CHLORIDE 100 ML IVPB ONE (12:30)
[2019-11-05 14:05] VITALS: BP 152/82; PULSE 100; TEMP 98.4
== END 2019-11-05 14:02 | disposition home or self-care (01) ==
LOC: JINFUSION 04:59
PROVIDERS: ATTEND Internal Medicine Infectious Disease
DX: A41.9 Sepsis, unspecified organism (principal); B96.20 Unspecified Escherichia coli [E. coli] as the cause of diseases classified elsewhere; E11.22 Type 2 diabetes mellitus with diabetic chronic kidney disease; I12.9 Hypertensive chronic kidney disease with stage 1 through stage 4 chronic kidney disease, or unspecified chronic kidney disease; N18.9 Chronic kidney disease, unspecified
CPT/HCPCS: 96365

== ENCOUNTER 2019-11-06 05:06 | Day surgery (SDC) | payer OTHER ==
[2019-11-06] MEDS ORDERED: ERTAPENEM SODIUM 1 GM in SODIUM CHLORIDE 100 ML IVPB ONE (10:00)
[2019-11-06] MEDS ORDERED: SODIUM CHLORIDE 100 ML IVPB ONE (12:14)
[2019-11-06] MEDS ORDERED: ERTAPENEM SODIUM 1 GM VIAL ONE (12:14)
[2019-11-06 12:41] VITALS: TEMP 98.2
[2019-11-06 13:16] VITALS: BP 143/71; PULSE 98
== END 2019-11-06 13:32 | disposition home or self-care (01) ==
LOC: JINFUSION 05:06
PROVIDERS: ATTEND Internal Medicine Infectious Disease
DX: A41.9 Sepsis, unspecified organism (principal); B96.20 Unspecified Escherichia coli [E. coli] as the cause of diseases classified elsewhere; E11.22 Type 2 diabetes mellitus with diabetic chronic kidney disease; I12.9 Hypertensive chronic kidney disease with stage 1 through stage 4 chronic kidney disease, or unspecified chronic kidney disease; N18.9 Chronic kidney disease, unspecified
CPT/HCPCS: 96365

== ENCOUNTER 2019-11-07 05:13 | Day surgery (SDC) | payer OTHER ==
[2019-11-07] MEDS ORDERED: ERTAPENEM SODIUM 1 GM in SODIUM CHLORIDE 50 ML IVPB ONE (13:00)
[2019-11-07 13:57] VITALS: BP 141/70; PULSE 92; TEMP 98.1
== END 2019-11-07 13:58 | disposition home or self-care (01) ==
LOC: JINFUSION 05:13 → J7W 12:32 → JINFUSION 13:58
PROVIDERS: ATTEND Internal Medicine Infectious Disease
DX: A41.9 Sepsis, unspecified organism (principal); B96.20 Unspecified Escherichia coli [E. coli] as the cause of diseases classified elsewhere; E11.22 Type 2 diabetes mellitus with diabetic chronic kidney disease; I12.9 Hypertensive chronic kidney disease with stage 1 through stage 4 chronic kidney disease, or unspecified chronic kidney disease; N18.9 Chronic kidney disease, unspecified
CPT/HCPCS: 96365

== ENCOUNTER 2019-11-08 12:38 | Day surgery (SDC) | payer OTHER ==
[2019-11-08] MEDS ORDERED: ERTAPENEM SODIUM 1 GM in SODIUM CHLORIDE 50 ML IVPB ONE (13:00)
[2019-11-08] MEDS ORDERED: SODIUM CHLORIDE 50 ML IVPB ONE (13:01)
[2019-11-08] MEDS ORDERED: ERTAPENEM SODIUM 1 GM VIAL ONE (13:01)
[2019-11-08 14:20] VITALS: BP 149/77; PULSE 94; TEMP 98.6
== END 2019-11-08 14:34 | disposition home or self-care (01) ==
LOC: JINFUSION 12:38 → J7W 12:40 → JINFUSION 14:34
PROVIDERS: ATTEND Internal Medicine Infectious Disease
DX: A41.9 Sepsis, unspecified organism (principal); B96.20 Unspecified Escherichia coli [E. coli] as the cause of diseases classified elsewhere; E11.22 Type 2 diabetes mellitus with diabetic chronic kidney disease; N18.9 Chronic kidney disease, unspecified; I12.9 Hypertensive chronic kidney disease with stage 1 through stage 4 chronic kidney disease, or unspecified chronic kidney disease
CPT/HCPCS: 96365

== ENCOUNTER 2019-11-09 12:30 | Day surgery (SDC) | payer OTHER ==
[~2019-11-09 12:30] MED LIST: ERTAPENEM SODIUM 1 GM in SODIUM CHLORIDE 50 ML IVPB ONE
[2019-11-09] MEDS ORDERED: ERTAPENEM SODIUM 1 GM VIAL ONE (12:33)
[2019-11-09] MEDS ORDERED: ERTAPENEM SODIUM 1 GM in SODIUM CHLORIDE 50 ML IVPB ONE (12:45)
[2019-11-09 13:37] VITALS: BP 150/76; PULSE 95; TEMP 98.3
== END 2019-11-09 13:46 | disposition home or self-care (01) ==
LOC: JINFUSION 12:30 → J7W 12:30 → JINFUSION 13:46
PROVIDERS: ATTEND Internal Medicine Infectious Disease
DX: A41.9 Sepsis, unspecified organism (principal); B96.20 Unspecified Escherichia coli [E. coli] as the cause of diseases classified elsewhere; E11.22 Type 2 diabetes mellitus with diabetic chronic kidney disease; N18.9 Chronic kidney disease, unspecified; I12.9 Hypertensive chronic kidney disease with stage 1 through stage 4 chronic kidney disease, or unspecified chronic kidney disease
CPT/HCPCS: 96365

== ENCOUNTER 2019-11-10 05:28 | Day surgery (SDC) | payer OTHER ==
[2019-11-10] MEDS ORDERED: ERTAPENEM SODIUM 1 GM in SODIUM CHLORIDE 50 ML IVPB ONE (09:45)
[2019-11-10] MEDS ORDERED: ERTAPENEM SODIUM 1 GM VIAL ONE (12:24)
[2019-11-10] MEDS ORDERED: DEXTROSE 5%-WATER 100 ML IVPB ONE (12:28)
[2019-11-10] MEDS ORDERED: SODIUM CHLORIDE 100 ML IVPB ONE (12:30)
[2019-11-10 13:23] VITALS: TEMP 98
[2019-11-10 14:12] VITALS: BP 146/74; PULSE 94
== END 2019-11-10 13:50 | disposition home or self-care (01) ==
LOC: JINFUSION 05:28
PROVIDERS: ATTEND Internal Medicine Infectious Disease
DX: A41.9 Sepsis, unspecified organism (principal); B96.20 Unspecified Escherichia coli [E. coli] as the cause of diseases classified elsewhere; E11.22 Type 2 diabetes mellitus with diabetic chronic kidney disease; N18.9 Chronic kidney disease, unspecified
CPT/HCPCS: 96365

== ENCOUNTER → 2019-11-12 | Day surgery (SDC) | payer OTHER | END | disposition home or self-care (01) | LOC: JRADIR 10:55 | PROVIDERS: ATTEND Internal Medicine Infectious Disease | PROC: 02PY03Z Removal of Infusion Device from Great Vessel, Open Approach (ICD-10-PCS; principal; 2019-11-12) | DX: Z45.2 Encounter for adjustment and management of vascular access device (principal) | CPT/HCPCS: 36589 ==

== ENCOUNTER 2021-07-10 22:30 | Inpatient (IN) | payer OTHER ==
[2021-07-10 23:03] VITALS: BMI 30.5
[2021-07-10] MEDS ORDERED: LACTATED RINGERS SOLUTION 1000 ML INFUS.BAG IV ONE (23:04)
[2021-07-10 23:35] LABS: VENOUS BASE EXCESS -7.3 mmol/L (-2-2); VENOUS O2 SATURATION 85.2 % (70-80); VENOUS PCO2 37.2 mmHg (38-52); VENOUS PH 7.309 (7.310-7.410)
[2021-07-10 23:45] LABS: HEMATOCRIT 30.6 % (32.4-45.2); HEMOGLOBIN 9.8 GM/dL (10.7-15.3); MCH 28.2 pg (25.7-33.7); MEAN PLT VOLUME 9.7 fl (7.5-11.1); PLATELET COUNT 184 10^3/uL (134-434); RBC 3.48 M/mm3 (3.60-5.2); RDW 16.2 % (11.6-15.6); WHITE BLOOD COUNT 13.3 K/mm3 (4.0-10.0)
[2021-07-10 23:54] LABS: CHLORIDE 96 mmol/L (98-107); SODIUM 129 mmol/L (136-145)
[2021-07-10 23:56] LABS: ALBUMIN 4.2 g/dl (3.4-5.0); ANION GAP 14 MMOL/L (8-16); CALCIUM 8.9 mg/dL (8.5-10.1); CO2 19 mmol/L (21-32)
[2021-07-10 23:57] LABS: BLOOD UREA NITROGEN 77.2 mg/dL (7-18)
[2021-07-10 23:59] LABS: CREATININE 3.6 mg/dL (0.55-1.3); SGOT/AST 22 U/L (15-37)
[2021-07-11] LABS: SGPT/ALT 30 U/L (13-61)
[2021-07-11 00:01] LABS: BILIRUBIN,TOTAL 0.5 mg/dL (0.2-1); TOT PROT 8.2 g/dl (6.4-8.2)
[2021-07-11 00:02] LABS: ALK PHOS 87 U/L (45-117)
[2021-07-11] MEDS ORDERED: SODIUM CHLORIDE 0.9% 500 ML INFUS.BAG IV ONE (00:02)
[2021-07-11] MEDS ORDERED: LACTATED RINGERS SOLUTION 1000 ML INFUS.BAG IV ONE (00:02)
[2021-07-11 00:20] LABS: ANISOCYTOSIS 0; HELMET CELLS 0; HOWELL-JOLLY BODIES 0; MACROCYTOSIS 0; OVALOCYTE 0; ROULEAU 0; SICKELED CELLS 0; TARGET CELLS 0; TEAR DROP CELLS 0; TOXIC GRANULATION 0
[2021-07-11 01:06] LABS: GLUCOSE,RANDOM 520 mg/dL (74-106)
[2021-07-11 01:17] LABS: EPI CELLS 7 /uL (0-25.1); HYALINE CASTS 4 /uL (0-3.1); URINE APPEARANCE CLEAR; URINE BACTERIA 21 /uL (0-1359); URINE BILIRUBIN NEGATIVE (NEGATIVE); URINE COLOR YELLOW; URINE GLUCOSE (UA) 2+ (NEGATIVE); URINE KETONE NEGATIVE (NEGATIVE); URINE LEUK ESTERASE TRACE (NEGATIVE); URINE NITRITE NEGATIVE (NEGATIVE); URINE PROTEIN TRACE (NEGATIVE); URINE RBC 5 /uL (0-23.9); URINE UROBILINOGEN 0.2 mg/dL (0.2-1.0); URINE WBC 9 /uL (0-25.8)
[2021-07-11] MEDS ORDERED: BENZOCAINE/MENTH/CETYLPYRD CL 1 EACH LOZENGE MM PRN (03:06)
[2021-07-11] MEDS ORDERED: guaiFENesin 200 MG/10 ML 10 ML UNIT-DOSE CUPS PO PRN (03:06)
[2021-07-11] MEDS ORDERED: ALBUTEROL SO4 0.083% IH SOL 2.5 MG/3 ML VIAL.NEB. NEB ONE (03:08)
[2021-07-11] MEDS ORDERED: INSULIN (NOVOLOG) ASPART 100 UNITS/ML 10ML VIAL SQ ONE (03:09)
[2021-07-11] MEDS ORDERED: SODIUM CHLORIDE 1,000 ML IV SCH (03:15)
[2021-07-11] MEDS ORDERED: POTASSIUM CHLORIDE ORAL LIQUID 20 MEQ/15 ML PO ONE (03:20)
[2021-07-11] MEDS ORDERED: ALBUTEROL SO4 2.5/IPRATROPIUM 0.5 INH SOL 3 ML VIAL.NEB. NEB ONE ×2 (03:31→07:21)
[2021-07-11] MEDS ORDERED: POTASSIUM CHLORIDE TABS 10 MEQ TABLET.ER (FP) PO ONE (03:54)
[2021-07-11] MEDS ORDERED: ALBUTEROL SO4 HFA INHALER IH PRN (03:54)
[2021-07-11] MEDS ORDERED: POTASSIUM CHLORIDE TABS 20 MEQ TABLET.ER (FP) PO ONE (04:33)
[2021-07-11] MEDS ORDERED: HEPARIN NA (PORCINE) 5,000 UNITS/ML 1ML VIAL ONE ×3 (07:21→23:22)
[2021-07-11] MEDS: HEPARIN NA (PORCINE) 5,000 UNITS/ML 1ML VIAL SQ SCH ×3 (07:32→23:27)
[2021-07-11] MEDS: INSULIN SLIDING SCALE (NOVOLOG) 1 VIAL SQ SCH ×4 (07:32→23:20)
[2021-07-11 07:40] LABS: BASO % 0.1 % (0-2.0); HEMATOCRIT 30.5 % (32.4-45.2); HEMOGLOBIN 9.8 GM/dL (10.7-15.3); LYMPH % 7.1 % (8-40); MCH 27.7 pg (25.7-33.7); MCHC 31.9 g/dl (32.0-36.0); MEAN CELL VOLUME 86.8 fl (80-96); MEAN PLT VOLUME 9.7 fl (7.5-11.1); NEUT % 79.8 % (42.8-82.8); PLATELET COUNT 183 10^3/uL (134-434); RBC 3.52 M/mm3 (3.60-5.2); RDW 15.8 % (11.6-15.6); WHITE BLOOD COUNT 12.9 K/mm3 (4.0-10.0)
[2021-07-11] MEDS ORDERED: DEXTROSE 50%-WATER 25 GM/50 ML DISP.SYRIN ONE (08:01)
[2021-07-11] MEDS ORDERED: DEXTROSE 50%-WATER - 25 GM/50 ML VIAL IVPUSH ONE (08:06)
[2021-07-11 08:17] LABS: CALCIUM 9.2 mg/dL (8.5-10.1)
[2021-07-11 08:18] LABS: ALBUMIN 3.8 g/dl (3.4-5.0); BLOOD UREA NITROGEN 63.5 mg/dL (7-18)
[2021-07-11 08:22] LABS: BILIRUBIN,TOTAL 0.5 mg/dL (0.2-1); TOT PROT 7.5 g/dl (6.4-8.2)
[2021-07-11 08:24] LABS: CREATININE 2.6 mg/dL (0.55-1.3)
[2021-07-11 08:25] LABS: CHOLESTEROL 204 mg/dL (50-200)
[2021-07-11 08:26] LABS: LDL CHOLESTEROL (ONLY SJRH) 111 mg/dL (5-100); TRIGLYCERIDES 49 mg/dL (0-150)
[2021-07-11 08:28] LABS: HDL CHOLESTEROL 82 mg/dL (40-60)
[2021-07-11] MEDS ORDERED: HYDROCHLOROTHIAZIDE 25 MG TABLET (FP) ONE (09:26)
[2021-07-11] MEDS ORDERED: amLODIPine BESYLATE 10 MG TABLET (FP) ONE (09:26)
[2021-07-11] MEDS: amLODIPine BESYLATE 10 MG TABLET (FP) PO SCH (09:47)
[2021-07-11] MEDS ORDERED: POTASSIUM CHLORIDE ORAL LIQUID 20 MEQ/15 ML PO SCH (10:00)
[2021-07-11] MEDS ORDERED: HYDROCHLOROTHIAZIDE 25 MG TABLET (FP) PO SCH (10:00)
[2021-07-11] MEDS ORDERED: ATORVASTATIN CA 40 MG TABLET (FP) ONE (23:21)
[2021-07-11] MEDS: ATORVASTATIN CA 40 MG TABLET (FP) PO SCH (23:27)
[2021-07-12] MEDS: HEPARIN NA (PORCINE) 5,000 UNITS/ML 1ML VIAL SQ SCH ×3 (06:15→21:26)
[2021-07-12] MEDS: INSULIN SLIDING SCALE (NOVOLOG) 1 VIAL SQ SCH ×4 (06:15→21:26)
[2021-07-12] MEDS: amLODIPine BESYLATE 10 MG TABLET (FP) PO SCH (09:46)
[2021-07-12 11:06] LABS: BASO % 0.3 % (0-2.0); EOS % 1.2 % (0-4.5); HEMATOCRIT 34.2 % (32.4-45.2); HEMOGLOBIN 10.9 GM/dL (10.7-15.3); LYMPH % 10.2 % (8-40); MCH 27.9 pg (25.7-33.7); MEAN CELL VOLUME 87.4 fl (80-96); MEAN PLT VOLUME 10.3 fl (7.5-11.1); MONO % 16.4 % (3.8-10.2); NEUT % 71.9 % (42.8-82.8); PLATELET COUNT 200 10^3/uL (134-434); RBC 3.92 M/mm3 (3.60-5.2); RDW 16.3 % (11.6-15.6); WHITE BLOOD COUNT 10.3 K/mm3 (4.0-10.0)
[2021-07-12] MEDS: ALBUTEROL SO4 0.083% IH SOL 2.5 MG/3 ML VIAL.NEB. NEB SCH ×3 (11:29→20:13)
[2021-07-12 11:50] LABS: ALBUMIN 3.6 g/dl (3.4-5.0); BLOOD UREA NITROGEN 44.6 mg/dL (7-18); CALCIUM 9.4 mg/dL (8.5-10.1)
[2021-07-12 11:51] LABS: MAGNESIUM 1.9 mg/dL (1.8-2.4)
[2021-07-12 11:53] LABS: CREATININE 2.1 mg/dL (0.55-1.3)
[2021-07-12 11:55] LABS: BILIRUBIN,TOTAL 0.6 mg/dL (0.2-1); TOT PROT 7.4 g/dl (6.4-8.2)
[2021-07-12] MEDS: BUDESONIDE/FORMETEROL FUMARATE 160/4.5 mcg INHALER IH SCH ×2 (11:58→21:27)
[2021-07-12] MEDS: DOXYCYCLINE HYCLATE 100 MG CAPSULE PO SCH ×2 (12:03→18:07)
[2021-07-12] MEDS: ATORVASTATIN CA 40 MG TABLET (FP) PO SCH (21:23)
[2021-07-13] MEDS: INSULIN SLIDING SCALE (NOVOLOG) 1 VIAL SQ SCH ×3 (06:13→16:00)
[2021-07-13] MEDS: HEPARIN NA (PORCINE) 5,000 UNITS/ML 1ML VIAL SQ SCH ×2 (06:13→14:06)
[2021-07-13] MEDS: ALBUTEROL SO4 0.083% IH SOL 2.5 MG/3 ML VIAL.NEB. NEB SCH ×3 (07:44→16:01)
[2021-07-13 08:30] LABS: BASO % 0.2 % (0-2.0); EOS % 1.1 % (0-4.5); HEMATOCRIT 30.3 % (32.4-45.2); HEMOGLOBIN 10.1 GM/dL (10.7-15.3); LYMPH % 8.7 % (8-40); MCH 28.9 pg (25.7-33.7); MCHC 33.2 g/dl (32.0-36.0); MEAN CELL VOLUME 86.9 fl (80-96); MEAN PLT VOLUME 9.2 fl (7.5-11.1); MONO % 17.6 % (3.8-10.2); NEUT % 72.4 % (42.8-82.8); PLATELET COUNT 175 10^3/uL (134-434); RBC 3.49 M/mm3 (3.60-5.2); RDW 15.9 % (11.6-15.6); WHITE BLOOD COUNT 9.1 K/mm3 (4.0-10.0)
[2021-07-13 08:49] LABS: CALCIUM 8.9 mg/dL (8.5-10.1)
[2021-07-13 08:50] LABS: BLOOD UREA NITROGEN 48.4 mg/dL (7-18); MAGNESIUM 1.8 mg/dL (1.8-2.4)
[2021-07-13 08:53] LABS: CREATININE 2.1 mg/dL (0.55-1.3); PHOSPHOROUS 3.2 mg/dL (2.5-4.9)
[2021-07-13] MEDS: amLODIPine BESYLATE 10 MG TABLET (FP) PO SCH (09:14)
[2021-07-13] MEDS: BUDESONIDE/FORMETEROL FUMARATE 160/4.5 mcg INHALER IH SCH (09:14)
[2021-07-13] MEDS: DOXYCYCLINE HYCLATE 100 MG CAPSULE PO SCH (09:14)
[2021-07-13 15:05] VITALS: BP 155/76; PULSE 95; TEMP 97.8
== END 2021-07-13 18:38 | disposition home or self-care (01) | DRG 144 ==
LOC: JER 22:30 → JERBED 07-11 02:15 → J4S 07-12 01:59
PROVIDERS: ADMIT Internal Medicine
DX: J20.9 Acute bronchitis, unspecified (principal); E11.22 Type 2 diabetes mellitus with diabetic chronic kidney disease; N17.9 Acute kidney failure, unspecified; E87.2 Acidosis; N18.30 Chronic kidney disease, stage 3 unspecified; E11.65 Type 2 diabetes mellitus with hyperglycemia; D64.9 Anemia, unspecified; E78.5 Hyperlipidemia, unspecified; D72.829 Elevated white blood cell count, unspecified; E66.9 Obesity, unspecified; J06.9 Acute upper respiratory infection, unspecified; J45.909 Unspecified asthma, uncomplicated; I12.9 Hypertensive chronic kidney disease with stage 1 through stage 4 chronic kidney disease, or unspecified chronic kidney disease; Z68.30 Body mass index [BMI] 30.0-30.9, adult
CPT/HCPCS: 36415; 71045-TC-FY; 76775-TC; 80048; 80053; 80061; 81003; 82010; 82550; 82553; 82803; 82962; 83036; 83735; 84100; 85025; 87086; 93005; 93010; 93306-TC; 94640; 99285-25; C9803-CS; J1644; U0003; U0005

== ENCOUNTER 2021-09-25 05:05 | Emergency (ER) | payer OTHER ==
[2021-09-25 05:08] VITALS: TEMP 98; BMI 29.7
[2021-09-25 06:57] LABS: BASO % 0.3 % (0-2.0); EOS % 1.5 % (0-4.5); HEMATOCRIT 30.2 % (32.4-45.2); HEMOGLOBIN 9.8 GM/dL (10.7-15.3); LYMPH % 7.5 % (8-40); MCHC 32.5 g/dl (32.0-36.0); MEAN CELL VOLUME 86.4 fl (80-96); MEAN PLT VOLUME 9.8 fl (7.5-11.1); MONO % 13.8 % (3.8-10.2); NEUT % 76.9 % (42.8-82.8); PLATELET COUNT 337 10^3/uL (134-434); RBC 3.49 M/mm3 (3.60-5.2); RDW 16.4 % (11.6-15.6); WHITE BLOOD COUNT 11.8 K/mm3 (4.0-10.0)
[2021-09-25 07:15] LABS: BLOOD UREA NITROGEN 62.6 mg/dL (7-18); CALCIUM 9.3 mg/dL (8.5-10.1)
[2021-09-25 07:19] LABS: CREATININE 2.9 mg/dL (0.55-1.3)
[2021-09-25 07:20] LABS: BILIRUBIN,TOTAL 0.3 mg/dL (0.2-1)
[2021-09-25 11:47] VITALS: BP 150/70; PULSE 76; RESP 20
== END 2021-09-25 11:47 | disposition home or self-care (01) ==
LOC: JER 05:05
DX: E16.2 Hypoglycemia, unspecified (principal)
CPT/HCPCS: 36415; 80053; 82962; 85025; 99283-25